=== PATIENT | female | born 1965 | race Caucasian/White ===

== ENCOUNTER → 2016-11-29 | Outpatient (CLI) | payer MEDICARE ==
[2016-11-29 10:56] LABS: ABSOLUTE EOSINOPHILS # (AUTO) 0.1 10^3/uL (0.0-0.6); ABSOLUTE MONOCYTES (AUTO) 0.5 10^3/uL (0.1-1.4); ABSOLUTE NEUT (AUTO) 5.2 10^3/uL (1.7-8.2); BASOPHILS % (AUTO) 0.4 % (0-2); EOSINOPHILS % (AUTO) 1.1 % (0-6); LYMPHOCYTES % (AUTO) 34.2 % (13-45); MEAN CORPUSCULAR HEMOGLOBIN 30.3 pg (27.0-33.4); MEAN CORPUSCULAR HGB CONC 34.8 g/dL (32.0-36.0); MEAN CORPUSCULAR VOLUME 87 fl (80-97); RED BLOOD COUNT 5.28 10^6/uL (3.72-5.28); RED CELL DISTRIBUTION WIDTH 14.1 % (11.5-14.0); SEGMENTED NEUTROPHILS % (AUTO) 58.3 % (42-78); WHITE BLOOD COUNT 8.8 10^3/uL (4.0-10.5)
[2016-11-29 10:57] LABS: ABSOLUTE EOSINOPHILS # (AUTO) 0.1 10^3/uL (0.0-0.6); ABSOLUTE MONOCYTES (AUTO) 0.5 10^3/uL (0.1-1.4); ABSOLUTE NEUT (AUTO) 5.2 10^3/uL (1.7-8.2); BASOPHILS % (AUTO) 0.4 % (0-2); EOSINOPHILS % (AUTO) 1.1 % (0-6); LYMPHOCYTES % (AUTO) 34.2 % (13-45); MEAN CORPUSCULAR HEMOGLOBIN 30.3 pg (27.0-33.4); MEAN CORPUSCULAR HGB CONC 34.8 g/dL (32.0-36.0); MEAN CORPUSCULAR VOLUME 87 fl (80-97); RED BLOOD COUNT 5.28 10^6/uL (3.72-5.28); RED CELL DISTRIBUTION WIDTH 14.1 % (11.5-14.0); SEGMENTED NEUTROPHILS % (AUTO) 58.3 % (42-78); WHITE BLOOD COUNT 8.8 10^3/uL (4.0-10.5)
[2016-11-29 11:23] LABS: ALANINE AMINOTRANSFERASE 40 U/L (9-52); ALBUMIN 4.4 g/dL (3.5-5.0); ALKALINE PHOSPHATASE 84 U/L (38-126); ANION GAP 11 (5-19); ASPARTATE AMINO TRANSFERASE 23 U/L (14-36); BILIRUBIN,TOTAL 0.6 mg/dL (0.2-1.3); BLOOD UREA NITROGEN 15 mg/dL (7-20); CALCIUM 10.1 mg/dL (8.4-10.2); CARBON DIOXIDE 25 mmol/L (22-30); CHLORIDE 103 mmol/L (98-107); CHOLESTEROL 245.45 mg/dL (0-200); CREATININE RESULT 0.92 mg/dL (0.52-1.25); Direct HDL 35 mg/dL (>40); GLUCOSE 95 mg/dL (75-110); POTASSIUM 4.6 mmol/L (3.6-5.0); SODIUM 139.1 mmol/L (137-145); TOTAL PROTEIN 7.7 g/dL (6.3-8.2); TRIGLYCERIDES 425 mg/dL (<150)
[2016-11-29 11:38] LABS: DIRECT LDL 134 mg/dL (<100)
[2016-11-29 11:49] LABS: ALBUMIN 4.4 g/dL (3.5-5.0); ANION GAP 11 (5-19); ASPARTATE AMINO TRANSFERASE 23 U/L (14-36); BLOOD UREA NITROGEN 15 mg/dL (7-20); CALCIUM 10.1 mg/dL (8.4-10.2); CARBON DIOXIDE 25 mmol/L (22-30); CHLORIDE 103 mmol/L (98-107); CREATININE RESULT 0.92 mg/dL (0.52-1.25); GLUCOSE 95 mg/dL (75-110); POTASSIUM 4.6 mmol/L (3.6-5.0); SODIUM 139.1 mmol/L (137-145)
[2016-11-29 11:50] LABS: ALANINE AMINOTRANSFERASE 40 U/L (9-52); ALKALINE PHOSPHATASE 84 U/L (38-126); BILIRUBIN,TOTAL 0.6 mg/dL (0.2-1.3); CHOLESTEROL 245.45 mg/dL (0-200); DIRECT LDL 134 mg/dL (<100); Direct HDL 35 mg/dL (>40); TOTAL PROTEIN 7.7 g/dL (6.3-8.2); TRIGLYCERIDES 425 mg/dL (<150)
== END ==
LOC: OD 10:10
DX: R73.9 Hyperglycemia, unspecified (principal); I10 Essential (primary) hypertension; Z79.899 Other long term (current) drug therapy; K21.0 Gastro-esophageal reflux disease with esophagitis; Z92.29 Personal history of other drug therapy; F32.9 Major depressive disorder, single episode, unspecified; F40.01 Agoraphobia with panic disorder; F41.1 Generalized anxiety disorder
CPT/HCPCS: 36415; 80053; 80061; 83036; 84443; 85025

== ENCOUNTER → 2019-11-18 | Outpatient (CLI) | payer MEDICARE ==
[2019-11-18 12:26] LABS: HEMATOCRIT 40.8 % (36.0-47.0); HEMOGLOBIN 13.6 g/dL (12.0-15.5); MEAN CORPUSCULAR HEMOGLOBIN 27.4 pg (27.0-33.4); MEAN CORPUSCULAR HGB CONC 33.3 g/dL (32.0-36.0); MEAN CORPUSCULAR VOLUME 82 fl (80-97); PLATELET COUNT 440 10^3/uL (150-450); RED BLOOD COUNT 4.96 10^6/uL (3.72-5.28); RED CELL DISTRIBUTION WIDTH 15.9 % (11.5-14.0); WHITE BLOOD COUNT 14.3 10^3/uL (4.0-10.5)
[2019-11-18 12:46] LABS: ALBUMIN 3.7 g/dL (3.5-5.0); ALKALINE PHOSPHATASE 95 U/L (38-126); ANION GAP 15 (5-19); ASPARTATE AMINO TRANSFERASE 19 U/L (14-36); BILIRUBIN,DIRECT 0.4 mg/dL (0.0-0.4); BILIRUBIN,TOTAL 0.5 mg/dL (0.2-1.3); BLOOD UREA NITROGEN 8 mg/dL (7-20); CALCIUM 9.6 mg/dL (8.4-10.2); CARBON DIOXIDE 22 mmol/L (22-30); CHLORIDE 104 mmol/L (98-107); CHOLESTEROL 197.91 mg/dL (0-200); GLUCOSE 118 mg/dL (75-110); TOTAL PROTEIN 7.1 g/dL (6.3-8.2); TRIGLYCERIDES 102 mg/dL (<150)
[2019-11-18 12:57] LABS: DIRECT LDL 150 mg/dL (<100)
[2019-11-19 08:37] LABS: HEPATITIS C VIRUS AB <0.1 s/co ratio (0.0-0.9)
== END ==
LOC: OD 11:05
PROVIDERS: ATTEND Nurse Practitioner
DX: Z79.899 Other long term (current) drug therapy (principal)
CPT/HCPCS: 36415; 80053; 80061; 82306; 82607; 83036; 84443; 86803; 86804

== ENCOUNTER 2019-11-20 17:04 | Inpatient (IN) | payer MEDICARE ==
--- NOTE | 2019-11-20 17:18 | ER Document Report ---
ED Medical Screen (RME) - General Chief Complaint: Numbness of Arm Stated Complaint: RIGHT ARM NUMBNESS/NAUSEA Time Seen by Provider: 11/20/19 17:11 Primary Care Provider: OLIVIA MATA NP [Primary Care Provider] - Follow up as needed TRAVEL OUTSIDE OF THE [place] IN LAST 30 DAYS: No - HPI Notes: 11/20/19 17:15 Patient is a 54-year-old female with history of hypertension who presents complaining of inability to lift up her right arm, intermittent nausea, blurry vision, left-sided headache, feeling off balance for the past 2 days. There is no precipitating event or injury. Patient states that she did have some numbness in that right arm, but that has improved. She is able to eat and drink, but does have decreased p.o. intake. She is not on any blood thinning medications. No history of CVA. I have treated and performed a rapid initial assessment of this patient. A comprehensive ED assessment and evaluation of the patient, analysis of test results and completion of medical decision making process will be conducted by additional ED providers. PHYSICAL EXAMINATION: GENERAL: Well-appearing, well-nourished and in no acute distress. A&Ox4. Answers questions appropriately. Neuro: Sensation is intact distally. She has minimal strength in the right arm, intranet developer strength is 3+ out of 5 compared to the left. NIH roughly a 3 for the RUE deficit(s). Face is symmetric. Doctor's Discharge - Discharge Referrals: OLIVIA MATA NP [Primary Care Provider] - Follow up as needed
[2019-11-20] MEDS ORDERED: ONDANSETRON 4 MG TAB.RAPDIS PO ONE (17:19)
[2019-11-20] MEDS ORDERED: ACETAMINOPHEN 325 MG TABLET PO ONE (17:19)
--- NOTE | 2019-11-20 18:15 | RADIOLOGY REPORT (SQ) ---
EXAM DESCRIPTION: CT HEAD WITHOUT COMPLETED DATE/TIME: 11/20/2019 6:02 pm REASON FOR STUDY: right arm weakness, possible stroke x2 days COMPARISON: 11/03/2013 TECHNIQUE: Axial images acquired through the brain without intravenous contrast. Images reviewed wi th bone, brain and subdural windows. Additional sagittal and coronal reconstructions were generated. Images stored on PACS. All CT scanners at this facility use dose modulation, iterative reconstruction, and/or weight based d osing when appropriate to reduce radiation dose to as low as reasonably achievable (ALARA). [facility]: Dose Right [facility]: CareDose [facility]: Dose Right [facility]: Teradose 4D [facility]: Smart iContact RADIATION DOSE: CT Rad equipment meets quality standard of care and radiation dose reduction techniq ues were employed. CTDIvol: 53.2 mGy. DLP: 937 mGy-cm. mGy. LIMITATIONS: None. FINDINGS: VENTRICLES: Normal size and contour. CEREBRUM: There is an area of loss of hays/ white differentiation in the posterior frontal lobe. The re is no hemorrhage. There is no midline shift or mass effect. Normal hays/white matter differentiat ion. No areas of low density in the white matter. CEREBELLUM: No masses. No hemorrhage. No alteration of density. No evidence for acute infarction. EXTRAAXIAL SPACES: No fluid collections. No masses. ORBITS AND GLOBE: No intra- or extraconal masses. Normal contour of globe without masses. CALVARIUM: No fracture. PARANASAL SINUSES: No fluid or mucosal thickening. SOFT TISSUES: No mass or hematoma. OTHER: No other significant finding. IMPRESSION: Likely acute left posterior frontal infarction. EVIDENCE OF ACUTE STROKE: YES. LEFT TRE. COMMENT: Pertinent findings on the imaging study reported as a CRITICAL RESULT to RENNY HAMEED PA-C at18:08 on 11/20/2019. Category of Critical Result: Left frontal infarction. Quality ID # [id number]: Final reports with documentation of one or more dose reduction techniques (e.g., Au tomated exposure control, adjustment of the mA and/or kV according to patient size, use of iterative reconstruction technique) TECHNICAL DOCUMENTATION: JOB ID: [id number] 2010 [employer]- All Rights Reserved Reading location - IP/workstation name: [email or web address]
[2019-11-20 18:32] LABS: APPEARANCE,URINE SLIGHTLY-CLOUDY; BILIRUBIN,URINE NEGATIVE (NEGATIVE); CALCIUM OXALATE CRYSTALS,URINE RARE /HPF; COLOR,URINE AMBER; GLUCOSE, URINE NEGATIVE (NEGATIVE); KETONES,URINE NEGATIVE (NEGATIVE); PROTEIN,URINE 30 mg/dL (NEGATIVE); URINE SPECIFIC GRAVITY 1.024; UROBILINOGEN,URINE NEGATIVE mg/dL (<2.0)
[2019-11-20 18:39] LABS: ABSOLUTE BASOPHILS # (AUTO) 0.1 10^3/uL (0.0-0.2); ABSOLUTE EOSINOPHILS # (AUTO) 0.1 10^3/uL (0.0-0.6); ABSOLUTE LYMPHOCYTES (AUTO) 2.7 10^3/uL (0.5-4.7); ABSOLUTE MONOCYTES (AUTO) 1.1 10^3/uL (0.1-1.4); ABSOLUTE NEUT (AUTO) 8.3 10^3/uL (1.7-8.2); BASOPHILS % (AUTO) 0.5 % (0-2); EOSINOPHILS % (AUTO) 0.6 % (0-6); HEMATOCRIT 38.7 % (36.0-47.0); HEMOGLOBIN 13.3 g/dL (12.0-15.5); LYMPHOCYTES % (AUTO) 22.4 % (13-45); MEAN CORPUSCULAR HEMOGLOBIN 28.1 pg (27.0-33.4); MEAN CORPUSCULAR HGB CONC 34.4 g/dL (32.0-36.0); MEAN CORPUSCULAR VOLUME 82 fl (80-97); MONOCYTES % (AUTO) 8.6 % (3-13); PLATELET COUNT 427 10^3/uL (150-450); RED BLOOD COUNT 4.75 10^6/uL (3.72-5.28); RED CELL DISTRIBUTION WIDTH 15.9 % (11.5-14.0); SEGMENTED NEUTROPHILS % (AUTO) 67.9 % (42-78); TOTAL CELLS COUNTED % (AUTO) 100 %; WHITE BLOOD COUNT 12.3 10^3/uL (4.0-10.5)
--- NOTE | 2019-11-20 18:40 | EKG REPORT ---
SEVERITY:- BORDERLINE ECG - SINUS RHYTHM BORDERLINE T ABNORMALITIES, ANT-LAT LEADS VPCs : Confirmed by: Aroldo Burkett 20-Nov-2019 18:39:28
[2019-11-20 18:49] LABS: INTERNATIONAL RATION (INR) 0.99; PARTIAL THROMBOPLASTIN TIME 29.2 SEC (23.5-35.8); PROTHROMBIN TIME 13.1 SEC (11.4-15.4)
--- NOTE | 2019-11-20 18:49 | ER Document Report ---
ED Neuro Symptoms/Deficit - General Chief Complaint: S/S of Possible Stroke Stated Complaint: RIGHT ARM NUMBNESS/NAUSEA Time Seen by Provider: 11/20/19 17:11 Mode of Arrival: Ambulatory Information source: Patient Notes: 54-year-old woman presents to the emergency department with a history of awoke on Saturday morning with numbness and weakness in the right arm. Stated that she fell on Saturday onto the right side injuring her right shoulder she went to the urgent care x-ray was performed and revealed no fracture according to the patient. She continues to have numbness and weakness in the right upper extremity, she denies new weakness in the right arm. She also noted an episode of numbness in the left facial area. Speech is been normal she has a history of blurred vision in the left eye. She denies any other new neurologic findings. TRAVEL OUTSIDE OF THE [place] IN LAST 30 DAYS: No - Related Data Allergies/Adverse Reactions: ibuprofen Allergy (Verified 11/20/19 19:27) Penicillins Allergy (Verified 11/20/19 19:27) Home Medications: Lyrica. Vicodin. Propranolol. Cymbalta Past Medical History - General Information source: Patient - Social History Smoking Status: Current Every Day Smoker Chew tobacco use (# tins/day): No Frequency of alcohol use: None Drug Abuse: None Family History: Reviewed & Not Pertinent Patient has suicidal ideation: No Patient has homicidal ideation: No Review of Systems - Review of Systems Notes: Constitutional: Negative for fever. HENT: Negative for sore throat. Eyes: Negative for visual changes. Cardiovascular: Negative for chest pain. Respiratory: Negative for shortness of breath. Gastrointestinal: Negative for abdominal pain, vomiting or diarrhea. Genitourinary: Negative for dysuria. Musculoskeletal: Negative for back pain. Skin: Negative for rash. Neurological: + Numbness and tingling upper extremity, right lower extremity 10 point ROS negative except as marked above and in HPI. Physical Exam - Vital signs Vitals: Pulse Ox 96 11/20/19 17:05 - Notes Notes: PHYSICAL EXAMINATION: Physical Exam: General: Well-appearing, well-nourished; attentive, alert and interactive with good eye contact; acting appropriately for age HEAD: Normocephalic; atraumatic; No swelling EYES: PERRL; Conjunctivae clear, no drainage; EOMI ENT: External ears without lesions; External auditory canal is patent; TMs without erythema, landmarks clear and well visualized; no rhinorrhea; Pharynx without erythema or lesions, no tonsillar hypertrophy, airway patent, mucous membranes pink and moist NECK: Supple, no cervical lymphadenopathy, no masses CARD: Regular rate and rhythm; no murmurs, no rubs, no gallops, capillary refill < 2 seconds, symmetric pulses RESP: Respiratory rate and effort are normal. There is normal chest excursion. No respiratory distress, no retractions, no stridor, no nasal flaring, no accessory muscle use. The lungs are clear to auscultation bilaterally, no wheezing, no rales, no rhonchi. ABD/GI: Normal bowel sounds; non-distended; soft, non-tender, no rebound, no g uarding, no palpable organomegaly EXT: Decreased range of motion at the right shoulder secondary to pain. She has good private secretary in the right hand and good flexion in the right elbow. All the other joints move well. SKIN: Intact, no lesion NEURO: + Numbness of the right upper extremity, no facial asymmetry; Moves all extremities equally; Motor and sensory function intact, speech is normal, normal facial symmetry. Cerebellar testing unable to perform [id number] right upper extremity due to shoulder pain. [id number] normal left upper extremity [id number] normal. PSYCH: Normal mood, normal affect. Course - Re-evaluation Re-evalutation: 11/20/19 20:42 54-year-old woman who presents with neurologic symptoms which began 2 days ago. Apparently she awoke on Saturday morning with numbness and tingling along with weakness in her right upper extremity. She also notes some numbness and tingling in the right lower extremity with weakness. She sustained a fall at home injuring her right shoulder. My exam tonight reveals good private secretary and flexion in the right upper extremity with normal strength and function in the lower extremities. Her INH score is 1-2 based on the loss of sensory function. Cerebellar testing appears normal. Vision intact with no speech involvement. She has good recall and orientation. The patient is not a candidate for TPA based on symptoms greater than 48 hours. She is being admitted to the hospital for further evaluation for stroke risks and treatment. - Vital Signs Vital signs: Temp Pulse Resp BP Pulse Ox 98.0 F 74 18 111/39 L 100 11/21/19 08:29 11/21/19 08:29 11/21/19 08:29 11/21/19 08:29 11/21/19 08:29 Patient with right-sided numbness and tingling in her right arm and right lower extremity. History of a fall with a secondary associated left shoulder pain. CT of the brain reveals a likely acute posterior frontal infarct. Spoke with the hospitalist, , he will admit the patient to the hospital for further evaluation and treatment. - Laboratory Result Diagrams: 11/21/19 04:59 11/21/19 04:59 Laboratory results interpreted by me: 11/20/19 11/20/19 11/20/19 18:00 18:30 18:30 WBC 12.3 H RDW 15.9 H Absolute Neuts (auto) 8.3 H Calcium 10.3 H ALT 37 H Urine Protein 30 H Urine Blood SMALL H 11/20/19 20:36 I have reviewed laboratory data and used this information for the treatment decisions regarding the patient. - EKG Interpretation by Me EKG shows normal: Sinus rhythm - Borderline T wave abnormalities otherwise normal EKG rate of 82. Discharge - Discharge Clinical Impression: CVA (cerebral vascular accident) Qualifiers: CVA mechanism: unspecified Qualified Code(s): I63.9 - Cerebral infarction, unspecified Contusion of right shoulder Qualifiers: Encounter type: initial encounter Qualified Code(s): S40.011A - Contusion of right shoulder, initial encounter Hypertension Qualifiers: Hypertension type: essential hypertension Qualified Code(s): I10 - Essential (primary) hypertension Condition: Stable Disposition: ADMITTED INPATIENT Admitting Provider: Loretta (Hospitalist) Unit Admitted: [facility]
[2019-11-20] MEDS ORDERED: ASPIRIN 325 MG TABLET PO ONE (18:51)
[2019-11-20] MEDS ORDERED: HYDROCODONE/ACETAMINOPHEN 5-325 MG TABLET PO ONE (18:53)
[2019-11-20 18:55] LABS: ALBUMIN 3.9 g/dL (3.5-5.0); ALKALINE PHOSPHATASE 99 U/L (38-126); ANION GAP 11 (5-19); ASPARTATE AMINO TRANSFERASE 28 U/L (14-36); BILIRUBIN,DIRECT 0.4 mg/dL (0.0-0.4); BILIRUBIN,TOTAL 0.5 mg/dL (0.2-1.3); BLOOD UREA NITROGEN 15 mg/dL (7-20); CALCIUM 10.3 mg/dL (8.4-10.2); CARBON DIOXIDE 27 mmol/L (22-30); CHLORIDE 100 mmol/L (98-107); GLUCOSE 110 mg/dL (75-110); POTASSIUM 4.1 mmol/L (3.6-5.0); TOTAL PROTEIN 7.7 g/dL (6.3-8.2)
[2019-11-20] MEDS ORDERED: LABETALOL HCL INJ 20 MG/4 ML DISP.SYRIN IV PRN (20:14)
[2019-11-20] MEDS ORDERED: DOCUSATE SODIUM 100 MG CAPSULE PO PRN (20:14)
[2019-11-20] MEDS ORDERED: TEMAZEPAM 15 MG CAPSULE PO PRN (20:14)
[2019-11-20] MEDS ORDERED: MAGNESIUM HYDROXIDE SUSP 30 ML UDCUP PO PRN (20:14)
--- NOTE | 2019-11-20 20:16 | RADIOLOGY REPORT (SQ) ---
EXAM DESCRIPTION: XR HUMERUS x-ray two views COMPLETED DATE/TME: 11/20/2019 18:40 CLINICAL HISTORY: 54 years, Female, fall COMPARISON: None. FINDINGS: No fracture or dislocation. Soft tissues are unremarkable. IMPRESSION: No acute abnormality.
[2019-11-20] MEDS ORDERED: PROMETHAZINE HCL INJ 25 MG/1 ML VIAL IV PRN (20:19)
[2019-11-20] MEDS ORDERED: LEVALBUTEROL HCL NEB 0.63 MG/3 ML AMPUL NEB PRN (20:19)
[2019-11-20] MEDS ORDERED: MAG HYDROX/AL HYDROX/SIMETH SUSP 30 ML UDCUP PO PRN (20:19)
[2019-11-20] MEDS ORDERED: GUAIFENESIN SYRP 200 MG/10 ML UDC PO PRN (20:19)
[2019-11-20] MEDS ORDERED: MORPHINE SULFATE 10 MG/ML INJ IV PRN ×3 (20:19)
[2019-11-20] MEDS ORDERED: RINGERS SOLUTION,LACTATED 1,000 ML IV PRN (20:22)
[2019-11-20] MEDS: HEPARIN SOD (PORCINE) 5,000 UNIT/ML 1 ML VIAL SUBCUT SCH (21:15)
[2019-11-20] MEDS: FAMOTIDINE 20 MG TABLET PO SCH (21:15)
[2019-11-20] MEDS: CLOPIDOGREL BISULFATE 75 MG TABLET PO SCH (21:15)
[2019-11-21] MEDS: ACETAMINOPHEN 325 MG TABLET PO PRN ×4 (01:05→16:45)
--- NOTE | 2019-11-21 03:16 | PDOC H&P ---
History of Present Illness Admission Date/PCP: 11/20/2019 19:04 OLIVIA MATA NP Patient complains of: Right-sided numbness History of Present Illness: PAULA JOHNSON is a 54 year old female who presented to the emergency room with a 2-day history of numbness in her right arm. She admits waking on 11/18/2019 with numbness and weakness in her right (nondominant) upper extremity. Later that day she fell injuring her right shoulder and presented to urgent care where an x-ray was performed that revealed no evidence of fracture. The numbness in her right arm has been constant and moderately severe since she first noticed it on Saturday morning, the weakness in her right arm has been gradually improving. Her numbness has been accompanied by a constant dull left-sided headache and has been associated with an episode of transient left facial numbness, a "feeling of being off balance" as well as intermittent episodes of nausea. She denies other associated or accompanying signs and symptoms. She denies prior similar episodes. She has not identified any aggravating or ameliorating factors for her right arm numbness. In the emergency room she was found to have right upper extremity weakness and numbness on clinical evaluation and a CT scan that confirmed an acute left posterior frontal CVA. Patient was subsequently admitted to the stroke protocol on [facility] for further evaluation and treatment. Past Medical History Cardiac Medical History: Reports: Hypertension Denies: Atrial Fibrillation, Congestive Heart Failure, Coronary Artery Disease, DVT, Myocardial Infarction, Hyperlipidema, Pulmonary Embolism Pulmonary Medical History: Denies: Asthma, Chronic Obstructive Pulmonary Disease (COPD) EENT Medical History: Denies: Cataracts, Ears - Hearing aids Neurological Medical History: Denies: Hemorrhagic CVA, Ischemic CVA, Seizures Endocrine Medical History: Denies: Diabetes Mellitus Type 1, Diabetes Mellitus Type 2, Hyperthyroidism, Hypothyroidism Renal/ Medical History: Reports: Other - Vitamin D deficiency Denies: Chronic Kidney Disease, Nephrolithiasis Malignancy Medical History: Reports: None GI Medical History: Denies: Cirrhosis, Crohn's Disease, Gastroesophageal Reflux Disease, Hepatitis, Peptic Ulcer Disease, Ulcerative Colitis Musculoskeltal Medical History: Reports: Arthritis - Chronic degenerative spinal disc disease with chronic back pain Denies: Gout Skin Medical History: Denies: Eczema, Psoriasis Psychiatric Medical History: Reports: Tobacco Dependency Denies: Alcohol Dependency, Substance Abuse Traumatic Medical History: Reports: None Hematology: Denies: Anemia, Bleeding Tendencies Infectious Medical History: Reports: None Past Surgical History Past Surgical History: Reports: Orthopedic Surgery - Back surgery Social History Information Source: Patient Lives with: Spouse/Significant other Smoking Status: Current Every Day Smoker Electronic Cigarette use?: Yes Frequency of Alcohol Use: None Hx Recreational Drug Use: No Drugs: None Hx Prescription Drug Abuse: No - Advance Directive Resuscitation Status: Full Code Surrogate healthcare decision maker:: Ajith Johnson Family History Family History: CVA, Hypertension. denies: CAD, DM, Malignancy Parental Family History Reviewed: Yes Children Family History Reviewed: No Sibling(s) Family History Reviewed.: Yes Medication/Allergy Home Medications: Albuterol Sulfate [Ventolin Hfa 8 gm Mdi] 2 puff IH Q6HP PRN 11/20/19 Duloxetine HCl [Cymbalta 30 mg Capsule.dr] 30 mg PO DAILY 11/20/19 Hydrocodone/Acetaminophen [[place] 10-325 mg Tablet] 1 tab PO Q4HP PRN MDD 2-3 DAILY 11/20/19 Lansoprazole 30 mg PO DAILY 11/20/19 Pregabalin [Lyrica 50 Mg Capsule] 50 mg PO TID 11/20/19 Propranolol HCl [Inderal 40 Mg Tablet] 40 mg PO BID 11/20/19 Allergies/Adverse Reactions: ibuprofen Allergy (Verified 11/20/19 19:27) Penicillins Allergy (Verified 11/20/19 19:27) Review of Systems Constitutional: PRESENT: as per HPI, headache(s). ABSENT: chills, fever(s) Eyes: PRESENT: visual disturbances - Chronic blurry vision. ABSENT: other - Eye pain Ears: ABSENT: hearing changes, other - Ear pain Nose, Mouth, and Throat: PRESENT: as per HPI, headache(s). ABSENT: mouth pain, sore throat Cardiovascular: ABSENT: chest pain, palpitations Respiratory: ABSENT: cough, dyspnea Gastrointestinal: PRESENT: as per HPI, nausea. ABSENT: abdominal pain, constipation, diarrhea, vomiting Genitourinary: ABSENT: dysuria, hematuria Musculoskeletal: PRESENT: as per HPI. ABSENT: back pain, joint swelling Integumentary: ABSENT: pruritus, rash Neurological: PRESENT: as per HPI, focal weakness, lack of coordination, numb ness. ABSENT: abnormal speech, confusion, convulsions, memory loss, syncope Psychiatric: ABSENT: anxiety, depression Endocrine: ABSENT: cold intolerance, heat intolerance, polydipsia, polyphagia, polyuria Hematologic/Lymphatic: ABSENT: easy bleeding, easy bruising Allergic/Immunologic: ABSENT: seasonal rhinorrhea Physical Exam Vital Signs: Temp Pulse Resp BP Pulse Ox 86 28 H 106/45 L 95 11/20/19 18:00 11/20/19 19:14 11/20/19 19:14 11/20/19 19:14 Intake & Output 11/18/19 11/19/19 11/20/19 23:59 23:59 23:59 Weight 73 kg General appearance: PRESENT: no acute distress, cooperative Head exam: PRESENT: atraumatic, normocephalic Eye exam: PRESENT: conjunctiva pink. ABSENT: conjunctival injection, scleral icterus Ear exam: PRESENT: normal external ear exam. ABSENT: bleeding, drainage Mouth exam: PRESENT: dry mucosa, neck supple Neck exam: ABSENT: thyromegaly, tracheal deviation Respiratory exam: PRESENT: clear to auscultation josé luis, symmetrical, unlabored Cardiovascular exam: PRESENT: RRR. ABSENT: clicks, gallop, rubs Pulses: PRESENT: normal radial pulses, normal dorsalis pedis pul Vascular exam: PRESENT: normal capillary refill. ABSENT: pallor GI/Abdominal exam: PRESENT: normal bowel sounds, soft. ABSENT: tenderness Rectal exam: PRESENT: deferred Extremities exam: ABSENT: joint swelling, pedal edema Musculoskeletal exam: ABSENT: deformity, dislocation Neurological exam: PRESENT: alert, oriented to person, oriented to place, oriented to time, oriented to situation, CN II-XII grossly intact, motor sensory deficit - Right upper extremity weakness: Business Control Specialist strength 2/4 compared to 4/4 on the left. Decreased sensation of the right upper extremity to tactile stimulation. Psychiatric exam: PRESENT: appropriate affect, normal mood Skin exam: PRESENT: dry, intact, warm. ABSENT: jaundice, rash, urticaria Results Laboratory Results: 11/20/19 18:30 11/20/19 18:30 11/20/19 11/20/19 11/20/19 18:00 18:30 18:30 WBC 12.3 H RBC 4.75 Hgb 13.3 Hct 38.7 MCV 82 MCH 28.1 MCHC 34.4 RDW 15.9 H Plt Count 427 Seg Neutrophils % 67.9 Sodium 138.1 Potassium 4.1 Chloride 100 Carbon Dioxide 27 Anion Gap 11 BUN 15 Creatinine 0.63 Est GFR ( Amer) > 60 Glucose 110 Calcium 10.3 H Total Bilirubin 0.5 AST 28 Alkaline Phosphatase 99 Total Protein 7.7 Albumin 3.9 Urine Color GIULIANA Urine Appearance SLIGHTLY-CLOUDY Urine pH 5.0 Ur Specific [place] 1.024 Urine Protein 30 H Urine Glucose (UA) NEGATIVE Urine Ketones NEGATIVE Urine Blood SMALL H Urine RBC (Auto) 7 Impressions: Head CT 11/20/19 17:18 IMPRESSION: Likely acute left posterior frontal infarction. EVIDENCE OF ACUTE STROKE: YES. LEFT TRE. Assessment and Plan - Diagnosis (1) Acute ischemic cerebrovascular accident (CVA) involving anterior cerebral artery territory Is this a current diagnosis for this admission?: Yes (2) Hypertension Qualifiers: Hypertension type: essential hypertension Qualified Code(s): I10 - Essential (primary) hypertension Is this a current diagnosis for this admission?: Yes (3) Vitamin D deficiency, unspecified Is this a current diagnosis for this admission?: Yes (4) Tobacco use disorder, continuous Is this a current diagnosis for this admission?: Yes - Plan Summary Summary: Patient is admitted to [facility] per the stroke protocol where she will receive routine supportive and symptomatic cares. An MRI of the brain will be obtained. A bilateral carotid Doppler study will be obtained. An echocardiogram will be obtained. Patient will be started on clopidogrel 75 mg p.o. daily. Routine la boratory evaluations will be obtained per the stroke protocol. Patient will be continued on her usual home medications as appropriate once her medication list has been verified and reconciled. She will use morphine sulfate 2 to 4 mg IV every 2 hours as needed for pain and Ativan 1 mg IV every 4 hours as needed for anxiety. Smoking cessation is advised and counseled briefly at the bedside. - Time Time Spent with patient: 25-34 minutes Smoking Cessation Education: 3 to 10 minutes Anticipated discharge: Home - Inpatient Certification Based on my medical assessment, after consideration of the patient's comorbidities, presenting symptoms, or acuity I expect that the services needed warrant INPATIENT care.: Yes I certify that my determination is in accordance with my understanding of Medicare's requirements for reasonable and necessary INPATIENT services [42 CFR 412.3e].: Yes Medical Necessity: Need Close Monitoring Due to Risk of Patient Decompensation, Need For Continuous Telemetry Monitoring, Need for Neurological Checks, Risk of Complication if Not Cared For in Hospital
[2019-11-21 05:20] LABS: HEMATOCRIT 34.9 % (36.0-47.0); MEAN CORPUSCULAR HEMOGLOBIN 27.7 pg (27.0-33.4); MEAN CORPUSCULAR HGB CONC 34.3 g/dL (32.0-36.0); MEAN CORPUSCULAR VOLUME 81 fl (80-97); PLATELET COUNT 339 10^3/uL (150-450); RED BLOOD COUNT 4.32 10^6/uL (3.72-5.28); RED CELL DISTRIBUTION WIDTH 16.1 % (11.5-14.0); WHITE BLOOD COUNT 9.8 10^3/uL (4.0-10.5)
[2019-11-21 05:41] LABS: CHOLESTEROL 155.32 mg/dL (0-200)
[2019-11-21 05:46] LABS: ANION GAP 9 (5-19); BLOOD UREA NITROGEN 12 mg/dL (7-20); CALCIUM 9.2 mg/dL (8.4-10.2); CARBON DIOXIDE 24 mmol/L (22-30); CHLORIDE 106 mmol/L (98-107); GLUCOSE 108 mg/dL (75-110); POTASSIUM 3.8 mmol/L (3.6-5.0)
[2019-11-21 05:48] LABS: TRIGLYCERIDES 150 mg/dL (<150)
[2019-11-21 05:52] LABS: DIRECT LDL 102 mg/dL (<100)
[2019-11-21] MEDS: HEPARIN SOD (PORCINE) 5,000 UNIT/ML 1 ML VIAL SUBCUT SCH ×3 (06:46→21:16)
[2019-11-21] MEDS: CHOLECALCIFEROL (D3) 1,000 UNIT (25 MCG) TABLET PO SCH (10:25)
[2019-11-21] MEDS: CLOPIDOGREL BISULFATE 75 MG TABLET PO SCH (10:25)
[2019-11-21] MEDS: FAMOTIDINE 20 MG TABLET PO SCH ×2 (10:25→21:16)
[2019-11-21] MEDS: NICOTINE 21 MG/24 HR PATCH.TD24 TD PRN (10:32)
--- NOTE | 2019-11-21 11:37 | PDOC PROGRESS REPORT ---
Subjective Progress Note for:: 11/21/19 Subjective:: The patient was very pleased to show me that she has regained a lot of function in her right arm. She was waving it around. She has not had her MRI yet nor her echocardiogram or carotid studies so I told her that she could not go home today but I would rather want to watch her for another day. Reason For Visit: ACUTE LEFT ANTERIOR CEREBRAL DISTRIBUTION Physical Exam Vital Signs: Temp Pulse Resp BP Pulse Ox 98.0 F 74 18 111/39 L 100 11/21/19 08:29 11/21/19 08:29 11/21/19 08:29 11/21/19 08:29 11/21/19 08:29 Intake & Output 11/20/19 11/21/19 11/22/19 06:59 06:59 06:59 Output Total 0 Balance 0 Weight 73.2 kg General appearance: PRESENT: no acute distress, cooperative, well-developed Head exam: PRESENT: atraumatic, normocephalic Ear exam: PRESENT: normal external ear exam. ABSENT: bleeding, drainage Neck exam: ABSENT: carotid bruit, JVD, lymphadenopathy Respiratory exam: PRESENT: clear to auscultation josé luis, symmetrical, unlabored. ABSENT: rales, rhonchi, tachypnea, wheezes Cardiovascular exam: PRESENT: RRR, +S1, +S2. ABSENT: diastolic murmur, systolic murmur GI/Abdominal exam: PRESENT: distended - Possibly slightly distended, normal bow el sounds, soft. ABSENT: guarding, tenderness Rectal exam: PRESENT: deferred Gentrourinary exam: ABSENT: indwelling catheter Extremities exam: ABSENT: joint swelling, pedal edema Musculoskeletal exam: PRESENT: normal inspection. ABSENT: deformity Neurological exam: PRESENT: alert, awake, oriented to person, oriented to place, oriented to time, oriented to situation, CN II-XII grossly intact, motor sensory deficit - Right upper extremity still with weakness and decreased protection specialist strength Psychiatric exam: PRESENT: appropriate affect. ABSENT: agitated, anxious Focused psych exam: ABSENT: delusional, restlessness Results Laboratory Results: 11/21/19 04:59 11/21/19 04:59 11/20/19 11/20/19 11/20/19 18:00 18:30 18:30 WBC 12.3 H RBC 4.75 Hgb 13.3 Hct 38.7 MCV 82 MCH 28.1 MCHC 34.4 RDW 15.9 H Plt Count 427 Seg Neutrophils % 67.9 Sodium 138.1 Potassium 4.1 Chloride 100 Carbon Dioxide 27 Anion Gap 11 BUN 15 Creatinine 0.63 Est GFR ( Amer) > 60 Glucose 110 Calcium 10.3 H Total Bilirubin 0.5 AST 28 Alkaline Phosphatase 99 Total Protein 7.7 Albumin 3.9 Triglycerides Cholesterol LDL Cholesterol Direct VLDL Cholesterol HDL Cholesterol Urine Color GIULIANA Urine Appearance SLIGHTLY-CLOUDY Urine pH 5.0 Ur Specific [place] 1.024 Urine Protein 30 H Urine Glucose (UA) NEGATIVE Urine Ketones NEGATIVE Urine Blood SMALL H Urine RBC (Auto) 7 11/21/19 11/21/19 11/21/19 04:59 04:59 04:59 WBC 9.8 RBC 4.32 Hgb 12.0 Hct 34.9 L MCV 81 MCH 27.7 MCHC 34.3 RDW 16.1 H Plt Count 339 Seg Neutrophils % Sodium 138.7 Potassium 3.8 Chloride 106 Carbon Dioxide 24 Anion Gap 9 BUN 12 Creatinine 0.62 Est GFR ( Amer) > 60 Glucose 108 Calcium 9.2 Total Bilirubin AST Alkaline Phosphatase Total Protein Albumin Triglycerides 150 Cholesterol 155.32 LDL Cholesterol Direct 102 H VLDL Cholesterol 30.0 HDL Cholesterol 36 L Urine Color Urine Appearance Urine pH Ur Specific [place] Urine Protein Urine Glucose (UA) Urine Ketones Urine Blood Urine RBC (Auto) Impressions: Head CT 11/20/19 17:18 IMPRESSION: Likely acute left posterior frontal infarction. EVIDENCE OF ACUTE STROKE: YES. LEFT TRE. Humerus X-Ray 11/20/19 18:40 IMPRESSION: No acute abnormality. Assessment and Plan - Diagnosis (1) Acute ischemic cerebrovascular accident (CVA) involving anterior cerebral artery territory Is this a current diagnosis for this admission?: Yes (2) Hypertension Qualifiers: Hypertension type: essential hypertension Qualified Code(s): I10 - Essential (primary) hypertension Is this a current diagnosis for this admission?: Yes (3) Hypercholesterolemia Is this a current diagnosis for this admission?: Yes (4) Vitamin D deficiency, unspecified Is this a current diagnosis for this admission?: Yes (5) Tobacco use disorder, continuous Is this a current diagnosis for this admission?: Yes (6) Leukocytosis Qualifiers: Leukocytosis type: unspecified Qualified Code(s): D72.829 - Elevated white blood cell count, unspecified Is this a current diagnosis for this admission?: Yes (7) Right hemiplegia Is this a current diagnosis for this admission?: Yes - Plan Summary Summary: Patient is admitted to [facility] per the stroke protocol where she will receive routine supportive and symptomatic cares. An MRI of the brain will be obtained. A bilateral carotid Doppler study will be obtained. An echocardiogram will be obtained. Patient will be started on clopidogrel 75 mg p.o. daily. Routine laboratory evaluations will be obtained per the stroke protocol. Patient will be continued on her usual home medications as appropriate once her medication list has been verified and reconciled. She will use morphine sulfate 2 to 4 mg IV every 2 hours as needed for pain and Ativan 1 mg IV every 4 hours as needed for anxiety. Smoking cessation is advised and counseled briefly at the bedside. 11/21/2019 The patient is extremely pleased that she has regained substantial function of her right arm. It is still weak. The CT scan showed stroke involving the left anterior cerebral artery distribution. This afternoon the radiologist called me and stated that it appeared that there was distribution of lesions in the posterior cerebral artery territory as well. This makes it very suspicious for thromboembolic stroke. The echocardiogram and carotid ultrasounds were ordered as routine and I change those to urgent. The tech will need to come in from home to perform the scans. I have put the patient on dual antiplatelet therapy. We will continue her subcutaneous heparin for DVT prophylaxis. The lipid panel that Dr. Burgos ordered shows increased total cholesterol and increased LDL. I have started atorvastatin daily. She does have a history of hypertension but her blood pressures are in the normal range at this time. Will monitor as we do not want her pressures to be too low or too high. She is also being monitored on telemetry. She still smokes cigarettes. I explained how this could be devastating. It puts her at risk for another stroke as well as coronary artery disease and peripheral vascular disease along with renovascular disease. She is wearing a patch at this time and I will continue to strongly encourage tobacco cessation. Physical therapy has been ordered. She still has some deficits in her right arm and she will benefit from occupational therapy as well. We will continue her vitamin D supplement for her deficiency. In addition, her white blood cell count was up yesterday. This was likely an acute reaction to the stroke. It is normal today. We will continue to monitor her laboratory studies. - Time Time Spent with patient: 25-34 minutes Smoking Cessation Education: 3 to 10 minutes Medications reviewed and adjusted accordingly: Yes Anticipated discharge: Home with Homehealth
--- NOTE | 2019-11-21 15:41 | RADIOLOGY REPORT (SQ) ---
EXAM DESCRIPTION: MRI HEAD WITHOUT COMPLETED DATE/TIME: 11/21/2019 1:29 pm REASON FOR STUDY: Right upper extremity numbness and weakness. Recent left TRE infarct. COMPARISON: CT head, 11/20/2019. CT head, 11/03/2019 TECHNIQUE: Multiplanar imaging includes non-contrasted T1, T2, FLAIR, and diffusion with ADC map seq uences. Images stored on PACS. LIMITATIONS: None. FINDINGS: ANATOMY: No anomalies. Normal vascular flow voids. Pituitary fossa normal. CSF SPACES: Normal in size and contour. No hemorrhage. CEREBRUM: Sulci and gyri normal in size and contour. There is diffuse hyperintense T2 signal in the left high parietal lobe paramedian region consistent with recent TRE infarct. This demonstrates suyapa esponding hyperintense T2 signal and diffusion restriction consistent with subacute infarct. No evid ence of hemorrhage, mass, or extraaxial fluid collection. POSTERIOR FOSSA: No signal alteration. No hemorrhage. No edema, masses or mass effect. Internal colt tory canals, cerebello-pontine angles, mastoids normal. DIFFUSION IMAGING: Restricted diffusion in the distribution of the left TRE left parietal lobe. No r estricted diffusion in the right cerebral hemisphere or cerebellum. ORBITS: No masses. Globes normal. PARANASAL SINUSES: No fluid levels. Mucosa normal. OTHER: No other significant finding. IMPRESSION: 1. Restricted diffusion and hyperintense T2 and T2 FLAIR signal in the left occipital lobe suggestive of a late acute to subacute left FOUNDRY FINISHER infarct. Given the distribution of TRE and FOUNDRY FINISHER infarcts, embol ic phenomena in is a consideration. Clinical correlation is recommended. 2. Late acute to subacute infarct in the left TRE distribution as described on recent CT. EVIDENCE OF ACUTE STROKE: Yes COMMENT: Findings discussed with Dr. Haley on 11/21/2019 at 1535 hours. TECHNICAL DOCUMENTATION: JOB ID: [id number] 2010 [employer]- All Rights Reserved Reading location - IP/workstation name: [email or web address]
[2019-11-21] MEDS: PREGABALIN 50 MG CAPSULE PO SCH (18:34)
--- NOTE | 2019-11-21 21:28 | XCELERA REPORT ---
[address] [address] Transthoracic Echocardiogram Report Name: PAULA JOHNSON Age: 54 yrs Gender: Female : 1965 Patient Status: Inpatient Patient Location: [address] [place], [place] [address] Study Date: 11/21/2019 07:52 PM Height: 65 in Weight: 161 lb BSA: 1.8 m2 Procedure: A two-dimensional transthoracic echocardiogram with color flow and Doppler was performed. The study was technically difficult with many images being suboptimal in quality. The study was technically limited with all images being suboptimal in quality. Reason For Study: Multifocal embolic stroke History: Multifocal embolic stroke. Ordering Physician: RON CAMP Performed By: Mona Vivas Interpretation Summary There is no obvious cardiac source of embolus noted on this transthoracic echocardiogram. Follow-up with a [facility] is suggested if cardiac source is still suspected. The left ventricle is normal in size. There is normal left ventricular wall thickness. LV EF is 70% Left ventricular systolic function is normal. Doppler measurements suggest impaired left ventricular relaxation, which is associated with grade I/IV or mild diastolic dysfunction The left ventricular wall motion is normal. No Thrombus.cannot comment on ASD,VSD,or PFO. The right ventricle is grossly normal size. The right atrium is normal. Right atrium not well visualized secondary to technical limitations The left atrial size is normal. There is no evidence of mitral valve prolapse. There is no vegetation seen on the mitral valve. There is no mitral valve stenosis. There is a trace amount of mitral regurgitation There is no aortic valve stenosis There is no LVOT obstruction. No aortic regurgitation is present. There is no tricuspid stenosis. There is a trace amount of tricuspid regurgitation Right ventricular systolic pressure is normal. RVSP is 14 to 19 mm of Hg , with RA mean of 0 to5. There is no pulmonic valvular stenosis. There is no pulmonic valvular regurgitation. The aortic root is not well visualized but is probably normal size. The inferior vena cava appeared small and collapsed with respiration (RAP 0-5 mmHg) There is no pericardial effusion. There is no obvious cardiac source of embolus noted on this transthoracic echocardiogram. Follow-up with a [facility] is suggested if cardiac source is still suspected MMode/2D Measurements & Calculations RVDd: 2.7 cm LVIDd: 4.9 cm FS: 39.9 % Ao root diam: 2.3 cm IVSd: 1.0 cm LVIDs: 2.9 cm EDV(Teich): 110.7 ml Ao root area: 4.0 cm2 LVPWd: 0.77 cm ESV(Teich): 32.8 ml LA dimension: 3.8 cm EF(Teich): 70.4 % Doppler Measurements & Calculations MV E max murali: MV P1/2t max murali: Ao V2 max: LV V1 max P.9 cm/sec 90.0 cm/sec 145.3 cm/sec 7.4 mmHg MV A max murali: MV P1/2t: 74.8 msec Ao max P.4 mmHgLV V1 max: 93.8 cm/sec MVA(P1/2t): 2.9 cm2 135.7 cm/sec MV E/A: 0.89 MV dec slope: 352.5 cm/sec2 MV dec time: 0.20 sec TV V2 max: PA V2 max: MV P1/2t-pr_phl: 184.6 cm/sec 99.7 cm/sec 74.8 msec TV max PG: PA max P.0 mmHg 13.6 mmHg Left Ventricle The left ventricle is normal in size. There is normal left ventricular wall thickness. LV EF is 70%. Left ventricular systolic function is normal. Doppler measurements suggest impaired left ventricular relaxation, which is associated with grade I/IV or mild diastolic dysfunction. The left ventricular wall motion is normal. No Thrombus.cannot comment on ASD,VSD,or PFO. Right Ventricle The right ventricle is grossly normal size. The right ventricle is not well visualized secondary to technical limitations. Atria The right atrium is normal. Right atrium not well visualized secondary to technical limitations. The left atrial size is normal. Mitral Valve There is no evidence of mitral valve prolapse. There is no vegetation seen on the mitral valve. There is no mitral valve stenosis. There is a trace amount of mitral regurgitation. Aortic Valve There is no aortic valve stenosis. There is no LVOT obstruction. No aortic regurgitation is present. Tricuspid Valve There is no tricuspid stenosis. There is a trace amount of tricuspid regurgitation. Right ventricular systolic pressure is normal. RVSP is 14 to 19 mm of Hg , with RA mean of 0 to5. Pulmonic Valve There is no pulmonic valvular stenosis. There is no pulmonic valvular regurgitation. Great Vessels The aortic root is not well visualized but is probably normal size. The inferior vena cava appeared small and collapsed with respiration (RAP 0-5 mmHg). Effusions There is no pericardial effusion. : RON CAMP Lakshmi
[2019-11-21] MEDS ORDERED: ATORVASTATIN CALCIUM 40 MG TABLET PO SCH (22:00)
--- NOTE | 2019-11-21 23:54 | RADIOLOGY REPORT (SQ) ---
EXAM DESCRIPTION: Bilateral carotid duplex exam CLINICAL HISTORY: 54 years Female; Multi-focal embolic stroke TECHNIQUE: Grayscale and Doppler (color and pulse) ultrasound of bilateral carotid arteries and the vertebral arteries was performed. Stenosis assessment based on Carotid Artery Stenosis: Zhu-Scale and Doppler US DiagnosisSociety of Radiologists in Ultrasound Consensus Conference; Radiology, Jul 2003, Vol. 229:340-346 COMPARISON: None. FINDINGS: All velocities in cm/sec. Right carotid: CCA PSV: 99.2 cm/s Proximal ICA velocities: 112 cm/s (Normal < 124/40) Proximal ICA EDV: 30.0 cm/s Mid ICA PSV: 85.9 cm/s Distal ICA PSV: 83.0 cm/s ICA/CCA PSV ratio: 0.9 (Normal < 2.0) ECA: 110.0 cm/s Right vertebral: Antegrade flow Comment: Moderate plaque is seen at the origin of the internal carotid artery. Visually does not result in significant narrowing. Color and spectral waveforms are within normal limits. Left carotid: CCA PSV: 74.2 cm/s ICA velocities: 675 cm/s(Normal < 124/40) Proximal ICA EDV: Not measured Mid ICA PSV: 194 cm/s, end-diastolic velocity: 92.3 cm/s Distal ICA PSV: 223 cm/s ICA/CCA PSV ratio: 8.0 (Normal < 2.0) ECA: 168 cm/s Left vertebral: Antegrade flow Comment: Large amount of plaque is seen in the proximal internal carotid artery. This results in greater than 70% but less than near occlusion narrowing. IMPRESSION: 1. Less than 50% stenosis of the right internal carotid artery. 2. Greater than 70% stenosis of the left internal carotid artery. Marked elevated velocities. Technologist notified Dr. Burgos of the preliminary findings 11/21/2019 at 2122 hours
[2019-11-22] MEDS: LORAZEPAM INJ 2 MG/1 ML VIAL IV PRN ×2 (02:22→13:02)
[2019-11-22] MEDS: HYDROCODONE/ACETAMINOPHEN 10-325 MG TABLET PO PRN ×2 (02:22→08:37)
[2019-11-22] MEDS: HEPARIN SOD (PORCINE) 5,000 UNIT/ML 1 ML VIAL SUBCUT SCH (05:06)
[2019-11-22 06:56] LABS: ANION GAP 8 (5-19); BLOOD UREA NITROGEN 8 mg/dL (7-20); CALCIUM 8.6 mg/dL (8.4-10.2); CARBON DIOXIDE 23 mmol/L (22-30); CHLORIDE 106 mmol/L (98-107); GLUCOSE 116 mg/dL (75-110); POTASSIUM 3.8 mmol/L (3.6-5.0)
[2019-11-22] MEDS ORDERED: ALBUTEROL SULFATE HFA (90 MCG/PUFF) 8 GM MDI IH PRN (09:49)
[2019-11-22] MEDS: CHOLECALCIFEROL (D3) 1,000 UNIT (25 MCG) TABLET PO SCH (09:49)
[2019-11-22] MEDS: CLOPIDOGREL BISULFATE 75 MG TABLET PO SCH (09:49)
[2019-11-22] MEDS: PREGABALIN 50 MG CAPSULE PO SCH (09:50)
[2019-11-22] MEDS: FAMOTIDINE 20 MG TABLET PO SCH (09:51)
[2019-11-22] MEDS: NICOTINE 21 MG/24 HR PATCH.TD24 TD PRN (09:55)
[2019-11-22] MEDS ORDERED: DULOXETINE HCL 30 MG CAPSULE.DR PO SCH (10:00)
[2019-11-22] MEDS ORDERED: ASPIRIN 81 MG TABLET, ENT COATED PO SCH (10:00)
--- NOTE | 2019-11-22 12:16 | PDOC PROGRESS REPORT ---
Subjective Progress Note for:: 11/22/19 Reason For Visit: ACUTE LEFT ANTERIOR CEREBRAL DISTRIBUTION Physical Exam Vital Signs: Temp Pulse Resp BP Pulse Ox 97.5 F 82 18 113/46 L 98 11/22/19 08:34 11/22/19 08:34 11/22/19 08:34 11/22/19 08:34 11/22/19 08:34 Intake & Output 11/21/19 11/22/19 11/23/19 06:59 06:59 06:59 Intake Total 1411 Output Total 0 Balance 0 1411 Weight 73.2 kg 75 kg Results Laboratory Results: 11/21/19 04:59 11/22/19 04:50 11/22/19 04:50 Sodium 137.3 Potassium 3.8 Chloride 106 Carbon Dioxide 23 Anion Gap 8 BUN 8 Creatinine 0.52 Est GFR ( Amer) > 60 Glucose 116 H Calcium 8.6 Magnesium 2.1 Impressions: Head CT 11/20/19 17:18 IMPRESSION: Likely acute left posterior frontal infarction. EVIDENCE OF ACUTE STROKE: YES. LEFT TRE. Humerus X-Ray 11/20/19 18:40 IMPRESSION: No acute abnormality. Head MRI 11/21/19 00:00 IMPRESSION: 1. Restricted diffusion and hyperintense T2 and T2 FLAIR signal in the left occipital lobe suggestive of a late acute to subacute left BALL POINT SPLITTER infarct. Given the distribution of TRE and BALL POINT SPLITTER infarcts, embolic phenomena in is a consideration. Clinical correlation is recommended. 2. Late acute to subacute infarct in the left TRE distribution as described on recent CT. EVIDENCE OF ACUTE STROKE: Yes Carotid Doppler Study 11/21/19 16:15 IMPRESSION: 1. Less than 50% stenosis of the right internal carotid artery. 2. Greater than 70% stenosis of the left internal carotid artery. Marked elevated velocities. Technologist notified Dr. Burgos of the preliminary findings 11/21/2019 at 2122 hours Assessment and Plan - Diagnosis (1) Acute ischemic cerebrovascular accident (CVA) involving anterior cerebral artery territory Is this a current diagnosis for this admission?: Yes (2) Hypertension Qualifiers: Hypertension type: essential hypertension Qualified Code(s): I10 - Essential (primary) hypertension Is this a current diagnosis for this admission?: Yes (3) Hypercholesterolemia Is this a current diagnosis for this admission?: Yes (4) Vitamin D deficiency, unspecified Is this a current diagnosis for this admission?: Yes (5) Tobacco use disorder, continuous Is this a current diagnosis for this admission?: Yes (6) Leukocytosis Qualifiers: Leukocytosis type: unspecified Qualified Code(s): D72.829 - Elevated white blood cell count, unspecified Is this a current diagnosis for this admission?: Yes (7) Right hemiplegia Is this a current diagnosis for this admission?: Yes - Plan Summary Summary: Patient is admitted to [facility] per the stroke protocol where she will receive routine supportive and symptomatic cares. An MRI of the brain will be obtained. A bilateral carotid Doppler study will be obtained. An echocardiogram will be obtained. Patient will be started on clopidogrel 75 mg p.o. daily. Routine laboratory evaluations will be obtained per the stroke protocol. Patient will be continued on her usual home medications as appropriate once her medication list has been verified and reconciled. She will use morphine sulfate 2 to 4 mg IV every 2 hours as needed for pain and Ativan 1 mg IV every 4 hours as needed for anxiety. Smoking cessation is advised and counseled briefly at the bedside. 11/21/2019 The patient is extremely pleased that she has regained substantial function of her right arm. It is still weak. The CT scan showed stroke involving the left anterior cerebral artery distribution. This afternoon the radiologist called me and stated that it appeared that there was distribution of lesions in the posterior cerebral artery territory as well. This makes it very suspicious for thromboembolic stroke. The echocardiogram and carotid ultrasounds were ordered as routine and I change those to urgent. The tech will need to come in from home to perform the scans. I have put the patient on dual antiplatelet therapy. We will continue her subcutaneous heparin for DVT prophylaxis. The lipid panel that Dr. Burgos ordered shows increased total cholesterol and increased LDL. I have started atorvastatin daily. She does have a history of hypertension but her blood pressures are in the norm al range at this time. Will monitor as we do not want her pressures to be too low or too high. She is also being monitored on telemetry. She still smokes cigarettes. I explained how this could be devastating. It puts her at risk for another stroke as well as coronary artery disease and peripheral vascular disease along with renovascular disease. She is wearing a patch at this time and I will continue to strongly encourage tobacco cessation. Physical therapy has been ordered. She still has some deficits in her right arm and she will benefit from occupational therapy as well. We will continue her vitamin D supplement for her deficiency. In addition, her white blood cell count was up yesterday. This was likely an acute reaction to the stroke. It is normal today. We will continue to monitor her laboratory studies.
--- NOTE | 2019-11-22 12:58 | PDOC DISCHARGE SUMMARY ---
Impression - Admit/DC Date/PCP Admission Date/Primary Care Provider: 11/20/19 20:56 OLIVIA MATA NP Discharge Date: 11/22/19 - Discharge Diagnosis (1) Acute ischemic cerebrovascular accident (CVA) involving anterior cerebral artery territory Is this a current diagnosis for this admission?: Yes (2) Hypertension Is this a current diagnosis for this admission?: Yes (3) Hypercholesterolemia Is this a current diagnosis for this admission?: Yes (4) Vitamin D deficiency, unspecified Is this a current diagnosis for this admission?: Yes (5) Tobacco use disorder, continuous Is this a current diagnosis for this admission?: Yes (6) Leukocytosis Is this a current diagnosis for this admission?: Yes (7) Right hemiplegia Is this a current diagnosis for this admission?: Yes (8) Carotid stenosis, left Is this a current diagnosis for this admission?: Yes - Assessment Summary: Patient is admitted to [facility] per the stroke protocol where she will receive routine supportive and symptomatic cares. An MRI of the brain will be obtained. A bilateral carotid Doppler study will be obtained. An echocardiogram will be obtained. Patient will be started on clopidogrel 75 mg p.o. daily. Routine laboratory evaluations will be obtained per the stroke protocol. Patient will be continued on her usual home medications as appropriate once her medication list has been verified and reconciled. She will use morphine sulfate 2 to 4 mg IV every 2 hours as needed for pain and Ativan 1 mg IV every 4 hours as needed for anxiety. Smoking cessation is advised and counseled briefly at the bedside. 11/21/2019 The patient is extremely pleased that she has regained substantial function of her right arm. It is still weak. The CT scan showed stroke involving the left anterior cerebral artery distribution. This afternoon the radiologist called me and stated that it appeared that there was distribution of lesions in the posterior cerebral artery territory as well. This makes it very suspicious for thromboembolic stroke. The echocardiogram and carotid ultrasounds were ordered as routine and I change those to urgent. The tech will need to come in from home to perform the scans. I have put the patient on dual antiplatelet therapy. We will continue her subcutaneous heparin for DVT prophylaxis. The lipid panel that Dr. Burgos ordered shows increased total cholesterol and increased LDL. I have started atorvastatin daily. She does have a history of hypertension but her blood pressures are in the normal range at this time. Will monitor as we do not want her pressures to be too low or too high. She is also being monitored on telemetry. She still smokes cigarettes. I explained how this could be devastating. It puts her at risk for another stroke as well as coronary artery disease and peripheral vascular disease along with renovascular disease. She is wearing a patch at this time and I will continue to strongly encourage tobacco cessation. Physical therapy has been ordered. She still has some deficits in her right arm and she will benefit from occupational therapy as well. We will continue her vitamin D supplement for her deficiency. In addition, her white blood cell count was up yesterday. This was likely an acute reaction to the stroke. It is normal today. We will continue to monitor her laboratory studies. 11/22/2019 The patient has regained approximately 50% of her strength on the right. Gross sensation seems to be intact. Her blood pressure has been stable. She is extremely anxious regarding the stroke and carotid stenosis. I spoke with Dr. Dill, vascular surgery at [facility], and he instructed me to continue the antiplatelet therapy with Plavix and aspirin. I am going to continue the high-dose atorvastatin therapy. She is extremely anxious regarding the new diagnosis and potential treatment plans. - Additional Information Resuscitation Status: Full Code Discharge Diet: Cardiac Discharge Activity: Balance Activity w/Rest Referrals: OLIVIA MATA NP [Primary Care Provider] - Follow up as needed Prescriptions: Atorvastatin Calcium [Lipitor 80 mg Tablet] 80 mg PO QHS #30 tablet Clopidogrel Bisulfate [Plavix 75 mg Tablet] 75 mg PO DAILY 30 Days #30 tablet Home Medications: Albuterol Sulfate [Ventolin Hfa 8 gm Mdi] 2 puff IH Q6HP PRN 11/20/19 Duloxetine HCl [Cymbalta 30 mg Capsule.dr] 30 mg PO DAILY 11/20/19 Hydrocodone/Acetaminophen [[place] 10-325 mg Tablet] 1 tab PO Q4HP PRN MDD 2-3 DAILY 11/20/19 Lansoprazole 30 mg PO DAILY 11/20/19 Pregabalin [Lyrica 50 mg Capsule] 50 mg PO TID 11/20/19 Albuterol Sulfate [Ventolin Hfa 8 gm Mdi] 2 puff IH Q6HP PRN inhaler 11/22/19 Aspirin [Ecotrin 81 mg EC Tablet] 162 mg PO DAILY tabec 11/22/19 Atorvastatin Calcium [Lipitor 80 mg Tablet] 80 mg PO QHS #30 tablet 11/22/19 Clopidogrel Bisulfate [Plavix 75 mg Tablet] 75 mg PO DAILY 30 Days #30 tablet 11/22/19 Nicotine [Nicoderm 21 mg/24 Hr Transderm Patch] 1 each TD DAILYP PRN patch.td24 11/22/19 History of Present Illiness History of Present Illness: PAULA JOHNSON is a 54 year old female who presented to the emergency room with a 2-day history of numbness in her right arm. She admits waking on 11/18/2019 with numbness and weakness in her right (nondominant) upper extremity. Later that day she fell injuring her right shoulder and presented to urgent care where an x-ray was performed that revealed no evidence of fracture. The numbness in her right arm has been constant and moderately severe since she first noticed it on Saturday morning, the weakness in her right arm has been gradually improving. Her numbness has been accompanied by a constant dull left-sided headache and has been associated with an episode of transient left facial numbness, a "feeling of being off balance" as well as intermittent episodes of nausea. She denies other associated or accompanying signs and symptoms. She denies prior similar episodes. She has not identified any aggravating or ameliorating factors for her right arm numbness. In the emergency room she was found to have right upper extremity weakness and numbness on clinical evaluation and a CT scan that confirmed an acute left posterior frontal CVA. Patient was subsequently admitted to the stroke protocol on [facility] for further evaluation and treatment. Hospital Course Hospital Course: The patient had benign hospital course. Her symptoms are improving but a high- grade left carotid artery stenosis was identified. I spoke to vascular surgery at [facility]. She will continue high-dose statin therapy, dual antiplatelet therapy and she will follow-up with the surgeon within the next week for p ossible procedure in 2 weeks. Physical Exam Vital Signs: Temp Pulse Resp BP Pulse Ox 97.5 F 82 18 113/46 L 98 11/22/19 08:34 11/22/19 08:34 11/22/19 08:34 11/22/19 08:34 11/22/19 08:34 Intake & Output 11/21/19 11/22/19 11/23/19 06:59 06:59 06:59 Intake Total 1411 Output Total 0 Balance 0 1411 Weight 73.2 kg 75 kg General appearance: PRESENT: cooperative, mild distress - Her distress is concerned over the new diagnosis and severity of the left carotid stenosis, well-developed Head exam: PRESENT: atraumatic, normocephalic Respiratory exam: PRESENT: clear to auscultation josé luis, symmetrical, unlabored. ABSENT: crackles, prolonged expiratory phas, rales, rhonchi, tachypnea, wheezes Cardiovascular exam: PRESENT: RRR, +S1, +S2 GI/Abdominal exam: PRESENT: normal bowel sounds, soft. ABSENT: distended, firm, guarding, tenderness Rectal exam: PRESENT: deferred Neurological exam: PRESENT: CN II-XII grossly intact, motor sensory deficit - The right arm is still weak. 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 The patient has very weak abduction. She can raise her arm over her head but it is extremely limited. She has no cognitive deficits and gross sensation appears to have returned to the arm. Psychiatric exam: PRESENT: depressed, flat affect. ABSENT: agitated, anxious Results Laboratory Results: WBC 9.8 10^3/uL (4.0-10.5) 11/21/19 04:59 RBC 4.32 10^6/uL (3.72-5.28) 11/21/19 04:59 Hgb 12.0 g/dL (12.0-15.5) 11/21/19 04:59 Hct 34.9 % (36.0-47.0) L 11/21/19 04:59 MCV 81 fl (80-97) 11/21/19 04:59 MCH 27.7 pg (27.0-33.4) 11/21/19 04:59 MCHC 34.3 g/dL (32.0-36.0) 11/21/19 04:59 RDW 16.1 % (11.5-14.0) H 11/21/19 04:59 Plt Count 339 10^3/uL (150-450) 11/21/19 04:59 Lymph % (Auto) 22.4 % (13-45) 11/20/19 18:30 [place] % (Auto) 8.6 % (3-13) 11/20/19 18:30 Eos % (Auto) 0.6 % (0-6) 11/20/19 18:30 Baso % (Auto) 0.5 % (0-2) 11/20/19 18:30 Absolute Neuts (auto) 8.3 10^3/uL (1.7-8.2) H 11/20/19 18:30 Absolute Lymphs (auto) 2.7 10^3/uL (0.5-4.7) 11/20/19 18:30 Absolute Monos (auto) 1.1 10^3/uL (0.1-1.4) 11/20/19 18:30 Absolute Eos (auto) 0.1 10^3/uL (0.0-0.6) 11/20/19 18:30 Absolute Basos (auto) 0.1 10^3/uL (0.0-0.2) 11/20/19 18:30 Seg Neutrophils % 67.9 % (42-78) 11/20/19 18:30 PT 13.1 SEC (11.4-15.4) 11/20/19 18:30 INR 0.99 11/20/19 18:30 APTT 29.2 SEC (23.5-35.8) 11/20/19 18:30 Sodium 137.3 mmol/L (137-145) 11/22/19 04:50 Potassium 3.8 mmol/L (3.6-5.0) 11/22/19 04:50 Chloride 106 mmol/L (98-107) 11/22/19 04:50 Carbon Dioxide 23 mmol/L (22-30) 11/22/19 04:50 Anion Gap 8 (5-19) 11/22/19 04:50 BUN 8 mg/dL (7-20) 11/22/19 04:50 Creatinine 0.52 mg/dL (0.52-1.25) 11/22/19 04:50 Est GFR ( Amer) > 60 (>60) 11/22/19 04:50 Est GFR (MDRD) Non-Af > 60 (>60) 11/22/19 04:50 Glucose 116 mg/dL (75-110) H 11/22/19 04:50 Calcium 8.6 mg/dL (8.4-10.2) 11/22/19 04:50 Magnesium 2.1 mg/dL (1.6-2.3) 11/22/19 04:50 Total Bilirubin 0.5 mg/dL (0.2-1.3) 11/20/19 18:30 Direct Bilirubin 0.4 mg/dL (0.0-0.4) 11/20/19 18:30 Neonat Total Bilirubin Not Reportable 11/20/19 18:30 Neonat Direct Bilirubin Not Reportable 11/20/19 18:30 Neonat Indirect Bili Not Reportable 11/20/19 18:30 AST 28 U/L (14-36) 11/20/19 18:30 ALT 37 U/L (<35) H 11/20/19 18:30 Alkaline Phosphatase 99 U/L (38-126) 11/20/19 18:30 Total Protein 7.7 g/dL (6.3-8.2) 11/20/19 18:30 Albumin 3.9 g/dL (3.5-5.0) 11/20/19 18:30 Triglycerides 150 mg/dL (<150) 11/21/19 04:59 Cholesterol 155.32 mg/dL (0-200) 11/21/19 04:59 LDL Cholesterol Direct 102 mg/dL (<100) H 11/21/19 04:59 VLDL Cholesterol 30.0 mg/dL (10-31) 11/21/19 04:59 HDL Cholesterol 36 mg/dL (>40) L 11/21/19 04:59 Vitamin D 25-Hydroxy < 12.8 ng/mL (14.7-68.3) L 11/22/19 04:50 Urine Color GIULIANA 11/20/19 18:00 Urine Appearance SLIGHTLY-CLOUDY 11/20/19 18:00 Urine pH 5.0 (5.0-9.0) 11/20/19 18:00 Ur Specific [place] 1.024 11/20/19 18:00 Urine Protein 30 mg/dL (NEGATIVE) H 11/20/19 18:00 Urine Glucose (UA) NEGATIVE mg/dL (NEGATIVE) 11/20/19 18:00 Urine Ketones NEGATIVE mg/dL (NEGATIVE) 11/20/19 18:00 Urine Blood SMALL (NEGATIVE) H 11/20/19 18:00 Urine Nitrite (Reflex) NEGATIVE (NEGATIVE) 11/20/19 18:00 Urine Bilirubin NEGATIVE (NEGATIVE) 11/20/19 18:00 Urine Urobilinogen NEGATIVE mg/dL (<2.0) 11/20/19 18:00 Leukocyte Esterase Rfl NEGATIVE (NEGATIVE) 11/20/19 18:00 Urine RBC (Auto) 7 /HPF 11/20/19 18:00 Urine Bacteria (Auto) TRACE /HPF 11/20/19 18:00 Urine WBC (Reflex) 3 /HPF 11/20/19 18:00 Squamous Epi Cells Auto 7 /HPF 11/20/19 18:00 Calcium Oxalate Cr Auto RARE /HPF 11/20/19 18:00 Urine Mucus (Auto) MANY /LPF 11/20/19 18:00 Urine Ascorbic Acid NEGATIVE (NEGATIVE) 11/20/19 18:00 Impressions: Head CT 11/20/19 17:18 IMPRESSION: Likely acute left posterior frontal infarction. EVIDENCE OF ACUTE STROKE: YES. LEFT TRE. Humerus X-Ray 11/20/19 18:40 IMPRESSION: No acute abnormality. Head MRI 11/21/19 00:00 IMPRESSION: 1. Restricted diffusion and hyperintense T2 and T2 FLAIR signal in the left occipital lobe suggestive of a late acute to subacute left BARMAID infarct. Given the distribution of TRE and BARMAID infarcts, embolic phenomena in is a consideration. Clinical correlation is recommended. 2. Late acute to subacute infarct in the left TRE distribution as described on recent CT. EVIDENCE OF ACUTE STROKE: Yes Carotid Doppler Study 11/21/19 16:15 IMPRESSION: 1. Less than 50% stenosis of the right internal carotid artery. 2. Greater than 70% stenosis of the left internal carotid artery. Marked elevated velocities. Technologist notified Dr. Burgos of the preliminary findings 11/21/2019 at 2122 hours Plan Health Concerns: High-grade left carotid stenosis. Already with embolic stroke in the anterior and posterior cerebral artery distributions in a smoker with a history of hypertension. Plan of Treatment: As discussed with vascular surgery the patient will discharge. I have arranged for home health with home occupational therapy. She will follow-up with Dr. Dill [facility] vascular surgery. Goals: Treatment of left carotid stenosis either by endarterectomy, atherectomy or stenting. The patient must stop smoking. She will continue high-dose statin therapy and antiplatelet therapy and she will need to follow a cardiac diet. Time Spent: Greater than 30 Minutes Stroke Is this a Stroke Patient?: Yes Stroke Pt being discharged on Anti-thrombolytic therapy?: Yes Stroke Pt being discharged on Anti-coagulation therapy?: No Reason(s) for not prescribing Anti-coagulation therapy:: Not indicated Stroke Pt being discharged on Statins?: Yes Acute Heart Failure - Is this a Heart Failure Patient?: No
[2019-11-22 13:45] VITALS: BP 119/71
== END 2019-11-22 14:03 | disposition home or self-care (01) | DRG 65 ==
LOC: ER 17:04 → EH 20:56 → 3W 23:11
PROVIDERS: ADMIT Emergency Medicine; ATTEND Emergency Medicine
DX: I63.522 Cerebral infarction due to unspecified occlusion or stenosis of left anterior cerebral artery (principal); G81.91 Hemiplegia, unspecified affecting right dominant side; I65.22 Occlusion and stenosis of left carotid artery; I10 Essential (primary) hypertension; E55.9 Vitamin D deficiency, unspecified; R20.0 Anesthesia of skin; I63.322 Cerebral infarction due to thrombosis of left anterior cerebral artery; M19.90 Unspecified osteoarthritis, unspecified site; F17.290 Nicotine dependence, other tobacco product, uncomplicated; E78.00 Pure hypercholesterolemia, unspecified; F17.210 Nicotine dependence, cigarettes, uncomplicated; D72.829 Elevated white blood cell count, unspecified; Z82.3 Family history of stroke; Z82.49 Family history of ischemic heart disease and other diseases of the circulatory system; Z79.51 Long term (current) use of inhaled steroids; Z88.6 Allergy status to analgesic agent; Z88.0 Allergy status to penicillin; Z91.81 History of falling; Z79.899 Other long term (current) drug therapy
CPT/HCPCS: 36415; 70450; 70551; 80048; 80053; 80061; 81001; 82306; 82607; 82652; 83036; 83735; 84443; 85025; 85027; 85610; 85730; 86803; 86804; 93005; 93010; 93306; 93880; 99285; J1644; J2060; J3490; J7120

== ENCOUNTER → 2019-12-23 | Outpatient (CLI) | payer MEDICARE ==
[2019-12-23 10:45] LABS: ALBUMIN 3.8 g/dL (3.5-5.0); ALKALINE PHOSPHATASE 95 U/L (38-126); ASPARTATE AMINO TRANSFERASE 17 U/L (14-36); BILIRUBIN,DIRECT 0.3 mg/dL (0.0-0.4); BILIRUBIN,TOTAL 0.5 mg/dL (0.2-1.3); CHOLESTEROL 113.96 mg/dL (0-200); TRIGLYCERIDES 117 mg/dL (<150)
[2019-12-23 10:56] LABS: DIRECT LDL 62 mg/dL (<100)
== END ==
LOC: OD 09:24
PROVIDERS: ATTEND Nurse Practitioner
DX: I63.429 Cerebral infarction due to embolism of unspecified anterior cerebral artery (principal)
CPT/HCPCS: 36415; 80061; 80076

== ENCOUNTER 2020-05-06 12:14 | Emergency (ER) | payer MEDICARE ==
[2020-05-06] MEDS ORDERED: HYDROCODONE/ACETAMINOPHEN 5-325 MG TABLET PO ONE (13:00)
[2020-05-06] MEDS ORDERED: NORMAL SALINE 1000 ML 1,000 ML IV ONE ×2 (13:02→20:43)
[2020-05-06] MEDS ORDERED: CLINDAMYCIN 300 MG/D5W RTU 300 MG/50 ML RTUPB IV ONE (13:02)
--- NOTE | 2020-05-06 13:04 | ER Document Report ---
ED Medical Screen (RME) - General Chief Complaint: Facial Swelling Stated Complaint: FACIAL PAIN,SWELLING/POST SURGICAL Time Seen by Provider: 05/06/20 12:57 Primary Care Provider: OLIVIA MATA NP [Primary Care Provider] - Follow up as needed Notes: Patient is a 54-year-old female who presents emergency department with a chief complaint of left lower jaw swelling. Patient states that over the past couple days, she is noticed that the swelling to the area has gotten worse. Patient has 1 tooth to the area that is infected. She has not been able to go to the dentist. States that she has some body aches. Denies any fever. Patient has history of a CVA and a left carotid endarterectomy. Patient also has left ear pain. Exam: Heart rate 119. Very tender left lower jaw. Possible abscess. Edema noted to left external auditory canal. I have greeted and performed a rapid initial assessment of this patient. A comprehensive ED assessment and evaluation of the patient, analysis of test results and completion of medical decision making process will be conducted by an additional ED providers. TRAVEL OUTSIDE OF THE [place] IN LAST 30 DAYS: No - Related Data Allergies/Adverse Reactions: ibuprofen Allergy (Verified 11/20/19 19:27) Penicillins Allergy (Verified 11/20/19 19:27) Past Medical History - Past Medical History Cardiac Medical History: Reports: Hx Hypertension Denies: Hx Atrial Fibrillation, Hx Congestive Heart Failure, Hx Coronary Artery Disease, Hx DVT, Hx Heart Attack, Hx Hypercholesterolemia, Hx Pulmonary Embolism Pulmonary Medical History: Denies: Hx Asthma, Hx COPD Neurological Medical History: Denies: Hx Seizures Endocrine Medical History: Denies: Hx Diabetes Mellitus Type 1, Hx Diabetes Mellitus Type 2, Hx Hyperthyroidism, Hx Hypothyroidism GI Medical History: Denies: Hx Cirrhosis, Hx Crohn's Disease, Hx Gastroesophageal Reflux Disease, Hx Hepatitis, Hx Ulcerative Colitis Musculoskeltal Medical History: Reports Hx Arthritis - Chronic degenerative spinal disc disease with chronic back pain, Denies Hx Gout Skin Medical History: Denies Hx Eczema, Denies Hx Psoriasis Psychiatric Medical History: Reports: Hx Depression Infectious Medical History: Denies: Hx Hepatitis Past Surgical History: Reports: Hx Orthopedic Surgery - Back surgery Physical Exam - Vital signs Vitals: Pulse Resp BP Pulse Ox 119 H 18 126/65 H 97 05/06/20 12:20 05/06/20 12:20 05/06/20 12:20 05/06/20 12:20 Course - Vital Signs Vital signs: Temp Pulse Resp BP Pulse Ox 119 H 18 126/65 H 97 05/06/20 12:20 05/06/20 12:20 05/06/20 12:20 05/06/20 12:20 Doctor's Discharge - Discharge Referrals: OLIVIA MATA INFORMATICIST [Primary Care Provider] - Follow up as needed
[2020-05-06 13:37] LABS: ABSOLUTE LYMPHOCYTES (AUTO) 1.9 10^3/uL (0.5-4.7); ABSOLUTE MONOCYTES (AUTO) 0.7 10^3/uL (0.1-1.4); ABSOLUTE NEUT (AUTO) 6.2 10^3/uL (1.7-8.2); BASOPHILS % (AUTO) 0.5 % (0-2); EOSINOPHILS % (AUTO) 0.5 % (0-6); HEMATOCRIT 32.8 % (36.0-47.0); HEMOGLOBIN 10.3 g/dL (12.0-15.5); LYMPHOCYTES % (AUTO) 21.8 % (13-45); MEAN CORPUSCULAR HEMOGLOBIN 22.9 pg (27.0-33.4); MEAN CORPUSCULAR HGB CONC 31.3 g/dL (32.0-36.0); MEAN CORPUSCULAR VOLUME 73 fl (80-97); MONOCYTES % (AUTO) 7.4 % (3-13); PLATELET COUNT 798 10^3/uL (150-450); RED BLOOD COUNT 4.48 10^6/uL (3.72-5.28); RED CELL DISTRIBUTION WIDTH 18.9 % (11.5-14.0); SEGMENTED NEUTROPHILS % (AUTO) 69.8 % (42-78); TOTAL CELLS COUNTED % (AUTO) 100 %; WHITE BLOOD COUNT 8.9 10^3/uL (4.0-10.5)
[2020-05-06 13:49] LABS: ALBUMIN 3.5 g/dL (3.5-5.0); ALKALINE PHOSPHATASE 250 U/L (38-126); ANION GAP 11 (5-19); ASPARTATE AMINO TRANSFERASE 34 U/L (14-36); BILIRUBIN,DIRECT 0.1 mg/dL (0.0-0.4); BILIRUBIN,TOTAL 0.5 mg/dL (0.2-1.3); BLOOD UREA NITROGEN 12 mg/dL (7-20); CALCIUM 10.6 mg/dL (8.4-10.2); CARBON DIOXIDE 27 mmol/L (22-30); CHLORIDE 99 mmol/L (98-107); GLUCOSE 104 mg/dL (75-110); POTASSIUM 4.7 mmol/L (3.6-5.0); TOTAL PROTEIN 7.8 g/dL (6.3-8.2)
--- NOTE | 2020-05-06 14:13 | ER Document Report ---
ED ENT - General Chief Complaint: Facial Swelling Stated Complaint: FACIAL PAIN,SWELLING/POST SURGICAL Time Seen by Provider: 05/06/20 12:57 Primary Care Provider: OLIVIA MATA NP [Primary Care Provider] - Follow up as needed Mode of Arrival: Ambulatory Information source: Patient Notes: 54-year-old female past medical history significant for arthritis, hyperlipi demia, hypertension, CVA in October of this year presents to the emergency room complaining of persistent left-sided jaw swelling that she states she has had since she had a carotid endarterectomy on the left side 3 months ago. States she has followed up with the surgeon and was told the swelling is normal. She states is gotten progressively worse over the past month and is now more painful. Has been taking Tylenol without relief. Denies any fevers. Denies any trauma or injury. States she does have a bad tooth on that side has not followed up with a dentist. Is able to eat and drink without difficulty. Denies any swallowing difficulties. Has not followed up with her primary care physician. TRAVEL OUTSIDE OF THE [place] IN LAST 30 DAYS: No - Related Data Allergies/Adverse Reactions: ibuprofen Allergy (Verified 11/20/19 19:27) Penicillins Allergy (Verified 11/20/19 19:27) Past Medical History - General Information source: Patient - Social History Smoking Status: Never Smoker Frequency of alcohol use: None Family History: Reviewed & Not Pertinent - Past Medical History Cardiac Medical History: Reports: Hx Hypertension Denies: Hx Atrial Fibrillation, Hx Congestive Heart Failure, Hx Coronary Artery Disease, Hx DVT, Hx Heart Attack, Hx Hypercholesterolemia, Hx Pulmonary Embolism Pulmonary Medical History: Denies: Hx Asthma, Hx COPD Neurological Medical History: Reports: Hx Cerebrovascular Accident. Denies: Hx Seizures Endocrine Medical History: Denies: Hx Diabetes Mellitus Type 1, Hx Diabetes Mellitus Type 2, Hx Hyperthyroidism, Hx Hypothyroidism GI Medical History: Denies: Hx Cirrhosis, Hx Crohn's Disease, Hx Gastroesophageal Reflux Disease, Hx Hepatitis, Hx Ulcerative Colitis Musculoskeletal Medical History: Reports Hx Arthritis - Chronic degenerative spinal disc disease with chronic back pain, Denies Hx Gout Skin Medical History: Denies Hx Eczema, Denies Hx Psoriasis Psychiatric Medical History: Reports: Hx Depression Infectious Medical History: Denies: Hx Hepatitis Past Surgical History: Reports: Hx Orthopedic Surgery - Back surgery - Immunizations Hx Pneumococcal Vaccination: 07/31/19 Review of Systems - Review of Systems Constitutional: No symptoms reported EENT: Other - Sided jaw swelling Cardiovascular: No symptoms reported Respiratory: No symptoms reported Musculoskeletal: No symptoms reported Skin: No symptoms reported Neurological/Psychological: No symptoms reported -: Yes All other systems reviewed and negative Physical Exam - Vital signs Vitals: Pulse Resp BP Pulse Ox 119 H 18 126/65 H 97 05/06/20 12:20 05/06/20 12:20 05/06/20 12:20 05/06/20 12:20 - General General appearance: Alert In distress: Moderate - HEENT Head: Normocephalic, Atraumatic Eyes: Normal Pupils: PERRL Ears: Normal External canal: Normal Tympanic membrane: Normal Teeth diagram: 1 - only tooth remaining with erythema and swelling around tooth and gum with nonfluctuant abscess that is palpated on the inner aspect of tooth #13 Pharynx: Normal Neck: Other - Well healed left carotid endarterectomy scar without erythema or swelling noted. Mild ecchymosis noted.. No: Lymphadenopathy, Meningismus Notes: Moderate swelling noted to the left lateral jaw it is tender to palpation. It is not warm to touch. - Respiratory Respiratory status: No respiratory distress Chest status: Nontender Breath sounds: Normal Chest palpation: Normal - Cardiovascular Rhythm: Tachycardia Heart sounds: Normal auscultation Murmur: No Friction rub: No Gallop: None auscultated - Neurological Neuro grossly intact: Yes Cognition: Normal Orientation: AAOx4 Esteban Coma Scale Eye Opening: Spontaneous Felt Coma Scale Verbal: Oriented Felt Coma Scale Motor: Obeys Commands Esteban Coma Scale Total: 15 Speech: Normal Motor strength normal: LUE, RUE, LLE, RLE Sensory: Normal - Skin Skin Temperature: Warm Skin Moisture: Dry Skin Color: Normal Course - Re-evaluation Re-evalutation: 05/06/20 14:57 With moderate left jaw swelling. Tender but not warm to touch. There is an obvious nonfluctuant dental abscess that is noted. There is no tenderness or swelling noted over the left carotid region. Well-healed surgical scar from the left carotid endarterectomy normal bruising noted. Will evaluate with labs and CT to rule out abscess. 05/06/20 14:58 05/06/20 15:28 Received call from radiology for the radiologist who notified me that there were abnormalities on her CT showing intracranial metastatic disease. Swelling to the left jaw most likely related to a dental abscess. Patient will need MRI brain with IV contrast. Discussed with patient about some abnormal findings on her CT scanning that she would need an MRI. Did not go into detail with findings until MRI is resulted. Requesting additional pain medication. Also states she is claustrophobic. Will premedicate prior to MRI. Medications ordered. 05/06/20 19:16 Reviewed MRI findings with the patient and family. Aware of need for transfer. Patient and family were counseled on risks and benefits of being transferred to another facility. Patient is agreeable to the transfer. IV Decadron ordered. Case was staffed by ED attending Dr. Grewal. All findings were discussed with Dr. Grewal at length. 05/06/20 20:49 And is aware that we are still attempting to arrange transfer. Patient currently resting comfortably. Vital signs remained stable. 05/06/20 20:50 05/06/20 20:58 Discussed case with neuro[facility] ED [facility] case was also discussed with the ED attending Dr. Mendiola who is also agreeable to accept patient on an ED to ED transfer. All calls were arranged through the transfer center for [facility] in [place]. Patient and family were updated on the status of transfer and are continuing to agree to transfer. 05/06/20 21:49 Patient is currently resting. Continues to have intermittent nausea which has been medicated with anti-medics. Aware that transportation should be here in approximately 30 minutes to transfer [facility]. All questions were answered. Stable to be discharged. 05/06/20 22:40 Notified by nursing staff that patient is complaining of generalized itching. Patient she states is a chronic condition. States she normally takes Benadryl. Patient is requesting Benadryl at this time. Medications were ordered. Vital signs remained stable. Aware awaiting EMS transport. 05/07/20 00:18 Patient is resting comfortably states the Benadryl has alleviated her itching. EMS here [facility]. Stable to be transferred. - Vital Signs Vital signs: Temp Pulse Resp BP Pulse Ox 97.9 F 119 H 27 H 106/54 L 94 05/06/20 19:41 05/06/20 12:20 05/06/20 22:01 05/06/20 22:01 05/06/20 22:02 - Laboratory Result Diagrams: 05/06/20 13:10 05/06/20 13:10 Laboratory results interpreted by me: 05/06/20 05/06/20 13:10 13:10 Hgb 10.3 L Hct 32.8 L MCV 73 L MCH 22.9 L MCHC 31.3 L RDW 18.9 H Plt Count 798 H Sodium 136.6 L Calcium 10.6 H Alkaline Phosphatase 250 H - Diagnostic Test Radiology reviewed: Reports reviewed - Consults [facility] Time consulted: 19:16 - Do not have neurosurgery available. Reason for consultation: 05/06/20 20:45 Attempts to transfer but facility does not have neurosurgery. [facility] transfer [facility] Time consulted: 19:18 - No beds available. Reason for consultation: 05/06/20 20:46 Spoke with transfer center and attempt to transfer patient for neurosurgery services. Was told by transfer center that they do not have any beds available. [facility] Time consulted: 19:27 Reason for consultation: 05/06/20 20:47 Call transfer center to in attempt to transfer patient for neurosurgery services. Was told no beds available. Was able to speak with Faith Ewing nurse practitioner for neuro surgery services who did make recommendations that if patient should start to seize load up with Keppra. Can do 4 mg of IV Decadron every 6 hours. Continue to attempt other facilities for transfers. [facility] transfer center Time consulted: 20:02 - Working on transfer. Reason for consultation: 05/06/20 20:48 Call transfer center for an attempt to transfer patient for neurosurgery serv ices which we do not have available. Request face sheet and all allergy studies to be sent to them, will call back if able to accept transfer. 05/06/20 20:58 Patient was accepted in transfer by on-call neurosurgeon Lashell Lipscomb as well as ED physician Dr. Mendiola. [facility] will arrange transfer transportation 05/06/20 21:24 Critical Care Note - Critical Care Note Total time excluding time spent on procedures (mins): 60 Comments: Critical care time spent obtaining history from patient or surrogate, di scussions with consultants, development of treatment plan with patient or surrogate, evaluation of patient's response to treatment, examination of patient, ordering and performing treatments and interventions, ordering and review of laboratory studies, re-evaluation of patient's condition, ordering and review of radiographic studies and review of old charts Discharge - Discharge Clinical Impression: Dental abscess, Brain metastases, Brain herniation Condition: Fair Disposition: [place] Referrals: OLIVIA MATA NP [Primary Care Provider] - Follow up as needed
[2020-05-06] MEDS ORDERED: MORPHINE SULFATE 10 MG/ML INJ IV ONE ×2 (15:21→19:31)
--- NOTE | 2020-05-06 15:21 | RADIOLOGY REPORT (SQ) ---
EXAM DESCRIPTION: CT FACIAL AREA WITH IMAGES COMPLETED DATE/TIME: 05/06/2020 3:01 pm REASON FOR STUDY: eval abcess COMPARISON: None. TECHNIQUE: Post contrast images through the facial bones and orbits windowed for bone and soft tissu e. Additional coronal and sagittal reconstructed images reviewed. All images stored on PACS. All CT scanners at this facility use dose modulation, iterative reconstruction, and/or weight based d osing when appropriate to reduce radiation dose to as low as reasonably achievable (ALARA). [facility]: Dose Right [facility]: CareDose [facility]: Dose Right [facility]: Teradose 4D [facility]: Yasound CONTRAST TYPE AND DOSE: contrast/concentration: Isovue 350.00 mmol/ml; Total Contrast Delivered: 50. 0 ml; Total Saline Delivered: 50.0 ml RENAL FUNCTION: BUN 12, creatinine 0.66 RADIATION DOSE: CT Rad equipment meets quality standard of care and radiation dose reduction techniq ues were employed. CTDIvol: 30.4 mGy. DLP: 589 mGy-cm. . LIMITATIONS: None. FINDINGS: FACIAL BONES: No fracture or bone lesion. ORBITS: Intact. No fracture. Symmetric intact globes and retroorbital soft tissues. PARANASAL SINUSES: Clear. No significant mucosal thickening, mass or fluid. No nasal polyps. Maxilla ry sinus outlets are patent. SOFT TISSUES: No mass or edema. No abnormal enhancement. INFERIOR BRAIN: Enhancing nodule in the left frontal lobe with surrounding vasogenic edema. This adri sures 1.5 cm in greatest diameter. There is a 9.4 mm lesion probably in the high right temporal lobe with surrounding vasogenic edema. Metastatic disease is suspected. Possible intraventricular enhan cing lesion as well demonstrated on series 3, image 69. Correlation with MRI brain is recommended fo r further assessment. OTHER: No other significant finding. IMPRESSION: Enhancing intracranial lesions with diffuse surrounding edema. Findings are suspicious for metastatic disease. Recommend MRI with contrast for further assessment on non emergent basis. No evidence of abscess formation or cellulitis. TECHNICAL DOCUMENTATION: JOB ID: [id number] Quality ID # [id number]: Final reports with documentation of one or more dose reduction techniques (e.g., Au tomated exposure control, adjustment of the mA and/or kV according to patient size, use of iterative reconstruction technique) 2010 [employer]- All Rights Reserved Reading location - IP/workstation name: [email or web address]
[2020-05-06] MEDS ORDERED: LORAZEPAM INJ 2 MG/1 ML VIAL IV ONE (16:01)
--- NOTE | 2020-05-06 18:27 | RADIOLOGY REPORT (SQ) ---
EXAM DESCRIPTION: MRI HEAD COMBO IMAGES COMPLETED DATE/TIME: 05/06/2020 4:31 pm REASON FOR STUDY: brain metastases. Jaw swelling. CVA in October 2019. History of mass. Hyperte nsion. Weakness. COMPARISON: MRI brain, 11/21/2019. Maxillofacial CT, with contrast, same date. TECHNIQUE: Multiplanar imaging includes noncontrasted T1, T2, FLAIR, diffusion with ADC map and post gadolinium contrast T1 sequences. Images stored on PACS. CONTRAST TYPE AND DOSE: 10 mL ProHance RENAL FUNCTION: Not indicated. ACR Type II contrast agent associated with few, if any, unconfounded cases of NSF LIMITATIONS: None. FINDINGS: ANATOMY: No anomalies. Normal vascular flow voids. Pituitary fossa normal. CSF SPACES: Normal in size and contour. No hemorrhage. CEREBRUM: Interval development of a hemorrhagic mass in the posterior left occipital lobe measuring 3 .5 x 2.3 cm with surrounding vasogenic edema. This demonstrates no significant enhancement on postco ntrast images and may represent hemorrhage within an area of encephalomalacia/gliosis from prior infa rct. Since the previous examination, there has been development of multiple enhancing masses scatter ed throughout the parenchyma and hays-white matter junction, with surrounding vasogenic edema with th e larger lesions. The largest lesion is seen in the left frontal lobe measuring 1.9 x 1.6 cm with si gnificant mass effect and right to left midline shift approximately 9 mm. There is mild effacement o f the left frontal lobe. Similar enhancing lesion in the deep white matter of the right posterior pa rietal lobe measures 9 mm also with surrounding edema. Mild mass effect with no significant midline shift. No transtentorial herniation. Additional enhancing lesions are as follows: In the left high parietal lobe at the hays-white junction measuring 5 mm (image 174 of 216, in the left parietal whit e matter with surrounding edema measures 6 mm (image 140). Left lateral ventricle intraventricular m ass measures 0.8 cm (image 131), in the right frontal lobe at the hays-white junction a 4 mm lesion, and in the right posterior occipital lobe medially days 6 mm lesion and a 5 mm lesion (image 119), ad ditional right occipital lobe lesions measuring 7 mm and 5 mm (image 91). POSTERIOR FOSSA: No signal alteration. No hemorrhage. No edema, masses, or mass effect. Internal colt tory canals, cerebellopontine angles, mastoids normal. Enhancing lesion in the right cerebral hemisp here measures 4 mm (image 27) . No leptomeningeal enhancement. DIFFUSION IMAGING: Negative for acute or subacute infarction. ORBITS: No masses. Globes normal. PARANASAL SINUSES: No fluid levels. Mucosa normal. OTHER: No other significant finding. IMPRESSION: 1. Interval development of numerous intracranial enhancing lesions, highly suggestive of multiple met astases. 2. Interval development of hyperintense T1 intensity with associated blooming artifact in the left oc cipital lobe, probably representing hemorrhagic conversion of the previous infarct. Hemorrhage withi n an underlying mass is also a consideration. 3. Subfalcine herniation secondary to vasogenic edema and mass effect from a left frontal lobe lesion . No evidence of transtentorial herniation or hydrocephalus. EVIDENCE OF ACUTE STROKE: NO. COMMENT: Findings were discussed with Cody Parekh on 05/06/2020 at 1815 hours. TECHNICAL DOCUMENTATION: JOB ID: [id number] 2010 [employer]- All Rights Reserved Reading location - IP/workstation name: [email or web address]
[2020-05-06] MEDS ORDERED: DEXAMETHASONE SOD PHOS INJ 10 MG/1 ML VIAL IV ONE (18:48)
[2020-05-06] MEDS ORDERED: METOCLOPRAMIDE HCL INJ/PF 10 MG/2 ML SDV IV ONE (19:56)
[2020-05-06] MEDS ORDERED: ONDANSETRON HCL INJ/PF 4 MG/2 ML SDV IV ONE (21:25)
[2020-05-06 22:15] VITALS: BP 106/54
[2020-05-06] MEDS ORDERED: DIPHENHYDRAMINE HCL 50 MG/ML VIAL IV ONE (22:40)
== END 2020-05-07 00:25 | disposition short-term general hospital (02) ==
LOC: ER 12:14
DX: K04.7 Periapical abscess without sinus (principal); C79.31 Secondary malignant neoplasm of brain; G93.5 Compression of brain; R11.0 Nausea; L29.9 Pruritus, unspecified; F40.240 Claustrophobia; I10 Essential (primary) hypertension; Z98.890 Other specified postprocedural states; Z88.8 Allergy status to other drugs, medicaments and biological substances; Z88.0 Allergy status to penicillin
CPT/HCPCS: 96376; 99291; 96361; 96375; 96365; 36415; 87040; 85025; 80053; 70553; 70487; A9576; J3490; J1200; J2765; J2270; J2060; J2405; J7030; J1100; A9270

== ENCOUNTER 2020-05-27 15:12 | Emergency (ER) | payer MEDICARE ==
--- NOTE | 2020-05-27 15:30 | ER Document Report ---
ED Medical Screen (RME) - General Chief Complaint: Breathing Difficulty Stated Complaint: DIFFICULTY BREATHING Time Seen by Provider: 05/27/20 15:15 Primary Care Provider: OLIVIA MATA NP [Primary Care Provider] - Follow up as needed Mode of Arrival: Wheelchair Information source: Patient, Relative Notes: 54-year-old female presented to ED for complaint of shortness of breath and cough. She states she was diagnosed with lung cancer 2 weeks ago. She is having radiation treatments her last one was 20 minutes before coming to the emergency room. She states she goes to Dr. Delvalle and oncology. She states she came in here about 2 weeks ago because she was sick and was told she had lung cancer breast cancer and brain cancer. She states they have not determined yet was the primary. She has had a stroke in the past. She is alert oriented respirations regular at this time. She is not coughing at this time. She is with her . I have requested that charge nurse put her back promptly as she is on radiation treatment. I have greeted and performed a rapid initial assessment of this patient. A comprehensive ED assessment and evaluation of the patient, analysis of test results and completion of medical decision making process will be conducted by an additional ED providers. TRAVEL OUTSIDE OF THE [place] IN LAST 30 DAYS: No - Related Data Allergies/Adverse Reactions: ibuprofen Allergy (Verified 11/20/19 19:27) Penicillins Allergy (Verified 11/20/19 19:27) Past Medical History - Past Medical History Cardiac Medical History: Reports: Hx Hypertension Denies: Hx Atrial Fibrillation, Hx Congestive Heart Failure, Hx Coronary Artery Disease, Hx DVT, Hx Heart Attack, Hx Hypercholesterolemia, Hx Pulmonary Embolism Pulmonary Medical History: Denies: Hx Asthma, Hx COPD Neurological Medical History: Reports: Hx Cerebrovascular Accident. Denies: Hx Seizures Endocrine Medical History: Denies: Hx Diabetes Mellitus Type 1, Hx Diabetes Mellitus Type 2, Hx Hyperthyroidism, Hx Hypothyroidism GI Medical History: Denies: Hx Cirrhosis, Hx Crohn's Disease, Hx Gastroesophageal Reflux Disease, Hx Hepatitis, Hx Ulcerative Colitis Musculoskeltal Medical History: Reports Hx Arthritis - Chronic degenerative spinal disc disease with chronic back pain, Denies Hx Gout Skin Medical History: Denies Hx Eczema, Denies Hx Psoriasis Psychiatric Medical History: Reports: Hx Depression Infectious Medical History: Denies: Hx Hepatitis Past Surgical History: Reports: Hx Orthopedic Surgery - Back surgery Doctor's Discharge - Discharge Referrals: OLIVIA MATA INTERNAL INVESTIGATOR [Primary Care Provider] - Follow up as needed
[2020-05-27 16:42] LABS: ABSOLUTE MONOCYTES (AUTO) 0.5 10^3/uL (0.1-1.4); ABSOLUTE NEUT (AUTO) 12.3 10^3/uL (1.7-8.2); BASOPHILS % (AUTO) 0.3 % (0-2); HEMATOCRIT 35.5 % (36.0-47.0); HEMOGLOBIN 11.7 g/dL (12.0-15.5); MEAN CORPUSCULAR VOLUME 73 fl (80-97); MONOCYTES % (AUTO) 3.4 % (3-13); PLATELET COUNT 429 10^3/uL (150-450); RED BLOOD COUNT 4.88 10^6/uL (3.72-5.28); RED CELL DISTRIBUTION WIDTH 21.3 % (11.5-14.0); SEGMENTED NEUTROPHILS % (AUTO) 89.3 % (42-78); TOTAL CELLS COUNTED % (AUTO) 100 %; WHITE BLOOD COUNT 13.8 10^3/uL (4.0-10.5)
--- NOTE | 2020-05-27 16:44 | RADIOLOGY REPORT (SQ) ---
EXAM DESCRIPTION: CHEST 2 VIEWS IMAGES COMPLETED DATE/TIME: 05/27/2020 4:16 pm REASON FOR STUDY: short of breath xrt for lung ca COMPARISON: PA and lateral views of the chest from 11/19/2019. EXAM PARAMETERS: NUMBER OF VIEWS: Two views. TECHNIQUE: PA and lateral views of the chest were obtained. RADIATION DOSE: NA LIMITATIONS: None. FINDINGS: LUNGS AND PLEURA: Masslike opacity that extends from the left hilum into the left lower lo be. There is no sizable pleural effusion or pneumothorax. MEDIASTINUM AND HILAR STRUCTURES: No mediastinal or hilar contour abnormality. HEART AND VASCULAR STRUCTURES: The cardiac silhouette and pulmonary vasculature are within normal yoo its. BONES: No acute findings. HARDWARE: None in the chest. OTHER: No other finding. IMPRESSION: Masslike opacity that extends from the left hilum into the left lower lobe. Consider co rrelation with a contrast-enhanced CT. TECHNICAL DOCUMENTATION: JOB ID: [id number] 2010 [employer]- All Rights Reserved Reading location - IP/workstation name: [email or web address]
[2020-05-27 17:02] LABS: ALKALINE PHOSPHATASE 186 U/L (38-126); ANION GAP 11 (5-19); ASPARTATE AMINO TRANSFERASE 57 U/L (14-36); BILIRUBIN,DIRECT 0.4 mg/dL (0.0-0.4); BILIRUBIN,TOTAL 0.9 mg/dL (0.2-1.3); BLOOD UREA NITROGEN 24 mg/dL (7-20); CALCIUM 9.4 mg/dL (8.4-10.2); CARBON DIOXIDE 27 mmol/L (22-30); CHLORIDE 95 mmol/L (98-107); GLUCOSE 253 mg/dL (75-110); POTASSIUM 4.5 mmol/L (3.6-5.0); TOTAL PROTEIN 6.3 g/dL (6.3-8.2)
[2020-05-27] MEDS ORDERED: METHYLPREDNISOLONE INJ 125 MG/2 ML SDV IV ONE (17:27)
[2020-05-27] MEDS ORDERED: IPRATROPIUM/ALBUTEROL 0.5-2.5 MG/3 ML AMPUL NEB ONE (17:27)
[2020-05-27] MEDS ORDERED: OXYCODONE-ACETAMINOPHEN 5-325 MG TABLET PO ONE (17:35)
--- NOTE | 2020-05-27 17:37 | ER Document Report ---
ED General - General Chief Complaint: Shortness Of Breath Stated Complaint: DIFFICULTY BREATHING Time Seen by Provider: 05/27/20 15:15 Primary Care Provider: OLIVIA MATA NP [Primary Care Provider] - Follow up as needed Mode of Arrival: Wheelchair TRAVEL OUTSIDE OF THE [place].S. IN LAST 30 DAYS: No - HPI Notes: Chief complaint: Shortness of breath and wheezing HPI: 54-year-old female recently diagnosed with lung CA currently receiving XRT was sent here by her radiation oncologist because of increasing shortness of breath and intermittent wheezing. She denies fever, sputum production or hemoptysis. She has pleuritic pain in her back which she says is been present now for several weeks. She is taking Percocet for this. She quit smoking less than 1 year ago. She has had intermittent episodes of wheezing in the past and presumably has COPD. She has a metered-dose inhaler that she uses occasionally at home. She is allergic to ibuprofen and penicillin. She denies any known history of DVT or PE. She says she has had a "clot" in her left carotid artery and was previously treated with some type of an anticoagulant although she is no longer on the medication. She has had a past ischemic stroke. - Related Data Allergies/Adverse Reactions: ibuprofen Allergy (Verified 11/20/19 19:27) Penicillins Allergy (Verified 11/20/19 19:27) Past Medical History - General Information source: Patient, Relative, [facility] Records - Social History Smoking Status: Never Smoker Frequency of alcohol use: None Drug Abuse: None Family History: Reviewed & Not Pertinent - Past Medical History Cardiac Medical History: Reports: Hx Hypertension Denies: Hx Atrial Fibrillation, Hx Congestive Heart Failure, Hx Coronary Artery Disease, Hx DVT, Hx Heart Attack, Hx Hypercholesterolemia, Hx Pulmonary Embolism Pulmonary Medical History: Reports: Hx COPD Denies: Hx Asthma Neurological Medical History: Reports: Hx Cerebrovascular Accident. Denies: Hx Seizures Endocrine Medical History: Denies: Hx Diabetes Mellitus Type 1, Hx Diabetes Mellitus Type 2, Hx Hyperthyroidism, Hx Hypothyroidism GI Medical History: Denies: Hx Cirrhosis, Hx Crohn's Disease, Hx Gastroesophageal Reflux Disease, Hx Hepatitis, Hx Ulcerative Colitis Musculoskeletal Medical History: Denies Hx Arthritis - Chronic degenerative spinal disc disease with chronic back pain, Denies Hx Gout Skin Medical History: Denies Hx Eczema, Denies Hx Psoriasis Psychiatric Medical History: Reports: Hx Depression Infectious Medical History: Denies: Hx Hepatitis Past Surgical History: Reports: Hx Orthopedic Surgery - Back surgery - Immunizations Hx Pneumococcal Vaccination: 07/31/19 Review of Systems - Review of Systems Notes: Constitutional: Negative for fever. HENT: Negative for sore throat. Eyes: Negative for visual changes. Cardiovascular: Negative for chest pain. Respiratory: As per HPI. Gastrointestinal: Negative for abdominal pain, vomiting or diarrhea. Genitourinary: Negative for dysuria. Musculoskeletal: As per HPI. Skin: Negative for rash. Neurological: Negative for headaches, weakness or numbness. 10 point ROS negative except as marked above and in HPI. Physical Exam - Vital signs Vitals: Temp Pulse Resp BP Pulse Ox 98.1 F 113 H 20 100/68 95 05/27/20 15:16 05/27/20 15:16 05/27/20 15:16 05/27/20 15:16 05/27/20 15:16 - Notes Notes: GENERAL: Relatively frail female approximately stated age appearing in no acute distress. SKIN: Good turgor no rashes. HEAD: Normocephalic atraumatic. EYES: PERRLA. EOMI. Conjunctivae and sclerae clear. EARS: CANALS AND TMS CLEAR. NOSE: CLEAR. MOUTH: Moist mucosa. Good dentition. No stridor or edema. No drooling. NECK: Healed left side carotid endarterectomy scar present. Supple. No masses or thyromegaly. No adenopathy. Carotids 2+ without bruits. No JVD. BACK: Symmetrical without tenderness. CHEST: Respirations unlabored. Breath sounds are symmetrical with scattered faint wheezes. HEART: Tachycardic. Regular rhythm. No murmur gallop or rub. ABDOMEN: Soft nontender without masses, organomegaly or rebound. Bowel sounds normally active. No bruits. GENITALIA: Deferred. EXTREMITIES: No edema. No calf tenderness. Cap refill less than 1.5 seconds. Dorsalis pedis and posterior tibial pulses 3+ and symmetrical. NEUROLOGICAL: GCS 15. Alert and oriented x3. Normal gait. Fluent speech. Cranial nerves II through XII intact. Sensorimotor and cerebellar normal. Normal tone. PSYCHIATRIC: Appropriate affect. Course - Re-evaluation Re-evalutation: 05/27/20 19:11 Patient is being treated currently for a left lung mass/lung cancer and came in the day with increasing shortness of breath. CT was obtained demonstrated the mass but there was no evidence of PE. Oxygenation is stable on room air. She has some wheezes when she came in and improved markedly after she got IV steroids and a DuoNeb treatment. I think she has acute exacerbation of COPD superimposed on her lung CA. She wants to go home and I think this is appropriate. I will place her on some doxycycline and ask her to use her metered-dose inhaler every 4 hours as needed. She can return here as needed for new or worsening symptoms otherwise follow-up with a primary care physician. Findings, clinical impression and plan of treatment have been discussed with patient/family. Understanding of current findings and recommendations has been acknowledged by them and there is agreement regarding disposition and follow-up. - Vital Signs Vital signs: Temp Pulse Resp BP Pulse Ox 98.0 F 100 30 H 115/61 95 05/27/20 15:45 05/27/20 15:45 05/27/20 15:45 05/27/20 15:45 05/27/20 15:45 - Laboratory Result Diagrams: 05/27/20 16:10 05/27/20 16:10 Laboratory results interpreted by me: 05/27/20 05/27/20 16:10 16:10 WBC 13.8 H Hgb 11.7 L Hct 35.5 L MCV 73 L MCH 24.0 L RDW 21.3 H Lymph % (Auto) 7.0 L Absolute Neuts (auto) 12.3 H Seg Neutrophils % 89.3 H Sodium 132.6 L Chloride 95 L BUN 24 H Creatinine 0.45 L Glucose 253 H AST 57 H ALT 137 H Alkaline Phosphatase 186 H Albumin 3.0 L Discharge - Discharge Clinical Impression: Acute exacerbation COPD, Lung CA Condition: Stable Disposition: HOME, SELF-CARE Additional Instructions: Use your metered-dose inhaler 2 puffs every 4 hours. Remain on your other regular medications. We are adding an antibiotic (doxycycline) for the next 10 days. Follow-up with your primary physician or oncologist within the next 3 days. Return here as needed for new or worsening symptoms: Worsening shortness of breath Pain that is worsening or unimproved Uncontrolled vomiting High fever or shaking chills Overall worsening Prescriptions: Doxycycline Monohydrate 100 mg PO BID #20 capsule Oxycodone HCl/Acetaminophen [Percocet 5-325 mg Tablet] 1 - 2 tab PO Q4H PRN 3 Days #12 tablet PRN Reason: Referrals: OLIVIA MATA, [employer] [Primary Care Provider] - Follow up as needed
[2020-05-27 17:43] LABS: INTERNATIONAL RATION (INR) 0.97; PROTHROMBIN TIME 13.1 SEC (11.4-15.4)
[2020-05-27] MEDS ORDERED: FAMOTIDINE INJ/PF 20 MG/2 ML SDV IV ONE (18:02)
--- NOTE | 2020-05-27 18:36 | RADIOLOGY REPORT (SQ) ---
EXAM DESCRIPTION: CTA CHEST IMAGES COMPLETED DATE/TIME: 05/27/2020 6:03 pm REASON FOR STUDY: CP, SOB, CA lung: r/o PE COMPARISON: Chest x-ray 05/27/2020 TECHNIQUE: CT scan of the chest performed using helical scanning technique with dynamic intravenous contrast injection. Images reviewed with lung, soft tissue and bone windows. Reconstructed coronal and sagittal MPR images reviewed. Additional 3 dimensional post-processing performed to develop Maximal Intensity Projection images (GA P). All images stored on PACS. All CT scanners at this facility use dose modulation, iterative reconstruction, and/or weight based d osing when appropriate to reduce radiation dose to as low as reasonably achievable (ALARA). [facility]: Dose Right [facility]: CareDose [facility]: Dose Right [facility]: Teradose 4D [facility]: QuickoLabs CONTRAST TYPE AND DOSE: contrast/concentration: Isovue 350.00 mmol/ml; Total Contrast Delivered: 51. 0 ml; Total Saline Delivered: 76.0 ml Contrast bolus adequate for pulmonary arteries and aorta. RENAL FUNCTION: BUN 24 creatinine 0.45 RADIATION DOSE: CT Rad equipment meets quality standard of care and radiation dose reduction techniq ues were employed. CTDIvol: 9.9 - 14.3 mGy. DLP: 500 mGy-cm. . LIMITATIONS: None. FINDINGS: LUNGS: There is a 10 mm nodule in the right apex. Slightly lower is a 9 mm nodule. Th ere is an 86 x 82 mm mass in the left lower lobe That is confluent with the left hilum. AORTA AND GREAT VESSELS: No aneurysm. No dissection. HEART: No pericardial effusion. No significant coronary artery calcifications. PULMONARY ARTERIES: No emboli in the main pulmonary arteries or the segmental branches. The left pul monary artery is almost completely occluded by a left hilar/ parenchymal mass. HILAR AND MEDIASTINAL STRUCTURES: There is a left hilar mass that is confluent with the larger parenc hymal mass. Matted subcarinal adenopathy is present. HARDWARE: None in the chest. UPPER ABDOMEN: Large right adrenal mass that is heterogeneous. Measures 43 mm in largest diameter. THYROID AND OTHER SOFT TISSUES: 3 cm right breast mass. 15 mm left breast mass. Normal thyroid. BONES: No acute or significant finding. 3D MIPS: Confirm above findings. OTHER: No other significant finding. IMPRESSION: No pulmonary embolus. No aortic aneurysm. There is a large left lower lobe mass that i s confluent with the left hilum. There is subcarinal adenopathy. Rounded masses are seen in each br east. Large heterogeneous right adrenal mass. COMMENT: Quality ID # [id number]: Final reports with documentation of one or more dose reduction techniques (e.g., Automated exposure control, adjustment of the mA and/or kV according to patient size, use of iterative reconstruction technique) TECHNICAL DOCUMENTATION: JOB ID: [id number] 2010 [employer]- All Rights Reserved Reading location - IP/workstation name: [email or web address]
[2020-05-27 19:40] VITALS: BP 120/74
--- NOTE | 2020-05-27 23:34 | EKG REPORT ---
SEVERITY:- ABNORMAL ECG - SINUS TACHYCARDIA VENTRICULAR TRIGEMINY BIATRIAL ABNORMALITIES PROBABLE LEFT VENTRICULAR HYPERTROPHY BORDERLINE T ABNORMALITIES, INFERIOR LEADS : Confirmed by: Jacqui Yepez MD 27-May-2020 23:33:34
== END 2020-05-27 19:41 | disposition home or self-care (01) ==
LOC: ER 15:12
DX: C34.92 Malignant neoplasm of unspecified part of left bronchus or lung (principal); J44.1 Chronic obstructive pulmonary disease with (acute) exacerbation; R06.02 Shortness of breath; R06.2 Wheezing; Z88.0 Allergy status to penicillin; Z88.8 Allergy status to other drugs, medicaments and biological substances; I10 Essential (primary) hypertension
CPT/HCPCS: 93005; 94640; 99285; 96374; 96375; 36415; 85025; 85610; 85730; 80053; 71046; 71275; 93010; J2930; A9270; S0028

== ENCOUNTER 2020-06-02 05:48 | Emergency (ER) | payer MEDICARE ==
[2020-06-02] MEDS ORDERED: LORAZEPAM INJ 2 MG/1 ML VIAL IV ONE (06:17)
--- NOTE | 2020-06-02 06:26 | ER Document Report ---
ED General - General Chief Complaint: Tremor Stated Complaint: LOW SUGAR/TREMOR Time Seen by Provider: 06/02/20 05:51 Primary Care Provider: OLIVIA MATA NP [Primary Care Provider] - Follow up as needed Notes: 54-year-old female presents with shaking. She woke up this morning, after going to bed last night feeling fine, with twitching and shaking of her whole body right greater than left. She is able to control the left leg but not the right side. She says that she is had a history of stroke causing right-sided weakness but her weakness is worse today. Blood sugar was reading high. No urinary changes, no head impact, and takes all the requisite medicines for stroke other than a blood thinner. Brought in by EMS. TRAVEL OUTSIDE OF THE [place] IN LAST 30 DAYS: No - Related Data Allergies/Adverse Reactions: ibuprofen Allergy (Verified 11/20/19 19:27) Penicillins Allergy (Verified 11/20/19 19:27) Past Medical History - General Information source: Patient - Social History Smoking Status: Former Smoker Family History: Reviewed & Not Pertinent - Past Medical History Cardiac Medical History: Reports: Hx Hypertension Denies: Hx Atrial Fibrillation, Hx Congestive Heart Failure, Hx Coronary Artery Disease, Hx DVT, Hx Heart Attack, Hx Hypercholesterolemia, Hx Pulmonary Embolism Pulmonary Medical History: Reports: Hx COPD Denies: Hx Asthma Neurological Medical History: Reports: Hx Cerebrovascular Accident. Denies: Hx Seizures Endocrine Medical History: Denies: Hx Diabetes Mellitus Type 1, Hx Diabetes Mellitus Type 2, Hx Hyperthyroidism, Hx Hypothyroidism GI Medical History: Denies: Hx Cirrhosis, Hx Crohn's Disease, Hx Gastroesophageal Reflux Disease, Hx Hepatitis, Hx Ulcerative Colitis Musculoskeletal Medical History: Denies Hx Arthritis - Chronic degenerative spinal disc disease with chronic back pain, Denies Hx Gout Skin Medical History: Denies Hx Eczema, Denies Hx Psoriasis Psychiatric Medical History: Reports: Hx Depression Infectious Medical History: Denies: Hx Hepatitis Past Surgical History: Reports: Hx Orthopedic Surgery - Back surgery - Immunizations Hx Pneumococcal Vaccination: 07/31/19 Review of Systems - Review of Systems Notes: REVIEW OF SYSTEMS GEN: Denies fever, chills, weight loss ENT: Denies sore throat, nasal discharge, ear pain EYES: Denies blurry vision, eye pain, discharge CV: Denies chest pain, palpitations, edema RESP: Denies cough, shortness of breath, wheezing GI: Denies abdominal pain, nausea, vomiting, diarrhea MSK: Denies joint pain/swelling, edema, SKIN: Denies rash, skin lesions LYMPH: Denies swollen glands/lymph nodes NEURO: D shaking and right-sided weakness Ess PSYCH: Denies depression, suicidal or homicidal ideation PHYSICAL EXAMINATION General: No acute distress, well-nourished Head: Atraumatic, normocephalic ENT: Mouth normal, oropharynx moist, no exudates or tonsillar enlargement Eyes: Conjunctiva normal, pupils equal, lids normal Neck: No JVD, supple, no guarding CVS: Normal rate, regular rhythm, no murmurs Resp: No resp distress, equal and normal breath sounds bilaterally GI: Nondistended, soft, no tenderness to palpation, no rebound or guarding Ext: No deformities, no edema, normal range of motion in upper and lower ext Back: No CVA or midline TTP Skin: No rash, warm Lymphatic: No lymphadeopathy noted Neuro: With focus, but not on the right. Other than the twitching the right side is completely weak and unable to move against gravity. No facial asymmetry speech fluent memory intact.. Physical Exam - Vital signs Vitals: Resp 34 H 06/02/20 06:03 Course - Re-evaluation Re-evalutation: 06/02/20 06:25 Acute shaking right greater than left which could reflect partial status epilepticus, versus sequela of stroke versus new/worse stroke although this is difficult to ascertain and she is out of the window for TPA And then to give Ativan and assuming she has partial status epilepticus, check basic labs for DKA hyperglycemia and re-CT her head. 06/02/20 07:01 The patient did not tell me this but on her CT she has multiple mets and edema in her brain. Documentation in [place] system is sparse but it seems like she has probably metastatic disease and from her what her 's time it may be from breast. I actually discussed her with Dr. Herb hollins who states that she was supposed to come to his office but has not been seen there but has been cared for at [facility]. We discussed her disposition and he agrees that she should likely go somewhere with specialist care despite the fact that she is unlikely to get neurosurgical intervention. I have contacted [facility] and [facility]. 06/02/20 07:14 Patient has received Decadron and Keppra. She is become a little bit hypoxic secondary to advanced will place her on nasal cannula but the rest of her vitals are stable and I think this is worth the risk given that she is a has ongoing status epilepticus. I have discussed her case with Dr. Daniels hospitalist at [facility] who is accepted the patient as of 7:11 AM but I am also calling [facility] because that is where she is been before, and [facility] has an extended wait. 06/02/20 14:46 Lung shows likely malignancy as a source of the mets. No further seizure activity. Scheduled Keppra scheduled Decadron ordered diet and give Percocet for mild pain. Awaiting bed at [facility]. I did re-conference with Dr. murphy. She was downgraded from stepdown to the floor. - Vital Signs Vital signs: Temp Pulse Resp BP Pulse Ox 98.7 F 24 H 127/75 H 96 06/02/20 07:30 06/02/20 13:30 06/02/20 13:30 06/02/20 13:30 - Laboratory Result Diagrams: 06/02/20 06:15 06/02/20 06:15 Laboratory results interpreted by me: 06/02/20 06/02/20 06/02/20 06:15 06:15 09:29 WBC 22.2 H MCV 75 L MCH 23.7 L MCHC 31.6 L RDW 21.6 H Seg Neuts % (Manual) 89 H Band Neutrophils % 1 L Lymphocytes % (Manual) 7 L Abs Neuts (Manual) 20.0 H Sodium 130.5 L Potassium 5.6 H Chloride 92 L BUN 33 H Glucose 399 H POC Glucose 276 H - Diagnostic Test Radiology reviewed: Image reviewed, Reports reviewed Critical Care Note - Critical Care Note Total time excluding time spent on procedures (mins): 72 Comments: The above patient is critically ill. Not including procedures, but including direct re-evaluations, speaking with patient and/or consultants, interpreting results, and documenting, I spent the total amount of minute listed listed above on critical care time Discharge - Discharge Clinical Impression: Brain metastases, Mass of left lung, Hyponatremia, Partial symptomatic epilepsy with complex partial seizures, intractable, with status epilepticus Condition: Critical Disposition: [facility] Referrals: OLIVIA MATA NP [Primary Care Provider] - Follow up as needed
[2020-06-02 06:40] LABS: HEMATOCRIT 38.4 % (36.0-47.0); HEMOGLOBIN 12.1 g/dL (12.0-15.5); MEAN CORPUSCULAR HEMOGLOBIN 23.7 pg (27.0-33.4); MEAN CORPUSCULAR HGB CONC 31.6 g/dL (32.0-36.0); MEAN CORPUSCULAR VOLUME 75 fl (80-97); PLATELET COUNT 268 10^3/uL (150-450); RED BLOOD COUNT 5.13 10^6/uL (3.72-5.28); RED CELL DISTRIBUTION WIDTH 21.6 % (11.5-14.0); WHITE BLOOD COUNT 22.2 10^3/uL (4.0-10.5)
[2020-06-02] MEDS ORDERED: LEVETIRACETAM 1000 MG/NACL-ISO 1,000 MG/100 ML RTUPB IV ONE ×2 (06:45→06:47)
[2020-06-02] MEDS ORDERED: DEXAMETHASONE SOD PHOS INJ 10 MG/1 ML VIAL IV ONE (06:45)
[2020-06-02 06:50] LABS: ANION GAP 15 (5-19); BLOOD UREA NITROGEN 33 mg/dL (7-20); CALCIUM 9.7 mg/dL (8.4-10.2); CARBON DIOXIDE 24 mmol/L (22-30); CHLORIDE 92 mmol/L (98-107); GLUCOSE 399 mg/dL (75-110); POTASSIUM 5.6 mmol/L (3.6-5.0)
[2020-06-02] MEDS ORDERED: NORMAL SALINE 1000 ML 1,000 ML IV ONE (06:57)
--- NOTE | 2020-06-02 07:05 | RADIOLOGY REPORT (SQ) ---
CT of the head: 06/02/2020 6:00 AM CDT HISTORY: 54-year-old patient with concern for right-sided stroke. COMPARISON: CT of the head from 11/20/2019 and MRI of the brain from 11/21/2019 TECHNIQUE: Multiple axial contiguous images were obtained through the head without intravenous contrast administered. This exam was performed according to our departmental dose-optimization program, which includes automated exposure control, adjustment of the mA and/or KV according to the patient's size and/or use of iterative reconstruction technique. FINDINGS: There is a hypodensity again seen at the left frontal lobe at the area of the patient's known malignancy. There are nodule seen along the left lateral ventricle which are hyperdense. There are hyper dense area seen at the posterior bilateral parietal lobes associated with adjacent edema. These are consistent with the patient's known malignancy. Many of the masses appear hyperdense which could be due to some trace hemorrhage. There is an evolving hypodensity at the right posterior parietal lobe. New since prior imaging and may represent malignancy with adjacent edema. An infarct is not excluded. There is some mass effect on the lateral ventricles. There is a minimal midline shift to the right by 2 to 3 mm. The visualized calvarium is intact. The visualized paranasal sinuses appear clear. The globes appear unremarkable. The mastoid air cells appear clear. IMPRESSION: There are multiple masses present with adjacent edema. There is increased hypodensity at the posterior right parietal lobe which could represent edema from masses. An infarct is not fully excluded. Many of the masses appear hyperdense, which could be associated with some hemorrhage. If there is persistent clinical concern for a neurologic deficit, consider MRI brain with diffusion-weighted sequences for further evaluation.
[2020-06-02 07:16] LABS: ABSOLUTE LYMPHOCYTES# (MANUAL) 1.6 10^3/uL (0.5-4.7); ABSOLUTE MONOCYTES # (MANUAL) 0.7 10^3/uL (0.1-1.4); BAND NEUTROPHILS % (MANUAL) 1 % (3-5); BASOPHILS % (MANUAL) 0 % (0-2); EOSINOPHILS % (MANUAL) 0 % (0-6); LYMPHOCYTES % (MANUAL) 7 % (13-45); MONOCYTES % (MANUAL) 3 % (3-13); SEGMENTED NEUTROPHILS % (MAN) 89 % (42-78); TOTAL CELLS COUNTED 100
[2020-06-02 07:18] LABS: ANISOCYTOSIS 3+; HYPOCHROMASIA 2+; PLATELET COMMENT ADEQUATE
[2020-06-02] MEDS ORDERED: INSULIN REG, HUMAN 100 UNIT/ML 3 ML VIAL (PYX) IV ONE (07:25)
[2020-06-02] MEDS ORDERED: FENTANYL CITRATE INJ/PF 100 MCG/2 ML AMPUL IV ONE (07:27)
--- NOTE | 2020-06-02 07:47 | EKG REPORT ---
SEVERITY:- DEFECTIVE ECG - SINUS TACHYCARDIA BIATRIAL ABNORMALITIES LEFT VENTRICULAR HYPERTROPHY ABNORMAL T, CONSIDER ISCHEMIA, INFERIOR LEADS BORDERLINE PROLONGED QT INTERVAL : Confirmed by: Jonas Saeed MD 02-Jun-2020 07:46:40
[2020-06-02] MEDS ORDERED: IPRATROPIUM/ALBUTEROL 0.5-2.5 MG/3 ML AMPUL NEB ONE (10:13)
--- NOTE | 2020-06-02 11:12 | RADIOLOGY REPORT (SQ) ---
EXAM DESCRIPTION: CHEST SINGLE VIEW IMAGES COMPLETED DATE/TIME: 06/02/2020 9:38 am REASON FOR STUDY: SOB hypoxic COMPARISON: 05/27/2020. CT chest, 05/27/2020. EXAM PARAMETERS: NUMBER OF VIEWS: One view. TECHNIQUE: Single frontal radiographic view of the chest acquired. RADIATION DOSE: NA LIMITATIONS: None. FINDINGS: LUNGS AND PLEURA: Masslike consolidation in the left mid to lower lung is stable. Right l eladia remains clear. No pneumothorax. MEDIASTINUM AND HILAR STRUCTURES: No masses. Contour normal. HEART AND VASCULAR STRUCTURES: Heart normal in size. Normal vasculature. BONES: No acute findings. HARDWARE: None in the chest. OTHER: No other significant finding. IMPRESSION: No significant interval change in masslike consolidation in the left lung. Given findin gs on CT, this is highly suggestive of pulmonary neoplasm. This would be amenable to percutaneous sa mpling as clinically indicated. TECHNICAL DOCUMENTATION: JOB ID: [id number] 2010 [employer]- All Rights Reserved Reading location - IP/workstation name: [email or web address]
[2020-06-02] MEDS ORDERED: DEXAMETHASONE SOD PHOSPHATE INJ 4 MG/1 ML VIAL IV ONE (14:26)
[2020-06-02] MEDS ORDERED: OXYCODONE-ACETAMINOPHEN 5-325 MG TABLET PO ONE ×2 (14:53→18:22)
[2020-06-02 15:13] LABS: APPEARANCE,URINE SLIGHTLY-CLOUDY; BILIRUBIN,URINE NEGATIVE (NEGATIVE); COLOR,URINE YELLOW; GLUCOSE, URINE >=500 mg/dL (NEGATIVE); KETONES,URINE NEGATIVE (NEGATIVE); PROTEIN,URINE 30 mg/dL (NEGATIVE); URINE SPECIFIC GRAVITY 1.025; UROBILINOGEN,URINE NEGATIVE mg/dL (<2.0)
[2020-06-02 15:25] LABS: ANION GAP 7 (5-19); BLOOD UREA NITROGEN 24 mg/dL (7-20); CALCIUM 9.1 mg/dL (8.4-10.2); CARBON DIOXIDE 28 mmol/L (22-30); CHLORIDE 95 mmol/L (98-107); GLUCOSE 320 mg/dL (75-110)
[2020-06-02 15:41] LABS: POTASSIUM 4.5 mmol/L (3.6-5.0)
[2020-06-02] MEDS: LEVETIRACETAM 500 MG/NACL-ISO 500 MG/100 ML RTUPB IV SCH (18:20)
[2020-06-03] MEDS ORDERED: IPRATROPIUM/ALBUTEROL 0.5-2.5 MG/3 ML AMPUL NEB ONE ×2 (05:10→13:08)
[2020-06-03] MEDS ORDERED: ONDANSETRON 4 MG TAB.RAPDIS PO PRN (09:51)
[2020-06-03] MEDS ORDERED: (PENDING PHARMACY ID) (Clonazepam [Klonopin] 0.5 MG) PO PRN (09:51)
[2020-06-03] MEDS: LEVETIRACETAM 500 MG/NACL-ISO 500 MG/100 ML RTUPB IV SCH ×2 (10:25→17:51)
[2020-06-03] MEDS: ASPIRIN 81 MG TABLET, ENT COATED PO SCH (10:38)
[2020-06-03] MEDS: DEXAMETHASONE 4 MG TABLET PO SCH ×2 (10:41→21:38)
[2020-06-03] MEDS: PREGABALIN 50 MG CAPSULE PO SCH ×3 (10:41→17:51)
[2020-06-03] MEDS: DOXYCYCLINE HYCLATE 100 MG TABLET PO SCH ×2 (11:35→21:38)
[2020-06-03] MEDS ORDERED: DEXTROSE 40% GEL 15 GM TUBE PO PRN (16:30)
[2020-06-03] MEDS ORDERED: GLUCAGON,HUMAN RECOMB 1 MG INJ IM PRN (16:30)
[2020-06-03] MEDS ORDERED: DEXTROSE 40% GEL 15 GM TUBE X 2 PO PRN (16:30)
[2020-06-03] MEDS ORDERED: DEXTROSE 50%-WATER SYRINGE 25 GM/50 ML DOSE IV PRN (16:30)
[2020-06-03] MEDS ORDERED: DEXTROSE 50%-WATER SYRINGE 12.5 GM/25 ML DOSE IV PRN (16:30)
[2020-06-03] MEDS: NORMAL SALINE 1000 ML 1,000 ML IV PRN (16:38)
[2020-06-03] MEDS: INSULIN LISPRO 100 UNIT/ML 3 ML VIAL SUBCUT SCH ×2 (16:38→21:38)
--- NOTE | 2020-06-03 17:20 | ER Document Report ---
Doctor's Note Notes: 06/03/20 17:15 ED providers note patient's vital signs 102/62 order respiratory rate of 28 saturation pulse oximetry 93 heart rate 82 patient resting comfortably not showing signs of distress at this time. Patient has not had any seizure activity in the past 24 hours. Patient labs does show some hyponatremia and some glucose metabolism elevations of her serum glucose. Case was discussed at length today with Dr. Herb hollins who is engineering test specialist who patient was to have a meeting clinic visit today. Inasmuch as she was in the hospital and pending a transfer to [facility] based on her acceptance there over the past 2 days we entertain the idea that whether or not patient could be admitted to the hospital here in [place] inasmuch as her engineering test specialist Dr. Herb hollins, and her radiation on oncology schedule is at our hospital that it would be convenient for patient to not be transferred. However due to this new onset seizure activity which is undoubtedly most likely related to her metastatic cancer. Patient has lung cancer and apparent metastatic disease to her brain with some swelling with multiple masses, patient does not need to be admitted to the hospital inasmuch as we do not have neurology coverage. With that said had further discussion with the hospitalist who I have consulted on patient and has written orders to manage patients with her hyponatremia and her elevated glucose. Patient has received her medications today including a new orders for insulin sliding scale by the hospitalist. Patient also has received as needed as needed nebulizer treatment for her shortness of breath and wheezing. Plan is to continue to manage patient in the emergency department as we wait for her her bed opening at [facility]. Also apparently the hospitalist staff will consult on a daily basis to determine progress of patient as we await her transfer.
[2020-06-03] MEDS ORDERED: ALBUTEROL SULFATE 0.083% NEB 2.5 MG/3 ML AMPUL NEB PRN (17:41)
[2020-06-03 18:01] LABS: ABSOLUTE BASOPHILS # (AUTO) 0.1 10^3/uL (0.0-0.2); ABSOLUTE LYMPHOCYTES (AUTO) 0.8 10^3/uL (0.5-4.7); ABSOLUTE MONOCYTES (AUTO) 0.7 10^3/uL (0.1-1.4); ABSOLUTE NEUT (AUTO) 13.8 10^3/uL (1.7-8.2); BASOPHILS % (AUTO) 0.4 % (0-2); HEMATOCRIT 34.6 % (36.0-47.0); HEMOGLOBIN 11.2 g/dL (12.0-15.5); LYMPHOCYTES % (AUTO) 5.3 % (13-45); MEAN CORPUSCULAR HGB CONC 32.3 g/dL (32.0-36.0); MEAN CORPUSCULAR VOLUME 74 fl (80-97); MONOCYTES % (AUTO) 4.7 % (3-13); PLATELET COUNT 230 10^3/uL (150-450); RED BLOOD COUNT 4.66 10^6/uL (3.72-5.28); RED CELL DISTRIBUTION WIDTH 21.6 % (11.5-14.0); SEGMENTED NEUTROPHILS % (AUTO) 89.6 % (42-78); TOTAL CELLS COUNTED % (AUTO) 100 %; WHITE BLOOD COUNT 15.4 10^3/uL (4.0-10.5)
[2020-06-03 18:11] LABS: ALBUMIN 2.2 g/dL (3.5-5.0); ALKALINE PHOSPHATASE 153 U/L (38-126); ANION GAP 7 (5-19); ASPARTATE AMINO TRANSFERASE 26 U/L (14-36); BILIRUBIN,DIRECT 0.4 mg/dL (0.0-0.4); BILIRUBIN,TOTAL 0.5 mg/dL (0.2-1.3); BLOOD UREA NITROGEN 21 mg/dL (7-20); CALCIUM 8.1 mg/dL (8.4-10.2); CARBON DIOXIDE 25 mmol/L (22-30); CHLORIDE 98 mmol/L (98-107); GLUCOSE 315 mg/dL (75-110); POTASSIUM 4.2 mmol/L (3.6-5.0); TOTAL PROTEIN 4.9 g/dL (6.3-8.2)
[2020-06-03] MEDS ORDERED: IPRATROPIUM/ALBUTEROL 0.5-2.5 MG/3 ML AMPUL NEB PRN (19:16)
[2020-06-03] MEDS ORDERED: LORAZEPAM INJ 2 MG/1 ML VIAL IV PRN (19:16)
[2020-06-03] MEDS ORDERED: ACETAMINOPHEN 325 MG TABLET PO PRN (19:17)
--- NOTE | 2020-06-03 19:26 | PDOC CONSULTATION ---
Consultation Consult Date: 06/03/20 Attending physician:: SANJANA SALGADO Provider Consulted: ENZO FRIEDMAN History of Present Illness Admission Date/PCP: OLIVIA MATA NP History of Present Illness: PAULA JOHNSON is a 54 year old female past medical history significant for left CVA due to carotid stenosis status post CEA, COPD, widely metastatic newly diagnosed cancer of unknown source who presented with a 1 day history prolonged seizure activity lasting approximately 15 minutes at a time per who witnessed that. Patient was able to talk during this but was confused with suggest she was not having a generalized seizure but rather focal seizures. Patient was brought to ED and neurology and hospitalist service at [facility] were contacted by ED personnel, patient was accepted for transfer there and she is currently awaiting a bed. She has not had any seizure activity since yesterday. General medicine was consulted to manage her elevated blood sugars and electrolytes among other medical problems while she awaits her transfer to [facility]. Her blood sugars have been running in the 300s since she was started on steroids for vasogenic edema around her brain masses. She was started on Keppra by [facility] neurology advisor consultant. Patient was supposed to have follow-up with Dr. Chucky hollins and have biopsy of breast mass but she began having seizures. Past Medical History Cardiac Medical History: Reports: Hypertension Denies: Atrial Fibrillation, Congestive Heart Failure, Coronary Artery Disease, DVT, Myocardial Infarction, Hyperlipidema, Pulmonary Embolism Pulmonary Medical History: Reports: Chronic Obstructive Pulmonary Disease (COPD) Denies: Asthma Neurological Medical History: Reports: Ischemic CVA Denies: Seizures Endocrine Medical History: Denies: Diabetes Mellitus Type 1, Diabetes Mellitus Type 2, Hyperthyroidism, Hypothyroidism Malignancy Medical History: Reports: Brain Cancer GI Medical History: Denies: Cirrhosis, Crohn's Disease, Gastroesophageal Reflux Disease, Hepatitis, Ulcerative Colitis Musculoskeltal Medical History: Denies: Arthritis - Chronic degenerative spinal disc disease with chronic back pain, Gout Skin Medical History: Denies: Eczema, Psoriasis Psychiatric Medical History: Reports: Depression Hematology: Denies: Anemia, Bleeding Tendencies Past Surgical History Past Surgical History: Reports: Carotid Endarterectomy, Orthopedic Surgery - Back surgery Social History Information Source: Patient, Relative, Emergency Med Personnel Smoking Status: Former Smoker Electronic Cigarette use?: No Frequency of Alcohol Use: None Hx Recreational Drug Use: No Drugs: None Hx Prescription Drug Abuse: No - Advance Directive Resuscitation Status: Full Code Surrogate healthcare decision maker:: Ajith Family History Family History: Reviewed & Not Pertinent, CAD, CVA Parental Family History Reviewed: Yes Children Family History Reviewed: Yes Sibling(s) Family History Reviewed.: Yes Medication/Allergy Home Medications: Lansoprazole 30 mg PO Q6AM 11/20/19 Pregabalin [Lyrica 50 mg Capsule] 50 mg PO TID 11/20/19 Doxycycline Monohydrate 100 mg PO BID #20 capsule 05/27/20 Aspirin [Ecotrin 81 mg EC Tablet] 81 mg PO DAILY 06/03/20 Clonazepam [Klonopin] 0.5 mg PO BIDP PRN 06/03/20 Dexamethasone [Decadron 4 mg Tablet] 4 mg PO BID 06/03/20 Mirtazapine [Remeron 15 mg Tablet] 15 mg PO QHS 06/03/20 Ondansetron [Zofran Odt 4 mg Tablet] 4 mg PO Q8HP PRN 06/03/20 Oxycodone HCl/Acetaminophen [Percocet 5-325 mg Tablet] 1 tab PO Q6HP PRN MDD 3 06/03/20 Allergies/Adverse Reactions: ibuprofen Allergy (Verified 06/03/20 07:22) Penicillins Allergy (Verified 06/03/20 07:22) Review of Systems All systems: reviewed and no additional remarkable complaints except as stated - Review of systems per HPI, otherwise negative Physical Exam Vital Signs: Temp Pulse Resp BP Pulse Ox 97.7 F 76 25 H 102/62 94 06/03/20 10:00 06/02/20 20:48 06/03/20 17:01 06/03/20 17:00 06/03/20 17:01 Intake & Output 06/02/20 06/03/20 06/04/20 06:59 06:59 06:59 Intake Total 1200 200 Balance 1200 200 Weight 59 kg General appearance: PRESENT: no acute distress, well-developed, well-nourished Head exam: PRESENT: atraumatic, normocephalic Eye exam: PRESENT: conjunctiva pink. ABSENT: scleral icterus Mouth exam: PRESENT: moist Respiratory exam: PRESENT: clear to auscultation josé luis. ABSENT: rales, rhonchi, wheezes Cardiovascular exam: PRESENT: RRR. ABSENT: diastolic murmur, rubs, systolic murmur GI/Abdominal exam: PRESENT: normal bowel sounds, soft. ABSENT: distended, guarding, mass, organolmegaly, rebound, tenderness Rectal exam: PRESENT: deferred Neurological exam: PRESENT: alert, awake, oriented to person, oriented to place, oriented to time, oriented to situation, CN II-XII grossly intact. ABSENT: motor sensory deficit Psychiatric exam: PRESENT: appropriate affect, normal mood Skin exam: PRESENT: dry, intact, warm Results Laboratory Results: 06/03/20 17:30 06/03/20 17:30 06/03/20 06/03/20 17:30 17:30 WBC 15.4 H RBC 4.66 Hgb 11.2 L Hct 34.6 L MCV 74 L MCH 24.0 L MCHC 32.3 RDW 21.6 H Plt Count 230 Seg Neutrophils % 89.6 H Sodium 129.6 L Potassium 4.2 Chloride 98 Carbon Dioxide 25 Anion Gap 7 BUN 21 H Creatinine 0.44 L Est GFR ( Amer) > 60 Glucose 315 H Calcium 8.1 L Total Bilirubin 0.5 AST 26 Alkaline Phosphatase 153 H Total Protein 4.9 L Albumin 2.2 L Impressions: Head CT 06/02/20 06:17 IMPRESSION: There are multiple masses present with adjacent edema. There is increased hypodensity at the posterior right parietal lobe which could represent edema from masses. An infarct is not fully excluded. Many of the masses appear hyperdense, which could be associated with some hemorrhage. If there is persistent clinical concern for a neurologic deficit, consider MRI brain with diffusion-weighted sequences for further evaluation. Chest X-Ray 06/02/20 10:13 IMPRESSION: No significant interval change in masslike consolidation in the left lung. Given findings on CT, this is highly suggestive of pulmonary neoplasm. This would be amenable to percutaneous sampling as clinically indicated. Assessment and Plan - Diagnosis (1) Partial symptomatic epilepsy with complex partial seizures, intractable, with status epilepticus Is this a current diagnosis for this admission?: Yes Plan: New onset seizures on 06/02 and lasting approximately 15 minutes witnessed by , patient conscious during episodes but with uncontrollable shaking and jerking motions of her limbs mostly legs Plan to transfer to [facility] for neurology and neurosurgery evaluation Continue Keppra as recommended by neurology at [facility] As needed Ativan for seizure activity Continue dexamethasone for brain mass edema (2) Brain metastases Is this a current diagnosis for this admission?: Yes Plan: As above (3) Hyponatremia Is this a current diagnosis for this admission?: Yes Plan: Gentle normal saline, from an edema standpoint would be beneficial to have seru m sodium a bit higher rather than a lower value which he currently has been Trend BMP (4) Mass of left lung Is this a current diagnosis for this admission?: Yes (5) CVA (cerebral vascular accident) Qualifiers: CVA mechanism: unspecified Qualified Code(s): I63.9 - Cerebral infarction, unspecified Is this a current diagnosis for this admission?: Yes Plan: Mild right hemiplegia from stroke in the past, nearly at baseline currently Continue on aspirin (6) Carotid stenosis, left Is this a current diagnosis for this admission?: Yes Plan: Status post carotid endarterectomy on the left (7) Hypertension Qualifiers: Hypertension type: essential hypertension Qualified Code(s): I10 - Ess ential (primary) hypertension Is this a current diagnosis for this admission?: Yes Plan: Controlled without medications - Time Time Spent with patient: 35 or more minutes Medications reviewed and adjusted accordingly: Yes Anticipated Discharge Disposition: Tertiary Anticipated Discharge Timeframe: within 24 hours
[2020-06-03] MEDS ORDERED: MORPHINE SULFATE 10 MG/ML INJ IV PRN (19:27)
--- NOTE | 2020-06-03 19:27 | ADVANCED CARE ---
- Diagnosis (1) Partial symptomatic epilepsy with complex partial seizures, intractable, with status epilepticus Diagnosis Current: Yes (2) Brain metastases Diagnosis Current: Yes (3) Hyponatremia Diagnosis Current: Yes (4) Mass of left lung Diagnosis Current: Yes (5) CVA (cerebral vascular accident) Diagnosis Current: Yes (6) Carotid stenosis, left Diagnosis Current: Yes (7) Hypertension Diagnosis Current: Yes Attendance: Patient and Resuscitation Status: Full Code Discussion: All aspects of code status discussed with patient/POA including cardioversion, chest compressions, and intubation and the patient/POA indicated they wish to be full code MPOA is designated as: Ajith Time Spent: Greater than 16 minutes
[2020-06-03] MEDS: INSULIN GLARGINE,HUM.REC.ANLOG 1,000 UNIT/10 ML VIAL SUBCUT SCH (19:50)
[2020-06-03] MEDS ORDERED: DOCUSATE SODIUM 100 MG CAPSULE PO SCH (20:00)
[2020-06-03] MEDS ORDERED: MIRTAZAPINE 15 MG TABLET PO SCH (22:00)
[2020-06-04] MEDS ORDERED: PANTOPRAZOLE SODIUM 20 MG TABLET.DR PO SCH (06:00)
[2020-06-04] MEDS ORDERED: (PENDING PHARMACY ID) (Lansoprazole [Lansoprazole] 30 MG) PO SCH (06:00)
[2020-06-04] MEDS: NORMAL SALINE 1000 ML 1,000 ML IV PRN (06:10)
[2020-06-04] MEDS: INSULIN LISPRO 100 UNIT/ML 3 ML VIAL SUBCUT SCH ×2 (09:01→12:31)
[2020-06-04] MEDS: INSULIN GLARGINE,HUM.REC.ANLOG 1,000 UNIT/10 ML VIAL SUBCUT SCH (09:02)
[2020-06-04] MEDS: ASPIRIN 81 MG TABLET, ENT COATED PO SCH (09:03)
[2020-06-04] MEDS: OXYCODONE-ACETAMINOPHEN 5-325 MG TABLET PO PRN ×2 (09:03→15:11)
[2020-06-04] MEDS: DEXAMETHASONE 4 MG TABLET PO SCH (09:03)
[2020-06-04] MEDS: DOXYCYCLINE HYCLATE 100 MG TABLET PO SCH (09:04)
[2020-06-04] MEDS: LEVETIRACETAM 500 MG/NACL-ISO 500 MG/100 ML RTUPB IV SCH (09:04)
[2020-06-04] MEDS: PREGABALIN 50 MG CAPSULE PO SCH ×2 (09:04→15:09)
--- NOTE | 2020-06-04 11:53 | PDOC CONSULTATION ---
Consultation Consult Date: 06/04/20 Attending physician:: ENZO FRIEDMAN Provider Consulted: MAURICE GREGG Consult reason:: Patient with newly diagnosed brain metastasis, breast masses, chest wall lesions, lung lesions History of Present Illness Admission Date/PCP: OLIVIA MATA NP Patient complains of: Confusion, weakness History of Present Illness: PAULA JOHNSON is a 54 year old female who seems to have been diagnosed recently with stage IV breast cancer. She presented initially about a month ago with facial swelling and weakness and ultimately on brain imaging had multiple brain metastasis which was confirmed on MRI. There was some concern of bleed as well. At that time she was transferred to [facility] and further imaging indicated bilateral breast masses, lung masses along with the brain metastasis. In the left chest wall there was a lesion on the skin that was biopsied and that was carcinoma consistent with breast primary HER-2 positive. We received notes this week and we were going to see the patient on Saturday and establish care here locally. Patient did see Dr. Herron of radiation oncology here at [place], and received 5 of 10 radiation treatments thus far. She was doing okay getting through the treatments but about 12 hours prior to admission she had loss of right-sided strength, and seizure activity, her brought her into the ER and she had further seizure here. She was loaded with Keppra and I recommended initiation of dexamethasone 10 mg IV. They were taking dexamethasone orally at home. She was continued on dexamethasone 4 mg every 6 hours and continued on Keppra thousand milligram twice daily. Because of the lack of neurosurgical and neurology support, the decision was made to transfer her, and now she has been accepted to go back to [facility]. Past Medical History Cardiac Medical History: Reports: Hypertension Denies: Atrial Fibrillation, Congestive Heart Failure, Coronary Artery Disease, DVT, Myocardial Infarction, Hyperlipidema, Pulmonary Embolism Pulmonary Medical History: Reports: Chronic Obstructive Pulmonary Disease (COPD) Denies: Asthma Neurological Medical History: Reports: Ischemic CVA Denies: Seizures Endocrine Medical History: Denies: Diabetes Mellitus Type 1, Diabetes Mellitus Type 2, Hyperthyroidism, Hypothyroidism Malignancy Medical History: Reports: Brain Cancer GI Medical History: Denies: Cirrhosis, Crohn's Disease, Gastroesophageal Reflux Disease, Hepatitis, Ulcerative Colitis Musculoskeltal Medical History: Denies: Arthritis - Chronic degenerative spinal disc disease with chronic back pain, Gout Skin Medical History: Denies: Eczema, Psoriasis Psychiatric Medical History: Reports: Depression Hematology: Denies: Anemia, Bleeding Tendencies Past Surgical History Past Surgical History: Reports: Carotid Endarterectomy, Orthopedic Surgery - Back surgery Social History Information Source: Patient Smoking Status: Former Smoker Electronic Cigarette use?: No Frequency of Alcohol Use: None Hx Recreational Drug Use: No Drugs: None Hx Prescription Drug Abuse: No - Advance Directive Resuscitation Status: Full Code Family History Family History: Reviewed & Not Pertinent, CAD, CVA Parental Family History Reviewed: Yes Children Family History Reviewed: Yes Sibling(s) Family History Reviewed.: Yes Medication/Allergy Home Medications: Lansoprazole 30 mg PO Q6AM 11/20/19 Pregabalin [Lyrica 50 mg Capsule] 50 mg PO TID 11/20/19 Doxycycline Monohydrate 100 mg PO BID #20 capsule 05/27/20 Aspirin [Ecotrin 81 mg EC Tablet] 81 mg PO DAILY 06/03/20 Clonazepam [Klonopin] 0.5 mg PO BIDP PRN 06/03/20 Dexamethasone [Decadron 4 mg Tablet] 4 mg PO BID 06/03/20 Mirtazapine [Remeron 15 mg Tablet] 15 mg PO QHS 06/03/20 Ondansetron [Zofran Odt 4 mg Tablet] 4 mg PO Q8HP PRN 06/03/20 Oxycodone HCl/Acetaminophen [Percocet 5-325 mg Tablet] 1 tab PO Q6HP PRN MDD 3 06/03/20 Atorvastatin Calcium [Lipitor 80 mg Tablet] 80 mg PO QHS 06/04/20 Clopidogrel Bisulfate [Plavix 75 mg Tablet] 75 mg PO DAILY 06/04/20 Allergies/Adverse Reactions: ibuprofen Allergy (Verified 06/03/20 07:22) Penicillins Allergy (Verified 06/03/20 07:22) Review of Systems Constitutional: ABSENT: chills, fever(s), headache(s), weight gain, weight loss Eyes: ABSENT: visual disturbances Ears: ABSENT: hearing changes Cardiovascular: ABSENT: chest pain, dyspnea on exertion, edema, orthropnea, palpitations Respiratory: ABSENT: cough, hemoptysis Gastrointestinal: ABSENT: abdominal pain, constipation, diarrhea, hematemesis, hematochezia, nausea, vomiting Genitourinary: ABSENT: dysuria, hematuria Musculoskeletal: ABSENT: joint swelling Integumentary: ABSENT: rash, wounds Neurological: ABSENT: abnormal gait, abnormal speech, confusion, dizziness, focal weakness, syncope Psychiatric: ABSENT: anxiety, depression, homidical ideation, suicidal ideation Endocrine: ABSENT: cold intolerance, heat intolerance, polydipsia, polyuria Hematologic/Lymphatic: ABSENT: easy bleeding, easy bruising Physical Exam Vital Signs: Temp Pulse Resp BP Pulse Ox 97.9 F 76 19 112/75 90 L 06/04/20 10:06 06/02/20 20:48 06/04/20 10:01 06/04/20 10:00 06/04/20 10:01 Intake & Output 06/03/20 06/04/20 06/05/20 06:59 06:59 06:59 Intake Total 1200 1200 100 Balance 1200 1200 100 General appearance: PRESENT: no acute distress, well-developed, well-nourished Head exam: PRESENT: atraumatic, normocephalic Eye exam: PRESENT: conjunctiva pink, EOMI, PERRLA. ABSENT: scleral icterus Ear exam: PRESENT: normal external ear exam Mouth exam: PRESENT: moist, tongue midline Neck exam: ABSENT: carotid bruit, JVD, lymphadenopathy, thyromegaly Respiratory exam: PRESENT: clear to auscultation josé luis. ABSENT: rales, rhonchi, wheezes Cardiovascular exam: PRESENT: RRR. ABSENT: diastolic murmur, rubs, systolic murmur Pulses: PRESENT: normal dorsalis pedis pul Vascular exam: PRESENT: normal capillary refill GI/Abdominal exam: PRESENT: normal bowel sounds, soft. ABSENT: distended, guarding, mass, organolmegaly, rebound, tenderness Rectal exam: PRESENT: deferred Extremities exam: PRESENT: full ROM. ABSENT: calf tenderness, clubbing, pedal edema Neurological exam: PRESENT: alert, awake, oriented to person, oriented to place, oriented to time, oriented to situation, CN II-XII grossly intact. ABSENT: motor sensory deficit Psychiatric exam: PRESENT: appropriate affect, normal mood. ABSENT: homicidal ideation, suicidal ideation Skin exam: PRESENT: dry, intact, warm. ABSENT: cyanosis, rash Results Laboratory Results: 06/03/20 17:30 06/03/20 17:30 06/03/20 06/03/20 17:30 17:30 WBC 15.4 H RBC 4.66 Hgb 11.2 L Hct 34.6 L MCV 74 L MCH 24.0 L MCHC 32.3 RDW 21.6 H Plt Count 230 Seg Neutrophils % 89.6 H Sodium 129.6 L Potassium 4.2 Chloride 98 Carbon Dioxide 25 Anion Gap 7 BUN 21 H Creatinine 0.44 L Est GFR ( Amer) > 60 Glucose 315 H Calcium 8.1 L Total Bilirubin 0.5 AST 26 Alkaline Phosphatase 153 H Total Protein 4.9 L Albumin 2.2 L Impressions: Head CT 06/02/20 06:17 IMPRESSION: There are multiple masses present with adjacent edema. There is increased hypodensity at the posterior right parietal lobe which could represent edema from masses. An infarct is not fully excluded. Many of the masses appear hyperdense, which could be associated with some hemorrhage. If there is persistent clinical concern for a neurologic deficit, consider MRI brain with diffusion-weighted sequences for further evaluation. Chest X-Ray 06/02/20 10:13 IMPRESSION: No significant interval change in masslike consolidation in the left lung. Given findings on CT, this is highly suggestive of pulmonary neoplasm. This would be amenable to percutaneous sampling as clinically indicat ed. Assessment & Plan - Diagnosis (1) Brain metastases Is this a current diagnosis for this admission?: Yes Plan: She will need to ultimately complete whole brain radiation. But await further recommendations from [facility] on this. Continue with dexamethasone. (2) Partial symptomatic epilepsy with complex partial seizures, intractable, with status epilepticus Is this a current diagnosis for this admission?: Yes Plan: Continued on Keppra. Appreciate further neurology support at [facility]. (3) Mass of left lung Is this a current diagnosis for this admission?: Yes Plan: Hospitalist was discussing with oncology at [facility] who was reviewing records and noted that the lung lesions are concerning for possibly a second primary as opposed to metastasis from a primary breast cancer. Await [facility] recommendations on that. (4) Breast cancer Qualifiers: Breast location: overlapping sites of breast Estrogen receptor status: unspecified Patient sex: female Laterality: bilateral Qualified Code(s): C50.811 - Malignant neoplasm of overlapping sites of right female breast; C50.812 - Malignant neoplasm of overlapping sites of left female breast Is this a current diagnosis for this admission?: Yes Plan: HER-2 positive stage IV breast cancer is what it appears to be. In this case, agree with the recommendations of completing brain radiation then considering HER-2 based chemotherapy such as Taxotere/carboplatin/Herceptin plus minus Perjeta or substituting carboplatin for Cytoxan as well. But await further [facility] recommendations on this. - Time Time Spent: Greater than 70 Minutes - Inpatient Certification Based on my medical assessment, after consideration of the patient's comorbidities, presenting symptoms, or acuity I expect that the services needed warrant INPATIENT care.: Yes I certify that my determination is in accordance with my understanding of Medicare's requirements for reasonable and necessary INPATIENT services [42 CFR 412.3e].: Yes Medical Necessity: Risk of Complication if Not Cared For in Hospital
[2020-06-04] MEDS ORDERED: FLUTICASONE/VILANTEROL 100-25 MCG/DOSE IH ONE (13:00)
[2020-06-04 13:08] LABS: ANION GAP 6 (5-19); BLOOD UREA NITROGEN 16 mg/dL (7-20); CALCIUM 8.5 mg/dL (8.4-10.2); CARBON DIOXIDE 25 mmol/L (22-30); CHLORIDE 98 mmol/L (98-107); GLUCOSE 355 mg/dL (75-110)
[2020-06-04] MEDS ORDERED: INSULIN GLARGINE,HUM.REC.ANLOG 1,000 UNIT/10 ML VIAL SUBCUT SCH (14:00)
--- NOTE | 2020-06-04 14:45 | PDOC TRANSFER SUMMARY ---
General Admission Date/PCP: OLIVIA MATA NP Resuscitation Status: Full Code - Transfer Diagnosis (1) Partial symptomatic epilepsy with complex partial seizures, intractable, with status epilepticus Is this a current diagnosis for this admission?: Yes (2) Brain metastases Is this a current diagnosis for this admission?: Yes (3) Hyponatremia Is this a current diagnosis for this admission?: Yes (4) Mass of left lung Is this a current diagnosis for this admission?: Yes (5) CVA (cerebral vascular accident) Is this a current diagnosis for this admission?: Yes (6) Carotid stenosis, left Is this a current diagnosis for this admission?: Yes (7) Hypertension Is this a current diagnosis for this admission?: Yes - Transfer Medications Home Medications: Lansoprazole 30 mg PO Q6AM 11/20/19 Pregabalin [Lyrica 50 mg Capsule] 50 mg PO TID 11/20/19 Aspirin [Ecotrin 81 mg EC Tablet] 81 mg PO DAILY 06/03/20 Clonazepam [Klonopin] 0.5 mg PO BIDP PRN 06/03/20 Dexamethasone [Decadron 4 mg Tablet] 4 mg PO BID 06/03/20 Mirtazapine [Remeron 15 mg Tablet] 15 mg PO QHS 06/03/20 Ondansetron [Zofran Odt 4 mg Tablet] 4 mg PO Q8HP PRN 06/03/20 Oxycodone HCl/Acetaminophen [Percocet 5-325 mg Tablet] 1 tab PO Q6HP PRN MDD 3 06/03/20 Atorvastatin Calcium [Lipitor 80 mg Tablet] 80 mg PO QHS 06/04/20 Clopidogrel Bisulfate [Plavix 75 mg Tablet] 75 mg PO DAILY 06/04/20 Transfer Medications: Current Medications Acetaminophen (Tylenol 325 Mg Tablet) 650 mg PO Q4HP PRN PRN Reason: pain or fever Stop: 07/03/20 19:16 Albuterol (Ventolin 0.083% Neb 2.5 Mg/3 Ml Ampul) 2.5 mg NEB Q6H PRN PRN Reason: FOR WHEEZING Stop: 07/03/20 17:40 Last Admin: 06/03/20 19:24 Dose: 2.5 mg Documented by: Albuterol/Ipratropium (Duoneb 3 Ml Ampul) 3 ml NEB RTQ2HP PRN PRN Reason: SHORTNESS OF BREATH Stop: 07/03/20 19:15 Last Admin: 06/04/20 02:33 Dose: 3 ml Documented by: Aspirin (Ecotrin 81 Mg Ec Tablet) 81 mg PO DAILY NICK Stop: 07/03/20 09:59 Last Admin: 06/04/20 09:03 Dose: 81 mg Documented by: Dexamethasone (Decadron 4 Mg Tablet) 4 mg PO Q12 NICK Stop: 07/03/20 09:59 Last Admin: 06/04/20 09:03 Dose: 4 mg Documented by: Dextrose (Dextrose Inj 50% Syringe (25 Gm/50 Ml)) 12.5 gm IV PRN PRN; Protocol PRN Reason: FOR BG 50-69 IN ALERT PATIENT Stop: 07/03/20 16:29 Dextrose (Dextrose Inj 50% Syringe (25 Gm/50 Ml)) 25 gm IV PRN PRN; Protocol Stop: 07/03/20 16:29 Docusate Sodium (Colace 100 Mg Capsule) 100 mg PO Q2D NICK Stop: 07/03/20 19:59 Last Admin: 06/03/20 19:49 Dose: 100 mg Documented by: Doxycycline Hyclate (Vibramycin 100 Mg Tablet) 100 mg PO Q12 NICK Stop: 06/10/20 10:59 Last Admin: 06/04/20 09:04 Dose: 100 mg Documented by: Glucagon (Glucagen Inj 1 Mg Vial) 1 mg IM PRN PRN; Protocol PRN Reason: EVALUATE FOR BG < 70 Stop: 07/03/20 16:29 Glucose (Glutose 40% Gel 15 Gm Tube) 15 gm PO PRN PRN; Protocol PRN Reason: FOR BG 50-69 IN ALERT PATIENT Stop: 07/03/20 16:29 Glucose (Glutose 40% Gel 15 Gm Tube) 30 gm PO PRN PRN; Protocol PRN Reason: FOR BG < 50 IN ALERT PATIENT Stop: 07/03/20 16:29 Levetiracetam (Keppra Rtu 500 Mg/Nacl-Iso 100 Ml Premix) 500 mg in 100 mls @ 400 mls/hr IV BID NICK Stop: 07/03/20 17:59 Last Infusion: 06/04/20 09:18 Dose: Infused Documented by: Sodium Chloride (Nacl 0.9% 1000 Ml Iv Soln) 1,000 mls @ 75 mls/hr IV CONTINUOUS PRN PRN Reason: THIS MED IS NOT "PRN" Stop: 07/03/20 15:39 Last Admin: 06/04/20 06:10 Dose: 75 mls/hr Documented by: Insulin Glargine (Lantus Insulin 100 Unit/1 Ml 10 Ml) 12 unit SUBCUT DAILY [facility] Stop: 07/04/20 13:59 Insulin Human Lispro (Humalog Insulin 100 Unit/1 Ml 3 Ml Vial) 0 - 12 unit BRICE BCUT ACHS [facility]; Protocol Stop: 07/03/20 15:59 Last Admin: 06/04/20 12:31 Dose: 8 unit Documented by: Lorazepam (Ativan Inj 2 Mg/1 Ml Vial) 1 mg IV Q1MP PRN PRN Reason: seizure activity Stop: 06/10/20 19:15 Mirtazapine (Remeron 15 Mg Tablet) 15 mg PO QHS [facility] Stop: 07/03/20 21:59 Last Admin: 06/03/20 21:38 Dose: 15 mg Documented by: Morphine Sulfate (Morphine 10 Mg/Ml Inj) 1 mg IV Q4HP PRN PRN Reason: moderate to severe pain Stop: 06/10/20 19:26 Last Admin: 06/04/20 12:30 Dose: 1 mg Documented by: Ondansetron HCl (Zofran Odt 4 Mg Tablet) 4 mg PO Q8HP PRN PRN Reason: NAUSEA Stop: 07/03/20 09:50 Oxycodone/Acetaminophen (Percocet 5-325 Mg Tablet) 1 tab PO Q6HP PRN PRN Reason: FOR PAIN Stop: 06/10/20 09:50 Last Admin: 06/04/20 09:03 Dose: 1 tab Documented by: Pantoprazole Sodium (Protonix [address] Tablet) 20 mg PO Q6AM [facility] Stop: 07/04/20 05:59 Last Admin: 06/04/20 06:09 Dose: 20 mg Documented by: Patient Own Medication (Clonazepam [Klonopin]) 0.5 mg PO Q12HP PRN PRN Reason: ANXIETY Stop: 07/03/20 09:50 Pregabalin (Lyrica 50 Mg Capsule) 50 mg PO TID [facility] Stop: 07/03/20 09:59 Last Admin: 06/04/20 09:04 Dose: 50 mg Documented by: - Allergies Allergies/Adverse Reactions: ibuprofen Allergy (Verified 06/03/20 07:22) Penicillins Allergy (Verified 06/03/20 07:22) Hospital Course Hospital Course: PAULA JOHNSON is a 54 year old female past medical history significant for left CVA due to carotid stenosis status post CEA, COPD, widely metastatic newly diagnosed cancer of unknown source who presented with a 1 day history prolonged seizure activity lasting approximately 15 minutes at a time per who witnessed that. Patient was able to talk during this but was confused with suggest she was not having a generalized seizure but rather focal seizures. Patient was brought to ED and neurology and hospitalist service at [facility] were contacted by ED personnel, patient was accepted for transfer there and she is currently awaiting a bed. She has not had any seizure activity since yesterday. General medicine was consulted to manage her elevated blood sugars and electrolytes among other medical problems while she awaits her transfer to [facility]. Her blood sugars have been running in the 300s since she was started on steroids for vasogenic edema around her brain masses. She was started on Keppra by [facility] neurology career development consultant. Patient was supposed to have follow-up with Dr. Connors and have biopsy of breast mass but she began having seizures. Patient was kept in ED for an additional 24 hours awaiting transfer to outside hospital. I personally called [facility] where patient has been admitted for cancer treatment in the past and I discussed the case with the oncology team there who accepted the patient to their service. Patient will be under the care of Dr. Neri is the attending physician at [facility]. Please notify them when the patient arrives. (1) Partial symptomatic epilepsy with complex partial seizures, intractable, with status epilepticus Is this a current diagnosis for this admission?: Yes Plan: New onset seizures on 06/02 and lasting approximately 15 minutes witnessed by , patient conscious during episodes but with uncontrollable shaking and jerking motions of her limbs mostly legs Plan to transfer to [facility] for neurology and neurosurgery evaluation Continue Keppra as recommended by neurology at [facility] As needed Ativan for seizure activity Continue dexamethasone for brain mass edema -trying to raise sodium to at least normal levels with IV NS (2) Brain metastases Is this a current diagnosis for this admission?: Yes Plan: As above (3) Hyponatremia Is this a current diagnosis for this admission?: Yes Plan: Gentle normal saline; from an edema standpoint would be beneficial to have serum sodium a bit higher rather than a lower value Trend BMP (4) Mass of left lung Is this a current diagnosis for this admission?: Yes (5) CVA (cerebral vascular accident) Qualifiers: CVA mechanism: unspecified Qualified Code(s): I63.9 - Cerebral infarction, unspecified Is this a current diagnosis for this admission?: Yes Plan: Mild right hemiplegia from stroke in the past, nearly at baseline currently Continue on aspirin (6) Carotid stenosis, left Is this a current diagnosis for this admission?: Yes Plan: Status post carotid endarterectomy on the left (7) Hypertension Qualifiers: Hypertension type: essential hypertension Qualified Code(s): I10 - Essential (primary) hypertension Is this a current diagnosis for this admission?: Yes Plan: Controlled without medications (8) Steroid Induced Hyperglycemia -possible underlying T2DM -added lantus and SSI, accucheks Physical Exam Vital Signs: Temp Pulse Resp BP Pulse Ox 97.6 F 76 19 118/70 98 06/04/20 13:01 06/02/20 20:48 06/04/20 13:01 06/04/20 13:00 06/04/20 13:01 Intake & Output 06/03/20 06/04/20 06/05/20 06:59 06:59 06:59 Intake Total 1200 1200 100 Balance 1200 1200 100 Exam: General appearance: PRESENT: no acute distress, well-developed, well-nourished, states she very much wants her cancer treated Head exam: PRESENT: atraumatic, normocephalic Eye exam: PRESENT: conjunctiva pink. ABSENT: scleral icterus Mouth exam: PRESENT: moist Respiratory exam: PRESENT: clear to auscultation josé luis. ABSENT: rales, rhonchi, wheezes Cardiovascular exam: PRESENT: RRR. ABSENT: diastolic murmur, rubs, systolic murmur GI/Abdominal exam: PRESENT: normal bowel sounds, soft. ABSENT: distended, gu arding, mass, organolmegaly, rebound, tenderness Rectal exam: PRESENT: deferred Neurological exam: PRESENT: alert, awake, oriented to person, oriented to place, oriented to time, oriented to situation, CN II-XII grossly intact. ABSENT: motor sensory deficit Psychiatric exam: PRESENT: appropriate affect, normal mood Skin exam: PRESENT: dry, intact, warm Results Laboratory Results: 06/03/20 17:30 06/04/20 12:37 06/03/20 06/03/20 06/04/20 17:30 17:30 12:37 WBC 15.4 H RBC 4.66 Hgb 11.2 L Hct 34.6 L MCV 74 L MCH 24.0 L MCHC 32.3 RDW 21.6 H Plt Count 230 Seg Neutrophils % 89.6 H Sodium 129.6 L 129.2 L Potassium 4.2 4.0 Chloride 98 98 Carbon Dioxide 25 25 Anion Gap 7 6 BUN 21 H 16 Creatinine 0.44 L 0.46 L Est GFR ( Amer) > 60 > 60 Glucose 315 H 355 H Calcium 8.1 L 8.5 Total Bilirubin 0.5 AST 26 Alkaline Phosphatase 153 H Total Protein 4.9 L Albumin 2.2 L Impressions: Head CT 06/02/20 06:17 IMPRESSION: There are multiple masses present with adjacent edema. There is increased hypodensity at the posterior right parietal lobe which could represent edema from masses. An infarct is not fully excluded. Many of the masses appear hyperdense, which could be associated with some hemorrhage. If there is persistent clinical concern for a neurologic deficit, consider MRI brain with diffusion-weighted sequences for further evaluation. Chest X-Ray 06/02/20 10:13 IMPRESSION: No significant interval change in masslike consolidation in the left lung. Given findings on CT, this is highly suggestive of pulmonary neoplasm. This would be amenable to percutaneous sampling as clinically indicated. Plan Time Spent: Greater than 30 Minutes
--- NOTE | 2020-06-04 15:00 | ER Document Report ---
Doctor's Note Notes: 06/04/20 14:58 I was asked to reevaluate this lady for transport stability. This is a 54-year-old female with breast CA metastatic to brain who recently came to the ER after development of new seizure activity. Presence of brain metastases established by CT. Patient has been on Keppra and steroids and has had consultation with oncology here. She was also seen by inpatient hospitalist team and they were reluctant to admit her here because of no availability of inpatient neurology services. She has subsequently been accepted by the medical oncology service at [facility] and we are preparing for transport at this time. Patient is alert, awake and hemodynamically stable and has no specific complaints this time. EMTALA form completed.
[2020-06-04 15:30] VITALS: BP 112/59
== END 2020-06-04 15:45 | disposition short-term general hospital (02) ==
LOC: ER 05:48
DX: C50.919 Malignant neoplasm of unspecified site of unspecified female breast (principal); C78.02 Secondary malignant neoplasm of left lung; C79.31 Secondary malignant neoplasm of brain; G40.211 Localization-related (focal) (partial) symptomatic epilepsy and epileptic syndromes with complex partial seizures, intractable, with status epilepticus; E87.1 Hypo-osmolality and hyponatremia; R25.1 Tremor, unspecified; R53.1 Weakness; Z88.0 Allergy status to penicillin; Z88.8 Allergy status to other drugs, medicaments and biological substances; Z87.891 Personal history of nicotine dependence
CPT/HCPCS: 93005; 96376; 94640 ×2; 99291; 96372; 96361; 96375; 96365; 96368; 36415; 82962; 85025; 80048; 80053; 81001; 71045; 70450; 93010; A9270 ×10; J1100 ×2; J3010; J2270; J2060; J7030 ×2; J1953 ×3; J3490; J1815; J7613; J8540

== ENCOUNTER 2020-07-11 10:35 | Inpatient (IN) | payer MEDICARE ==
[2020-07-11 11:24] LABS: ABSOLUTE BASOPHILS # (AUTO) 0.1 10^3/uL (0.0-0.2); ABSOLUTE MONOCYTES (AUTO) 1.2 10^3/uL (0.1-1.4); ABSOLUTE NEUT (AUTO) 16.1 10^3/uL (1.7-8.2); BASOPHILS % (AUTO) 0.4 % (0-2); HEMATOCRIT 34.4 % (36.0-47.0); HEMOGLOBIN 10.7 g/dL (12.0-15.5); LYMPHOCYTES % (AUTO) 10.2 % (13-45); MEAN CORPUSCULAR HEMOGLOBIN 23.5 pg (27.0-33.4); MEAN CORPUSCULAR VOLUME 76 fl (80-97); MONOCYTES % (AUTO) 6.4 % (3-13); PLATELET COUNT 627 10^3/uL (150-450); RED BLOOD COUNT 4.53 10^6/uL (3.72-5.28); RED CELL DISTRIBUTION WIDTH 19.4 % (11.5-14.0); TOTAL CELLS COUNTED % (AUTO) 100 %; WHITE BLOOD COUNT 19.4 10^3/uL (4.0-10.5)
[2020-07-11 11:25] LABS: VENOUS BLOOD BASE EXCESS 11.2 mmol/L; VENOUS BLOOD HCO3 36.9 mmol/L (20-32); VENOUS BLOOD PCO2 54.1 mmHg (35-63); VENOUS BLOOD PH 7.45 (7.30-7.42)
[2020-07-11 11:31] LABS: INTERNATIONAL RATION (INR) 1.04; PROTHROMBIN TIME 13.8 SEC (11.4-15.4)
[2020-07-11 11:44] LABS: ALBUMIN 2.9 g/dL (3.5-5.0); ALKALINE PHOSPHATASE 292 U/L (38-126); ANION GAP 9 (5-19); ASPARTATE AMINO TRANSFERASE 24 U/L (14-36); BILIRUBIN,DIRECT 0.5 mg/dL (0.0-0.4); BILIRUBIN,TOTAL 0.8 mg/dL (0.2-1.3); BLOOD UREA NITROGEN 27 mg/dL (7-20); CARBON DIOXIDE 34 mmol/L (22-30); CHLORIDE 92 mmol/L (98-107); GLUCOSE 97 mg/dL (75-110); POTASSIUM 3.7 mmol/L (3.6-5.0); TOTAL PROTEIN 6.8 g/dL (6.3-8.2)
[2020-07-11 11:59] LABS: APPEARANCE,URINE CLEAR; BILIRUBIN,URINE NEGATIVE (NEGATIVE); COLOR,URINE YELLOW; GLUCOSE, URINE NEGATIVE (NEGATIVE); KETONES,URINE NEGATIVE (NEGATIVE); PROTEIN,URINE NEGATIVE (NEGATIVE); URINE SPECIFIC GRAVITY 1.018
[2020-07-11] MEDS ORDERED: NORMAL SALINE 1000 ML 1,000 ML IV ONE ×2 (12:02→13:03)
--- NOTE | 2020-07-11 12:13 | RADIOLOGY REPORT (SQ) ---
EXAM DESCRIPTION: CHEST SINGLE VIEW IMAGES COMPLETED DATE/TIME: 07/11/2020 11:24 am REASON FOR STUDY: bed 1 sepsis protocol COMPARISON: 06/02/2020, CT chest dated 05/27/2020 EXAM PARAMETERS: NUMBER OF VIEWS: One view. TECHNIQUE: Single frontal radiographic view of the chest acquired. RADIATION DOSE: NA LIMITATIONS: None. FINDINGS: LUNGS AND PLEURA: Near complete opacification of left hemithorax. The patient has a known left lower lobe mass. Probable surrounding atelectasis and effusion. There is a right upper lobe n odule consistent with metastatic disease. MEDIASTINUM AND HILAR STRUCTURES: No masses. Contour normal. HEART AND VASCULAR STRUCTURES: Heart normal in size. Normal vasculature. BONES: No acute findings. HARDWARE: None in the chest. OTHER: No other significant finding. IMPRESSION: Increasing left-sided opacification consistent with known mass along with effusion and a telectasis. Right upper lobe pulmonary nodule consistent with metastatic disease. TECHNICAL DOCUMENTATION: JOB ID: [id number] 2010 [employer]- All Rights Reserved Reading location - IP/workstation name: [email or web address]
[2020-07-11 12:21] LABS: CALCIUM 14.7 mg/dL (8.4-10.2)
[2020-07-11] MEDS ORDERED: MORPHINE SULFATE 10 MG/ML INJ IV ONE (12:47)
[2020-07-11] MEDS ORDERED: ZOLEDRONIC ACID 4 MG/100 ML RTU IV ONE ×2 (13:01→14:00)
--- NOTE | 2020-07-11 13:07 | ER Document Report ---
ED General - General Chief Complaint: Altered Mental Status Stated Complaint: ALTERED MENTAL STATUS Time Seen by Provider: 07/11/20 12:02 Primary Care Provider: OLIVIA MATA NP [Primary Care Provider] - Follow up as needed Notes: HPI: 54-year-old female with what appears to be metastatic breast cancer to the brain who was seen here on June 02 with seizures with metastatic lesions to the brain and transferred to [facility]. She presents here with some "increased pain" all over according to the patient and the patient's son. Patient's last radiation therapy treatment here was 2 weeks ago. She is not on current chemotherapy. Patient has had no fevers, vomiting, or diarrhea. She is supposed to see Dr. Hernandez with oncology here. She has missed the last appointment her next appointment is July. ROS: See HPI All other review of systems reviewed and otherwise negative Reviewed vital signs and nursing note as charted by RN. PHYSICAL EXAM: CONSTITUTIONAL: Very thin frail female cachectic in appearance HEAD: Normocephalic; atraumatic EYES: PERRL; Conjunctivae clear, sclerae non-icteric ENT: Normal nose; no rhinorrhea; moist mucous membranes; pharynx without lesions noted NECK: Supple without meningismus; non-tender; no cervical lymphadenopathy, no masses CARD: Regular rate and rhythm; no murmurs; symmetric distal pulses RESP: Normal chest excursion without splinting or tachypnea; right nodular breast mass to the right lateral quadrant of the breast; breath sounds bilatera lly with some rhonchi scattered ABD/GI: Normal bowel sounds; non-distended; soft, non-tender; no palpable organomegaly or masses BACK: The back appears normal and is non-tender to palpation EXT: Normal ROM in all joints; non-tender to palpation; no edema SKIN: No acute lesions noted NEURO: CN 2-12 intact; 5/5 bilateral upper and lower extremity strength with sensation intact to light touch TRAVEL OUTSIDE OF THE [place] IN LAST 30 DAYS: No - Related Data Allergies/Adverse Reactions: ibuprofen Allergy (Verified 07/11/20 10:41) Penicillins Allergy (Verified 07/11/20 10:41) Past Medical History - Social History Smoking Status: Unknown if Ever Smoked Family History: Reviewed & Not Pertinent, CAD, CVA - Past Medical History Cardiac Medical History: Reports: Hx Hypertension Denies: Hx Atrial Fibrillation, Hx Congestive Heart Failure, Hx Coronary Artery Disease, Hx DVT, Hx Heart Attack, Hx Hypercholesterolemia, Hx Pulmonary Embolism Pulmonary Medical History: Reports: Hx COPD Denies: Hx Asthma Neurological Medical History: Reports: Hx Cerebrovascular Accident. Denies: Hx Seizures Endocrine Medical History: Denies: Hx Diabetes Mellitus Type 1, Hx Diabetes Mellitus Type 2, Hx Hyperthyroidism, Hx Hypothyroidism Malignancy Medical History: Reports: Hx Brain Cancer GI Medical History: Denies: Hx Cirrhosis, Hx Crohn's Disease, Hx Gastroesophageal Reflux Disease, Hx Hepatitis, Hx Ulcerative Colitis Musculoskeletal Medical History: Denies Hx Arthritis - Chronic degenerative spinal disc disease with chronic back pain, Denies Hx Gout Skin Medical History: Denies Hx Eczema, Denies Hx Psoriasis Psychiatric Medical History: Reports: Hx Depression Infectious Medical History: Denies: Hx Hepatitis Past Surgical History: Reports: Hx Carotid Endarterectomy, Hx Orthopedic Surgery - Back surgery - Immunizations Hx Pneumococcal Vaccination: 07/31/19 Physical Exam - Vital signs Vitals: Pulse Ox 93 07/11/20 10:43 Course - Re-evaluation Re-evalutation: Given the above history and physical we will obtain basic labs, creatinine, x- ray of the chest, CT scan of the head, and reassess. Patient has no focal logical deficits. Concerned about extensive mets and/or high calcium Labs as recorded. Elevated white count. No obvious source. Patient is afebrile. Calcium is 14.7. It was 8.3 on last visit. I have discussed and consulted with oncology. He believes we can keep the patient here at this facility. I have already started fluids on a fluid drip. He would like me to go directly to a bisphosphonate and skip the calcitonin at this time. This has been ordered. 07/11/20 13:07 Imaging as recorded. Patient will be admitted to the hospitalist service with oncology consultation. 07/11/20 13:20 I did have a talk with the patient and family regarding a living will. They state that they believe they need to have one placed. I started the resuscitation/DO NOT RESUSCITATE conversation. - Vital Signs Vital signs: Temp Pulse Resp BP Pulse Ox 98.4 F 110 H 23 H 131/80 H 94 07/11/20 11:08 07/11/20 11:08 07/11/20 12:44 07/11/20 12:44 07/11/20 12:44 - Laboratory Result Diagrams: 07/11/20 11:09 07/11/20 11:09 Laboratory results interpreted by me: 07/11/20 07/11/20 07/11/20 11:09 11:09 11:09 WBC 19.4 H Hgb 10.7 L Hct 34.4 L MCV 76 L MCH 23.5 L MCHC 31.0 L RDW 19.4 H Plt Count 627 H Lymph % (Auto) 10.2 L Absolute Neuts (auto) 16.1 H Seg Neutrophils % 83.0 H VBG pH 7.45 H VBG HCO3 36.9 H Sodium 135.4 L Chloride 92 L Carbon Dioxide 34 H BUN 27 H Calcium 14.7 H* Direct Bilirubin 0.5 H Alkaline Phosphatase 292 H Albumin 2.9 L Urine Urobilinogen 07/11/20 11:09 WBC Hgb Hct MCV MCH MCHC RDW Plt Count Lymph % (Auto) Absolute Neuts (auto) Seg Neutrophils % VBG pH VBG HCO3 Sodium Chloride Carbon Dioxide BUN Calcium Direct Bilirubin Alkaline Phosphatase Albumin Urine Urobilinogen 2.0 H Critical Care Note - Critical Care Note Total time excluding time spent on procedures (mins): 35 Discharge - Discharge Clinical Impression: Hypercalcemia, Metastatic breast cancer, Bone pain Condition: Serious Disposition: ADMITTED INPATIENT Admitting Provider: Susanne (Hospitalist) Unit Admitted: IMCU Referrals: OLIVIA MATA NP [Primary Care Provider] - Follow up as needed
--- NOTE | 2020-07-11 13:12 | RADIOLOGY REPORT (SQ) ---
EXAM DESCRIPTION: CT HEAD WITHOUT IMAGES COMPLETED DATE/TIME: 07/11/2020 1:01 pm REASON FOR STUDY: 1; AMS with brain mets COMPARISON: 06/02/2020 TECHNIQUE: Axial images acquired through the brain without intravenous contrast. Images reviewed wi th bone, brain and subdural windows. Additional sagittal and coronal reconstructions were generated. Images stored on PACS. All CT scanners at this facility use dose modulation, iterative reconstruction, and/or weight based d osing when appropriate to reduce radiation dose to as low as reasonably achievable (ALARA). [facility]: Dose Right [facility]: CareDose [facility]: Dose Right [facility]: Teradose 4D [facility]: MyAppConverter RADIATION DOSE: CT Rad equipment meets quality standard of care and radiation dose reduction techniq ues were employed. CTDIvol: 53.2 mGy. DLP: 991 mGy-cm. mGy. LIMITATIONS: None. FINDINGS: VENTRICLES: Normal size and contour. CEREBRUM: There multiple cerebral metastases. There are areas of vasogenic edema. There does not ap pear to be a significant interval change. There is no hemorrhage. There is no evidence of acute inf arction. CEREBELLUM: No masses. No hemorrhage. No alteration of density. No evidence for acute infarction. EXTRAAXIAL SPACES: No fluid collections. No masses. ORBITS AND GLOBE: No intra- or extraconal masses. Normal contour of globe without masses. CALVARIUM: No fracture. PARANASAL SINUSES: No fluid or mucosal thickening. SOFT TISSUES: No mass or hematoma. OTHER: No other significant finding. IMPRESSION: Stable cerebral metastases. No acute intracranial imaging finding. EVIDENCE OF ACUTE STROKE: NO. COMMENT: Quality ID # [id number]: Final reports with documentation of one or more dose reduction techniques (e.g., Automated exposure control, adjustment of the mA and/or kV according to patient size, use of iterative reconstruction technique) TECHNICAL DOCUMENTATION: JOB ID: [id number] 2010 [employer]- All Rights Reserved Reading location - IP/workstation name: [email or web address]
[2020-07-11] MEDS ORDERED: MAGNESIUM HYDROXIDE SUSP 30 ML UDCUP PO PRN (14:46)
[2020-07-11] MEDS ORDERED: ACETAMINOPHEN 325 MG TABLET PO PRN (14:46)
[2020-07-11] MEDS ORDERED: IPRATROPIUM/ALBUTEROL 0.5-2.5 MG/3 ML AMPUL NEB PRN (14:46)
[2020-07-11] MEDS ORDERED: ONDANSETRON HCL INJ/PF 4 MG/2 ML SDV IV PRN (14:46)
[2020-07-11] MEDS ORDERED: PROMETHAZINE HCL INJ 25 MG/1 ML VIAL IV PRN (14:46)
[2020-07-11] MEDS ORDERED: GLUCAGON,HUMAN RECOMB 1 MG INJ IM PRN (14:51)
[2020-07-11] MEDS ORDERED: DEXTROSE 50%-WATER 25 GM/50 ML DISP.SYRIN IV PRN ×2 (14:51)
[2020-07-11] MEDS ORDERED: DEXTROSE 40% GEL 15 GM TUBE PO PRN ×2 (14:51)
[2020-07-11] MEDS ORDERED: METOPROLOL TARTRATE PF/INJ 5 MG/5 ML SDV IV PRN (14:52)
[2020-07-11] MEDS ORDERED: HYDRALAZINE HCL INJ/PF 20 MG/1 ML SDV IV PRN (14:52)
[2020-07-11] MEDS ORDERED: MORPHINE SULFATE 10 MG/ML INJ IV PRN (15:11)
--- NOTE | 2020-07-11 15:11 | PDOC H&P ---
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, carotid stenosis status post carotid enterectomy who was recently admitted to [facility] for status epilepticus and subsequently transferred to [facility] where as per she stayed for 5 days and no intervention was done, patient was discharged home and was doing well, but about 2 weeks ago she received her radiation therapy she has been going down, who is present at the room is the source of history as patient is not providing any history due to severe generalized pain, as per patient having generalized pain, low appetite, low energy, dysphagia for solids, and weight loss. Patient has not had any fever, chills, nausea, vo miting, diarrhea, chest pain, shortness of breath or any seizure since being discharged from [facility]. In ED repeat head CT was unchanged from previous admission and on CMP calcium was noted to be above 15. Hospital was consulted for admission. Past Medical History Cardiac Medical History: Reports: Hypertension Denies: Atrial Fibrillation, Congestive Heart Failure, Coronary Artery Disease, DVT, Myocardial Infarction, Hyperlipidema, Pulmonary Embolism Pulmonary Medical History: Reports: Chronic Obstructive Pulmonary Disease (COPD) Denies: Asthma Neurological Medical History: Denies: Seizures Endocrine Medical History: Denies: Diabetes Mellitus Type 1, Diabetes Mellitus Type 2, Hyperthyroidism, Hypothyroidism Malignancy Medical History: Reports: Brain Cancer GI Medical History: Denies: Cirrhosis, Crohn's Disease, Gastroesophageal Reflux Disease, Hepatitis, Ulcerative Colitis Musculoskeltal Medical History: Denies: Arthritis - Chronic degenerative spinal disc disease with chronic back pain, Gout Skin Medical History: Denies: Eczema, Psoriasis Psychiatric Medical History: Reports: Depression Hematology: Denies: Anemia, Bleeding Tendencies Past Surgical History Past Surgical History: Reports: Carotid Endarterectomy, Orthopedic Surgery - Back surgery Social History Smoking Status: Unknown if Ever Smoked Frequency of Alcohol Use: None Hx Recreational Drug Use: No Drugs: None Hx Prescription Drug Abuse: No Family History Family History: Reviewed & Not Pertinent, CAD, CVA Parental Family History Reviewed: Yes Children Family History Reviewed: Yes Sibling(s) Family History Reviewed.: Yes Medication/Allergy Home Medications: Lansoprazole 30 mg PO Q6AM 11/20/19 Pregabalin [Lyrica 50 mg Capsule] 50 mg PO TID 11/20/19 Clonazepam [Klonopin] 0.5 mg PO BIDP PRN 06/03/20 Dexamethasone [Decadron 4 mg Tablet] 4 mg PO BID 06/03/20 Mirtazapine [Remeron 15 mg Tablet] 15 mg PO QHS 06/03/20 Albuterol Sulfate [Ventolin Hfa 8 gm Mdi] 1 puff IH QAM 07/11/20 Aspirin [Aspirin 81 mg Chewable Tablet] 81 mg PO DAILY 07/11/20 Cyclobenzaprine HCl 5 mg PO Q8HP PRN 07/11/20 Fluticasone/Vilanterol [Breo 100-25 Mcg Ellipta 14 Dose/Dpi] 1 puff IH DAILY 07/11/20 Levetiracetam [Keppra Xr] 750 mg PO Q12 07/11/20 Oxycodone HCl [Oxy-Ir 5 mg Tablet] 10 mg PO Q4HP PRN 07/11/20 Allergies/Adverse Reactions: ibuprofen Allergy (Verified 07/11/20 10:41) Penicillins Allergy (Verified 07/11/20 10:41) Review of Systems Review of Systems: as per hpi Physical Exam Vital Signs: Temp Pulse Resp BP Pulse Ox 98.4 F 110 H 12 100/65 95 07/11/20 11:08 07/11/20 11:08 07/11/20 13:44 07/11/20 13:29 07/11/20 13:44 Intake & Output 07/10/20 07/11/20 07/12/20 06:59 06:59 06:59 Intake Total 1000 Balance 1000 Weight 50.1 kg General appearance: PRESENT: mild distress, other - Patient is awake, alert however does not provide any history prefers her to provide history. Generalized tenderness to palpation all over the body. Head exam: PRESENT: atraumatic, normocephalic Respiratory exam: PRESENT: clear to auscultation josé luis. ABSENT: rales, rhonchi, wheezes Cardiovascular exam: PRESENT: RRR. ABSENT: diastolic murmur, rubs, systolic murmur Breast: PRESENT: Other - Right lateral breast mass. GI/Abdominal exam: PRESENT: normal bowel sounds, soft. ABSENT: distended, guarding, mass, organolmegaly, rebound, tenderness Extremities exam: PRESENT: full ROM. ABSENT: calf tenderness, clubbing, pedal edema Neurological exam: PRESENT: alert, awake, CN II-XII grossly intact, other - Patient awake and alert, does not provide any history and prefers for her to provide history. Skin exam: PRESENT: dry, intact, warm. ABSENT: cyanosis, rash Results Laboratory Results: 07/11/20 11:09 07/11/20 11:09 07/11/20 07/11/20 07/11/20 11:09 11:09 11:09 WBC 19.4 H RBC 4.53 Hgb 10.7 L Hct 34.4 L MCV 76 L MCH 23.5 L MCHC 31.0 L RDW 19.4 H Plt Count 627 H Seg Neutrophils % 83.0 H VBG pH 7.45 H VBG pCO2 54.1 VBG HCO3 36.9 H VBG Base Excess 11.2 Sodium 135.4 L Potassium 3.7 Chloride 92 L Carbon Dioxide 34 H Anion Gap 9 BUN 27 H Creatinine 0.54 Est GFR ( Amer) > 60 Glucose 97 Lactic Acid Calcium 14.7 H* Total Bilirubin 0.8 AST 24 Alkaline Phosphatase 292 H Total Protein 6.8 Albumin 2.9 L Urine Color Urine Appearance Urine pH Ur Specific [place] Urine Protein Urine Glucose (UA) Urine Ketones Urine Blood Urine RBC (Auto) 07/11/20 07/11/20 07/11/20 11:09 11:09 13:39 WBC RBC Hgb Hct MCV MCH MCHC RDW Plt Count Seg Neutrophils % VBG pH VBG pCO2 VBG HCO3 VBG Base Excess Sodium Potassium Chloride Carbon Dioxide Anion Gap BUN Creatinine Est GFR ( Amer) Glucose Lactic Acid 1.7 1.1 Calcium Total Bilirubin AST Alkaline Phosphatase Total Protein Albumin Urine Color YELLOW Urine Appearance CLEAR Urine pH 5.0 Ur Specific [place] 1.018 Urine Protein NEGATIVE Urine Glucose (UA) NEGATIVE Urine Ketones NEGATIVE Urine Blood NEGATIVE Urine RBC (Auto) 1 07/11/20 11:09 Troponin I < 0.012 Impressions: Chest X-Ray 07/11/20 10:40 IMPRESSION: Increasing left-sided opacification consistent with known mass along with effusion and atelectasis. Right upper lobe pulmonary nodule consistent with metastatic disease. Head CT 07/11/20 12:03 IMPRESSION: Stable cerebral metastases. No acute intracranial imaging finding. EVIDENCE OF ACUTE STROKE: NO. Assessment and Plan - Diagnosis (1) Hypercalcemia Is this a current diagnosis for this admission?: Yes Plan: Likely hypercalcemia of malignancy. Corrected calcium is about 15. Patient already received Zometa in ED. We will continue aggressive fluid resuscitation guided by volume status and BMP every 6 hours. (2) Metastatic breast cancer Is this a current diagnosis for this admission?: Yes Plan: Recently diagnosed metastatic brain cancer. Followed by Dr. Connors. Last brain radiation 2 weeks ago. Oncology consulted. Patient and family considering hospice care. They would like to talk to Dr. Connors first before making final decisions. (3) Carotid stenosis, left Is this a current diagnosis for this admission?: Yes Plan: Status post endarterectomy. Continue statins. (4) Hypertension Qualifiers: Is this a current diagnosis for this admission?: Yes Plan: Appears very dry, normotensive. Resume home meds. Adjust meds as needed. Outpatient PCP follow-up. - Time Time Spent with patient: 35 or more minutes Medications reviewed and adjusted accordingly: Yes Anticipated Discharge Disposition: Hospice Center Anticipated Discharge Timeframe: when bed available
[2020-07-11] MEDS: INSULIN LISPRO 100 UNIT/ML 3 ML VIAL SUBCUT SCH ×2 (16:32→21:49)
[2020-07-11] MEDS: MORPHINE SULFATE 10 MG/ML INJ IV PRN ×2 (16:37→19:01)
[2020-07-11] MEDS: NORMAL SALINE 1000 ML 1,000 ML IV PRN (19:02)
[2020-07-11] MEDS: DEXAMETHASONE 4 MG TABLET PO SCH (19:02)
--- NOTE | 2020-07-11 19:51 | EKG REPORT ---
SEVERITY:- BORDERLINE ECG - SINUS TACHYCARDIA BORDERLINE T ABNORMALITIES, DIFFUSE LEADS : Confirmed by: Aroldo Burkett 11-Jul-2020 19:51:00
[2020-07-11] MEDS: LEVETIRACETAM 1000 MG/NACL-ISO 1,000 MG/100 ML RTUPB IV SCH (21:55)
[2020-07-11] MEDS: FAMOTIDINE INJ/PF 20 MG/2 ML SDV IV SCH (21:55)
[2020-07-11] MEDS ORDERED: FAMOTIDINE INJ/PF 20 MG/2 ML SDV IV SCH (22:00)
[2020-07-11] MEDS ORDERED: POTASSIUM CHLORIDE 10 MEQ TABLET.ER PO ONE (23:00)
[2020-07-11 23:02] LABS: ANION GAP 8 (5-19); BLOOD UREA NITROGEN 19 mg/dL (7-20); CARBON DIOXIDE 29 mmol/L (22-30); CHLORIDE 100 mmol/L (98-107); GLUCOSE 111 mg/dL (75-110)
[2020-07-11 23:23] LABS: CALCIUM 12.8 mg/dL (8.4-10.2); POTASSIUM 2.9 mmol/L (3.6-5.0)
[2020-07-12] MEDS: POTASSIUM CHLORIDE 20 MEQ/50 ML RTU IV SCH ×2 (00:19→01:45)
[2020-07-12] MEDS: MORPHINE SULFATE 10 MG/ML INJ IV PRN ×5 (00:58→19:59)
[2020-07-12] MEDS: NORMAL SALINE 1000 ML 1,000 ML IV PRN ×2 (01:46→06:50)
--- NOTE | 2020-07-12 08:03 | ADVANCED CARE ---
- Diagnosis (1) Metastatic breast cancer Diagnosis Current: Yes Attendance: D/w , agrees w DNR Resuscitation Status: Do Not Resuscitate
--- NOTE | 2020-07-12 08:09 | PDOC CONSULTATION ---
Consultation Consult Date: 07/12/20 Attending physician:: ENZO FRIEDMAN Provider Consulted: MAURICE GREGG Consult reason:: Stage IV breast cancer, weakness, confusion History of Present Illness Admission Date/PCP: 07/11/20 14:06 OLIVIA MATA NP Patient complains of: Weakness, confusion History of Present Illness: PAULA JOHNSON is a 54 year old female w/ widely metastatic breast cancer, newly dx brain mets. Completed only 7/10 days of WB-XRT last dose 3 weeks ago and could not tolerated any further, now has been bed bound for about 10 days now, over last 2 days confused and having increasing pain. See my note from 06/04/20 for more details of cancer condition. This am, pt not really responsive to me. But did receive morphine at 4 am, per nursing has been crying out in pain and that is why she received the meds. I discussed condition w/ who is POA and understands her condition and agrees that hospice is appropriate. Past Medical History Cardiac Medical History: Reports: Hypertension Denies: Atrial Fibrillation, Congestive Heart Failure, Coronary Artery Disease, DVT, Myocardial Infarction, Hyperlipidema, Pulmonary Embolism Pulmonary Medical History: Reports: Chronic Obstructive Pulmonary Disease (COPD) Denies: Asthma Neurological Medical History: Denies: Seizures Endocrine Medical History: Denies: Diabetes Mellitus Type 1, Diabetes Mellitus Type 2, Hyperthyroidism, Hypothyroidism Malignancy Medical History: Reports: Brain Cancer GI Medical History: Denies: Cirrhosis, Crohn's Disease, Gastroesophageal Reflux Disease, Hepatitis, Ulcerative Colitis Musculoskeltal Medical History: Denies: Arthritis - Chronic degenerative spinal disc disease with chronic back pain, Gout Skin Medical History: Denies: Eczema, Psoriasis Psychiatric Medical History: Reports: Depression Hematology: Denies: Anemia, Bleeding Tendencies Past Surgical History Past Surgical History: Reports: Carotid Endarterectomy, Orthopedic Surgery - Back surgery Social History Information Source: Patient Smoking Status: Unknown if Ever Smoked Frequency of Alcohol Use: None Hx Recreational Drug Use: No Drugs: None Hx Prescription Drug Abuse: No - Advance Directive Resuscitation Status: Do Not Resuscitate Family History Family History: Reviewed & Not Pertinent, CAD, CVA Parental Family History Reviewed: Yes Children Family History Reviewed: Yes Sibling(s) Family History Reviewed.: Yes Medication/Allergy Home Medications: Lansoprazole 30 mg PO Q6AM 11/20/19 Pregabalin [Lyrica 50 mg Capsule] 50 mg PO TID 11/20/19 Clonazepam [Klonopin] 0.5 mg PO BIDP PRN 06/03/20 Dexamethasone [Decadron 4 mg Tablet] 4 mg PO BID 06/03/20 Mirtazapine [Remeron 15 mg Tablet] 15 mg PO QHS 06/03/20 Albuterol Sulfate [Ventolin Hfa 8 gm Mdi] 1 puff IH QAM 07/11/20 Aspirin [Aspirin 81 mg Chewable Tablet] 81 mg PO DAILY 07/11/20 Cyclobenzaprine HCl 5 mg PO Q8HP PRN 07/11/20 Fluticasone/Vilanterol [Breo 100-25 Mcg Ellipta 14 Dose/Dpi] 1 puff IH DAILY 07/11/20 Levetiracetam [Keppra Xr] 750 mg PO Q12 07/11/20 Oxycodone HCl [Oxy-Ir 5 mg Tablet] 10 mg PO Q4HP PRN 07/11/20 Allergies/Adverse Reactions: ibuprofen Allergy (Verified 07/11/20 10:41) Penicillins Allergy (Verified 07/11/20 10:41) Review of Systems Constitutional: ABSENT: chills, fever(s), headache(s), weight gain, weight loss Eyes: ABSENT: visual disturbances Ears: ABSENT: hearing changes Cardiovascular: ABSENT: chest pain, dyspnea on exertion, edema, orthropnea, palpitations Respiratory: ABSENT: cough, hemoptysis Gastrointestinal: ABSENT: abdominal pain, constipation, diarrhea, hematemesis, hematochezia, nausea, vomiting Genitourinary: ABSENT: dysuria, hematuria Musculoskeletal: ABSENT: joint swelling Integumentary: ABSENT: rash, wounds Neurological: ABSENT: abnormal gait, abnormal speech, confusion, dizziness, focal weakness, syncope Psychiatric: ABSENT: anxiety, depression, homidical ideation, suicidal ideation Endocrine: ABSENT: cold intolerance, heat intolerance, polydipsia, polyuria Hematologic/Lymphatic: ABSENT: easy bleeding, easy bruising Physical Exam Vital Signs: Temp Pulse Resp BP Pulse Ox 97.3 F 98 12 108/63 89 L 07/12/20 00:19 07/12/20 02:00 07/12/20 00:19 07/12/20 00:19 07/12/20 00:19 Intake & Output 07/11/20 07/12/20 07/13/20 06:59 06:59 06:59 Intake Total 4186 Output Total 920 Balance 3266 Weight 53 kg General appearance: PRESENT: no acute distress, well-developed, well-nourished Head exam: PRESENT: atraumatic, normocephalic Eye exam: PRESENT: conjunctiva pink, EOMI, PERRLA. ABSENT: scleral icterus Ear exam: PRESENT: normal external ear exam Mouth exam: PRESENT: moist, tongue midline Neck exam: ABSENT: carotid bruit, JVD, lymphadenopathy, thyromegaly Respiratory exam: PRESENT: clear to auscultation josé luis. ABSENT: rales, rhonchi, wheezes Cardiovascular exam: PRESENT: RRR. ABSENT: diastolic murmur, rubs, systolic murmur Pulses: PRESENT: normal dorsalis pedis pul Vascular exam: PRESENT: normal capillary refill GI/Abdominal exam: PRESENT: normal bowel sounds, soft. ABSENT: distended, guarding, mass, organolmegaly, rebound, tenderness Rectal exam: PRESENT: deferred Extremities exam: PRESENT: full ROM. ABSENT: calf tenderness, clubbing, pedal edema Neurological exam: PRESENT: alert, awake, oriented to person, oriented to place, oriented to time, oriented to situation, CN II-XII grossly intact. ABSENT: motor sensory deficit Psychiatric exam: PRESENT: appropriate affect, normal mood. ABSENT: homicidal ideation, suicidal ideation Skin exam: PRESENT: dry, intact, warm. ABSENT: cyanosis, rash Results Laboratory Results: 07/11/20 07/11/20 07/11/20 11:09 11:09 11:09 WBC 19.4 H RBC 4.53 Hgb 10.7 L Hct 34.4 L MCV 76 L MCH 23.5 L MCHC 31.0 L RDW 19.4 H Plt Count 627 H Seg Neutrophils % 83.0 H VBG pH 7.45 H VBG pCO2 54.1 VBG HCO3 36.9 H VBG Base Excess 11.2 Sodium 135.4 L Potassium 3.7 Chloride 92 L Carbon Dioxide 34 H Anion Gap 9 BUN 27 H Creatinine 0.54 Est GFR ( Amer) > 60 Glucose 97 Lactic Acid Calcium 14.7 H* Total Bilirubin 0.8 AST 24 Alkaline Phosphatase 292 H Total Protein 6.8 Albumin 2.9 L Urine Color Urine Appearance Urine pH Ur Specific [place] Urine Protein Urine Glucose (UA) Urine Ketones Urine Blood Urine RBC (Auto) 07/11/20 07/11/20 07/11/20 11:09 11:09 13:39 WBC RBC Hgb Hct MCV MCH MCHC RDW Plt Count Seg Neutrophils % VBG pH VBG pCO2 VBG HCO3 VBG Base Excess Sodium Potassium Chloride Carbon Dioxide Anion Gap BUN Creatinine Est GFR ( Amer) Glucose Lactic Acid 1.7 1.1 Calcium Total Bilirubin AST Alkaline Phosphatase Total Protein Albumin Urine Color YELLOW Urine Appearance CLEAR Urine pH 5.0 Ur Specific [place] 1.018 Urine Protein NEGATIVE Urine Glucose (UA) NEGATIVE Urine Ketones NEGATIVE Urine Blood NEGATIVE Urine RBC (Auto) 1 07/11/20 07/11/20 22:35 22:35 WBC RBC Hgb Hct MCV MCH MCHC RDW Plt Count Seg Neutrophils % VBG pH VBG pCO2 VBG HCO3 VBG Base Excess Sodium 136.6 L Potassium 2.9 L* Chloride 100 Carbon Dioxide 29 Anion Gap 8 BUN 19 Creatinine 0.30 L Est GFR ( Amer) > 60 Glucose 111 H Lactic Acid 0.9 Calcium 12.8 H* Total Bilirubin AST Alkaline Phosphatase Total Protein Albumin Urine Color Urine Appearance Urine pH Ur Specific [place] Urine Protein Urine Glucose (UA) Urine Ketones Urine Blood Urine RBC (Auto) 07/11/20 11:09 Troponin I < 0.012 Impressions: Chest X-Ray 07/11/20 10:40 IMPRESSION: Increasing left-sided opacification consistent with known mass along with effusion and atelectasis. Right upper lobe pulmonary nodule consistent with metastatic disease. Head CT 07/11/20 12:03 IMPRESSION: Stable cerebral metastases. No acute intracranial imaging finding. EVIDENCE OF ACUTE STROKE: NO. Assessment & Plan - Diagnosis (1) Metastatic breast cancer Is this a current diagnosis for this admission?: Yes Plan: No further treatment possible, life expectancy less than 6m. Plan home hospice. D/w family who agrees. Per has hospital bed and other items at home but will have d/c planning confirm. DNR placed on chart. - Time Time Spent: Greater than 70 Minutes
[2020-07-12 08:32] LABS: ABSOLUTE LYMPHOCYTES (AUTO) 1.8 10^3/uL (0.5-4.7); ABSOLUTE MONOCYTES (AUTO) 1.3 10^3/uL (0.1-1.4); ABSOLUTE NEUT (AUTO) 13.7 10^3/uL (1.7-8.2); BASOPHILS % (AUTO) 0.3 % (0-2); HEMATOCRIT 34.8 % (36.0-47.0); HEMOGLOBIN 11.1 g/dL (12.0-15.5); LYMPHOCYTES % (AUTO) 10.8 % (13-45); MEAN CORPUSCULAR HGB CONC 31.9 g/dL (32.0-36.0); MEAN CORPUSCULAR VOLUME 75 fl (80-97); MONOCYTES % (AUTO) 7.5 % (3-13); PLATELET COUNT 532 10^3/uL (150-450); RED BLOOD COUNT 4.63 10^6/uL (3.72-5.28); RED CELL DISTRIBUTION WIDTH 19.3 % (11.5-14.0); SEGMENTED NEUTROPHILS % (AUTO) 81.4 % (42-78); TOTAL CELLS COUNTED % (AUTO) 100 %; WHITE BLOOD COUNT 16.9 10^3/uL (4.0-10.5)
[2020-07-12] MEDS: INSULIN LISPRO 100 UNIT/ML 3 ML VIAL SUBCUT SCH ×4 (09:58→22:00)
[2020-07-12] MEDS: DOCUSATE SODIUM 100 MG CAPSULE PO SCH (09:59)
[2020-07-12] MEDS: LEVETIRACETAM 1000 MG/NACL-ISO 1,000 MG/100 ML RTUPB IV SCH ×2 (10:25→21:53)
[2020-07-12] MEDS: FAMOTIDINE INJ/PF 20 MG/2 ML SDV IV SCH ×2 (11:23→21:58)
[2020-07-12] MEDS: ENOXAPARIN SODIUM INJ 40 MG/0.4 ML DISP.SYRIN SUBCUT SCH (11:24)
[2020-07-12] MEDS: DEXAMETHASONE 4 MG TABLET PO SCH ×2 (11:24→17:13)
[2020-07-12 12:01] LABS: ANION GAP 8 (5-19); BLOOD UREA NITROGEN 12 mg/dL (7-20); CALCIUM 11.7 mg/dL (8.4-10.2); CARBON DIOXIDE 29 mmol/L (22-30); CHLORIDE 100 mmol/L (98-107); GLUCOSE 88 mg/dL (75-110); POTASSIUM 3.3 mmol/L (3.6-5.0)
[2020-07-12] MEDS ORDERED: FENTANYL 100 MCG/HR PATCH.TD72 TD SCH (12:30)
[2020-07-12] MEDS ORDERED: (PENDING PHARMACY ID) (Cyclobenzaprine Hcl [Cyclobenzaprine Hcl] 5 MG) PO PRN (16:50)
[2020-07-12] MEDS ORDERED: (PENDING PHARMACY ID) (Clonazepam [Klonopin] 0.5 MG) PO PRN (16:50)
--- NOTE | 2020-07-12 16:50 | PDOC PROGRESS REPORT ---
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, carotid stenosis status post carotid enterectomy who was recently admitted to [facility] for status epilepticus and subsequently transferred to [facility] where as per she stayed for 5 days and no intervention was done, patient was discharged home and was doing well, but about 2 weeks ago she received her radiation therapy she has been going down, who is present at the room is the source of history as patient is not providing any history due to severe generalized pain, as per patient having generalized pain, low appetite, low energy, dysphagia for solids, and weight loss. Patient has not had any fever, chills, nausea, vomiting, diarrhea, chest pain, shortness of breath or any seizure since being discharged from [facility]. In ED repeat head CT was unchanged from previous admission and on CMP calcium was noted to be above 15. Hospital was consulted for admission. 07/12/2020. Unfortunately no significant improvement of patient's pain, still complaining of generalized pain, and is awake and alert but unfortunately patient does not communicate much and when physical examination attempted patient cries in pain, patient is currently DNR after discussion with patient, and Dr. Connors her oncologist. Reason For Visit: HYPERCALCEMIA OF CML OF MALIGNANCY, METASTATIC Physical Exam Vital Signs: Temp Pulse Resp BP Pulse Ox 97.6 F 92 14 100/58 L 94 07/12/20 10:57 07/12/20 11:02 07/12/20 11:02 07/12/20 10:57 07/12/20 11:02 Intake & Output 07/11/20 07/12/20 07/13/20 06:59 06:59 06:59 Intake Total 4186 0 Output Total 920 1600 Balance 3266 -1600 Weight 53 kg General appearance: PRESENT: mild distress, other - Seems to be in a lot of pa in. Head exam: PRESENT: atraumatic, normocephalic Cardiovascular exam: PRESENT: RRR Extremities exam: PRESENT: other - Diffuse tenderness all over. Neurological exam: PRESENT: alert, awake, other - Patient does not provide much history, does not allow physical exam due to extreme pain. Results Laboratory Results: 07/12/20 05:44 07/12/20 11:00 1007/11/20 07/12/20 22:35 22:35 05:44 WBC 16.9 H RBC 4.63 Hgb 11.1 L Hct 34.8 L MCV 75 L MCH 24.0 L MCHC 31.9 L RDW 19.3 H Plt Count 532 H Seg Neutrophils % 81.4 H Sodium 136.6 L Potassium 2.9 L* Chloride 100 Carbon Dioxide 29 Anion Gap 8 BUN 19 Creatinine 0.30 L Est GFR ( Amer) > 60 Est GFR (Non-Af Amer) Glucose 111 H Lactic Acid 0.9 Calcium 12.8 H* Magnesium 07/12/20 07/12/20 07/12/20 05:44 09:38 11:00 WBC RBC Hgb Hct MCV MCH MCHC RDW Plt Count Seg Neutrophils % Sodium Cancelled Cancelled 137.3 Potassium Cancelled Cancelled 3.3 L Chloride Cancelled Cancelled 100 Carbon Dioxide Cancelled Cancelled 29 Anion Gap Cancelled Cancelled 8 BUN Cancelled Cancelled 12 Creatinine Cancelled Cancelled 0.33 L Est GFR ( Amer) Cancelled Cancelled > 60 Est GFR (Non-Af Amer) Cancelled Cancelled Glucose Cancelled Cancelled 88 Lactic Acid Calcium Cancelled Cancelled 11.7 H Magnesium Cancelled Cancelled 2.1 07/11/20 11:09 Troponin I < 0.012 Impressions: Chest X-Ray 07/11/20 10:40 IMPRESSION: Increasing left-sided opacification consistent with known mass along with effusion and atelectasis. Right upper lobe pulmonary nodule consistent with metastatic disease. Head CT 07/11/20 12:03 IMPRESSION: Stable cerebral metastases. No acute intracranial imaging finding. EVIDENCE OF ACUTE STROKE: NO. Assessment and Plan - Diagnosis (1) Hypercalcemia Is this a current diagnosis for this admission?: Yes Plan: Improving. Not optimized. Likely hypercalcemia of malignancy. Presented with corrected calcium of more than 15. Status post patient Malachi patient in ED on 07/11/2020. She was placed on IV fluids but noted to be hypoxic, IV fluids currently on hold. Resume IV fluids once appropriate, continue monitoring calcium, every 8 daily B MP. (2) Metastatic breast cancer Is this a current diagnosis for this admission?: Yes Plan: Recently diagnosed metastatic brain cancer. Followed by Dr. Connors. Last brain radiation 2 weeks ago. Patient is currently DNR as per discussion with Dr. Connors, and her . Patient is pending transfer to home hospice. (3) Carotid stenosis, left Is this a current diagnosis for this admission?: Yes Plan: Status post endarterectomy. Continue statins. (4) Hypertension Qualifiers: Is this a current diagnosis for this admission?: Yes Plan: Appears very dry, normotensive. Resume home meds. Adjust meds as needed. Outpatient PCP follow-up. (5) Pain of metastatic malignancy Is this a current diagnosis for this admission?: Yes Plan: Patient is complaining of generalized severe pain, would not allow physical examination as it increases her pain. Started on fentanyl patch with IV morphine as breakthrough. Continue current regimen, increase as needed, currently pending transfer to home hospice. - Time Time Spent with patient: 25-34 minutes Medications reviewed and adjusted accordingly: Yes Anticipated Discharge Disposition: Hospice Center Anticipated Discharge Timeframe: within 24 hours
[2020-07-12] MEDS ORDERED: CLONAZEPAM 1 MG TABLET PO PRN (16:55)
[2020-07-12] MEDS ORDERED: CYCLOBENZAPRINE HCL 10 MG TABLET PO PRN (16:56)
[2020-07-12] MEDS ORDERED: POTASSI CL 20 MEQ/50 ML RIDER 20 MEQ/50 ML RTUPB IV ONE (17:00)
[2020-07-12] MEDS: PREGABALIN 50 MG CAPSULE PO SCH (21:59)
[2020-07-12] MEDS ORDERED: MIRTAZAPINE 15 MG TABLET PO SCH (22:00)
[2020-07-12 23:31] LABS: ANION GAP 7 (5-19); BLOOD UREA NITROGEN 11 mg/dL (7-20); CALCIUM 11.6 mg/dL (8.4-10.2); CARBON DIOXIDE 31 mmol/L (22-30); CHLORIDE 99 mmol/L (98-107); GLUCOSE 84 mg/dL (75-110); POTASSIUM 3.4 mmol/L (3.6-5.0)
[2020-07-13] MEDS: MORPHINE SULFATE 10 MG/ML INJ IV PRN ×4 (00:30→12:40)
[2020-07-13] MEDS: PREGABALIN 50 MG CAPSULE PO SCH (05:35)
--- NOTE | 2020-07-13 08:19 | PDOC PROGRESS REPORT ---
Subjective Progress Note for:: 07/13/20 Subjective:: Home hospice should be in place, pt should d/c home today Reason For Visit: HYPERCALCEMIA OF CML OF MALIGNANCY, METASTATIC Physical Exam Vital Signs: Temp Pulse Resp BP Pulse Ox 97.7 F 108 H 18 98/61 L 96 07/13/20 00:10 07/13/20 07:00 07/13/20 00:10 07/13/20 00:10 07/13/20 00:10 Intake & Output 07/12/20 07/13/20 07/14/20 06:59 06:59 06:59 Intake Total 4186 1250 Output Total 920 2925 Balance 3266 -0997 Weight 53 kg 55 kg Results Laboratory Results: 07/12/20 05:44 07/12/20 22:48 07/12/20 07/12/20 07/12/20 05:44 05:44 09:38 WBC 16.9 H RBC 4.63 Hgb 11.1 L Hct 34.8 L MCV 75 L MCH 24.0 L MCHC 31.9 L RDW 19.3 H Plt Count 532 H Seg Neutrophils % 81.4 H Sodium Cancelled Cancelled Potassium Cancelled Cancelled Chloride Cancelled Cancelled Carbon Dioxide Cancelled Cancelled Anion Gap Cancelled Cancelled BUN Cancelled Cancelled Creatinine Cancelled Cancelled Est GFR ( Amer) Cancelled Cancelled Est GFR (Non-Af Amer) Cancelled Cancelled Glucose Cancelled Cancelled Calcium Cancelled Cancelled Magnesium Cancelled Cancelled 07/12/20 07/12/20 11:00 22:48 WBC RBC Hgb Hct MCV MCH MCHC RDW Plt Count Seg Neutrophils % Sodium 137.3 136.8 L Potassium 3.3 L 3.4 L Chloride 100 99 Carbon Dioxide 29 31 H Anion Gap 8 7 BUN 12 11 Creatinine 0.33 L 0.36 L Est GFR ( Amer) > 60 > 60 Est GFR (Non-Af Amer) Glucose 88 84 Calcium 11.7 H 11.6 H Magnesium 2.1 07/11/20 11:09 Troponin I < 0.012 Impressions: Chest X-Ray 07/11/20 10:40 IMPRESSION: Increasing left-sided opacification consistent with known mass along with effusion and atelectasis. Right upper lobe pulmonary nodule consistent with metastatic disease. Head CT 10/12/20 12:03 IMPRESSION: Stable cerebral metastases. No acute intracranial imaging finding. EVIDENCE OF ACUTE STROKE: NO. Assessment & Plan - Diagnosis (1) Metastatic breast cancer Is this a current diagnosis for this admission?: Yes Plan: No further rx planned, d/c w/ home hospice today hopefully. - Time Time Spent with patient: 15-24 minutes
[2020-07-13] MEDS: INSULIN LISPRO 100 UNIT/ML 3 ML VIAL SUBCUT SCH ×2 (09:34→11:57)
[2020-07-13] MEDS: DOCUSATE SODIUM 100 MG CAPSULE PO SCH (09:35)
[2020-07-13] MEDS: DEXAMETHASONE 4 MG TABLET PO SCH (09:35)
[2020-07-13] MEDS: ENOXAPARIN SODIUM INJ 40 MG/0.4 ML DISP.SYRIN SUBCUT SCH (09:35)
[2020-07-13] MEDS: LEVETIRACETAM 1000 MG/NACL-ISO 1,000 MG/100 ML RTUPB IV SCH (09:39)
[2020-07-13] MEDS: FAMOTIDINE INJ/PF 20 MG/2 ML SDV IV SCH (09:39)
[2020-07-13] MEDS ORDERED: FLUTICASONE/VILANTEROL 100-25 MCG/DOSE IH SCH (10:00)
[2020-07-13] MEDS ORDERED: INFLUENZA QUAD (6MOS+) 2020-21 VAC 0.5 ML SYR IM ONE (12:30)
[2020-07-13 13:10] VITALS: BP 101/62
--- NOTE | 2020-07-13 17:31 | PDOC DISCHARGE SUMMARY ---
Impression - Admit/DC Date/PCP Admission Date/Primary Care Provider: 07/11/20 14:06 OLIVIA MATA NP Discharge Date: 07/13/20 - Discharge Diagnosis (1) Metastatic breast cancer Is this a current diagnosis for this admission?: Yes (2) Hypercalcemia Is this a current diagnosis for this admission?: Yes (3) Carotid stenosis, left Is this a current diagnosis for this admission?: Yes (4) Hypercholesterolemia Is this a current diagnosis for this admission?: Yes (5) Hypertension Is this a current diagnosis for this admission?: Yes (6) Pain of metastatic malignancy Is this a current diagnosis for this admission?: Yes - Additional Information Resuscitation Status: Do Not Resuscitate Discharge Diet: As Tolerated Discharge Activity: Bedrest Referrals: [facility] [Outside] Prescriptions: Fentanyl [Duragesic 100 Mcg/Hr Transdermal Patch] 1 each TD Q3D@1000 #2 patch.[id number] Home Medications: Lansoprazole 30 mg PO Q6AM 11/20/19 Pregabalin [Lyrica 50 mg Capsule] 50 mg PO TID 11/20/19 Clonazepam [Klonopin] 0.5 mg PO BIDP PRN 06/03/20 Dexamethasone [Decadron 4 mg Tablet] 4 mg PO BID 06/03/20 Mirtazapine [Remeron 15 mg Tablet] 15 mg PO QHS 06/03/20 Albuterol Sulfate [Ventolin Hfa 8 gm Mdi] 1 puff IH QAM 07/11/20 Cyclobenzaprine HCl 5 mg PO Q8HP PRN 07/11/20 Fluticasone/Vilanterol [Breo 100-25 Mcg Ellipta 14 Dose/Dpi] 1 puff IH DAILY 07/11/20 Levetiracetam [Keppra Xr] 750 mg PO Q12 07/11/20 Oxycodone HCl [Oxy-Ir 5 mg Tablet] 10 mg PO Q4HP PRN 07/11/20 Fentanyl [Duragesic 100 Mcg/Hr Transdermal Patch] 1 each TD Q3D@1000 #2 patch.[id number] 07/13/20 History of Present Illiness History of Present Illness: PAULA JOHNSON is a 54 year old female with past medical history of stage IV breast cancer, seizure disorder secondary to brain metastasis, carotid stenosis status post carotid enterectomy who was recently admitted to [facility] for status epilepticus and subsequently transferred to [facility] where as per she stayed for 5 days and no intervention was done, patient was discharged home and was doing well, but about 2 weeks ago she received her radiation therapy she has been going down, who is present at the room is the source of history as patient is not providing any history due to severe generalized pain, as per patient having generalized pain, low appetite, low energy, dysphagia for solids, and weight loss. Patient has not had any fever, chills, nausea, vomiting, diarrhea, chest pain, shortness of breath or any seizure since being discharged from [facility]. In ED repeat head CT was unchanged from previous admission and on CMP calcium was noted to be above 15. Hospital was consulted for admission. Hospital Course Hospital Course: After she was admitted she was seen in consultation by Dr. Connors who recommended hospice for her. We have increased some of her pain medication by adding a fentanyl patch. Her family was in agreement with the plan for hospice. The appropriate arrangements were made for her, we received notification that everything was ready today and she was discharged this morning. Physical Exam Vital Signs: Temp Pulse Resp BP Pulse Ox 97.7 F 108 H 18 115/58 L 96 07/13/20 12:24 07/13/20 12:24 07/13/20 12:24 07/13/20 12:24 07/13/20 12:24 Intake & Output 07/12/20 07/13/20 07/14/20 06:59 06:59 06:59 Intake Total 4186 1250 Output Total 920 2925 Balance 3266 -1675 Weight 53 kg 55 kg General appearance: PRESENT: mild distress, other -even when she rests she appears to have a bit of a grimace. Head exam: PRESENT: atraumatic, normocephalic Cardiovascular exam: PRESENT: RRR Extremities exam: PRESENT: other - Diffuse tenderness all over. Neurological exam: PRESENT: alert, awake, other - Patient does not provide much history, does not allow physical exam due to extreme pain. Results Laboratory Results: WBC 16.9 10^3/uL (4.0-10.5) H 07/12/20 05:44 RBC 4.63 10^6/uL (3.72-5.28) 07/12/20 05:44 Hgb 11.1 g/dL (12.0-15.5) L 07/12/20 05:44 Hct 34.8 % (36.0-47.0) L 07/12/20 05:44 MCV 75 fl (80-97) L 07/12/20 05:44 MCH 24.0 pg (27.0-33.4) L 07/12/20 05:44 MCHC 31.9 g/dL (32.0-36.0) L 07/12/20 05:44 RDW 19.3 % (11.5-14.0) H 07/12/20 05:44 Plt Count 532 10^3/uL (150-450) H 07/12/20 05:44 Lymph % (Auto) 10.8 % (13-45) L 07/12/20 05:44 [place] % (Auto) 7.5 % (3-13) 07/12/20 05:44 Eos % (Auto) 0.0 % (0-6) 07/12/20 05:44 Baso % (Auto) 0.3 % (0-2) 07/12/20 05:44 Absolute Neuts (auto) 13.7 10^3/uL (1.7-8.2) H 07/12/20 05:44 Absolute Lymphs (auto) 1.8 10^3/uL (0.5-4.7) 07/12/20 05:44 Absolute Monos (auto) 1.3 10^3/uL (0.1-1.4) 07/12/20 05:44 Absolute Eos (auto) 0.0 10^3/uL (0.0-0.6) 07/12/20 05:44 Absolute Basos (auto) 0.0 10^3/uL (0.0-0.2) 07/12/20 05:44 Seg Neutrophils % 81.4 % (42-78) H 07/12/20 05:44 PT 13.8 SEC (11.4-15.4) 07/11/20 11:09 INR 1.04 07/11/20 11:09 VBG pH 7.45 (7.30-7.42) H 07/11/20 11:09 VBG pCO2 54.1 mmHg (35-63) 07/11/20 11:09 VBG HCO3 36.9 mmol/L (20-32) H 07/11/20 11:09 VBG Base Excess 11.2 mmol/L 07/11/20 11:09 Sodium 136.8 mmol/L (137-145) L 07/12/20 22:48 Potassium 3.4 mmol/L (3.6-5.0) L 07/12/20 22:48 Chloride 99 mmol/L (98-107) 07/12/20 22:48 Carbon Dioxide 31 mmol/L (22-30) H 07/12/20 22:48 Anion Gap 7 (5-19) 07/12/20 22:48 BUN 11 mg/dL (7-20) 07/12/20 22:48 Creatinine 0.36 mg/dL (0.52-1.25) L 07/12/20 22:48 Est GFR ( Amer) > 60 (>60) 07/12/20 22:48 Est GFR (Non-Af Amer) Cancelled 07/12/20 09:38 Est GFR (MDRD) Non-Af > 60 (>60) 07/12/20 22:48 Glucose 84 mg/dL (75-110) 07/12/20 22:48 POC Glucose 89 mg/dL (70-110) 07/13/20 06:17 Lactic Acid 0.9 mmol/L (0.7-2.1) 07/11/20 22:35 Calcium 11.6 mg/dL (8.4-10.2) H 07/12/20 22:48 Magnesium 2.1 mg/dL (1.6-2.3) 07/12/20 11:00 Total Bilirubin 0.8 mg/dL (0.2-1.3) 07/11/20 11:09 Direct Bilirubin 0.5 mg/dL (0.0-0.4) H 07/11/20 11:09 Neonat Total Bilirubin Not Reportable 07/11/20 11:09 Neonat Direct Bilirubin Not Reportable 07/11/20 11:09 Neonat Indirect Bili Not Reportable 07/11/20 11:09 AST 24 U/L (14-36) 07/11/20 11:09 ALT 31 U/L (<35) 07/11/20 11:09 Alkaline Phosphatase 292 U/L (38-126) H 07/11/20 11:09 Troponin I < 0.012 ng/mL 07/11/20 11:09 Total Protein 6.8 g/dL (6.3-8.2) 07/11/20 11:09 Albumin 2.9 g/dL (3.5-5.0) L 07/11/20 11:09 EGFR Cancelled 07/12/20 09:38 Urine Color YELLOW 07/11/20 11:09 Urine Appearance CLEAR 07/11/20 11:09 Urine pH 5.0 (5.0-9.0) 07/11/20 11:09 Ur Specific [place] 1.018 07/11/20 11:09 Urine Protein NEGATIVE mg/dL (NEGATIVE) 07/11/20 11:09 Urine Glucose (UA) NEGATIVE mg/dL (NEGATIVE) 07/11/20 11:09 Urine Ketones NEGATIVE mg/dL (NEGATIVE) 07/11/20 11:09 Urine Blood NEGATIVE (NEGATIVE) 07/11/20 11:09 Urine Nitrite (Reflex) NEGATIVE (NEGATIVE) 07/11/20 11:09 Urine Bilirubin NEGATIVE (NEGATIVE) 07/11/20 11:09 Urine Urobilinogen 2.0 mg/dL (<2.0) H 07/11/20 11:09 Leukocyte Esterase Rfl NEGATIVE (NEGATIVE) 07/11/20 11:09 Urine RBC (Auto) 1 /HPF 07/11/20 11:09 Urine Bacteria (Auto) 1+ /HPF 07/11/20 11:09 Urine WBC (Reflex) 4 /HPF 07/11/20 11:09 Squamous Epi Cells Auto 2 /HPF 07/11/20 11:09 Urine Mucus (Auto) RARE /LPF 07/11/20 11:09 Urine Ascorbic Acid NEGATIVE (NEGATIVE) 07/11/20 11:09 07/11/20 11:09 Troponin I < 0.012 Impressions: Chest X-Ray 07/11/20 10:40 IMPRESSION: Increasing left-sided opacification consistent with known mass along with effusion and atelectasis. Right upper lobe pulmonary nodule consistent with metastatic disease. Head CT 07/11/20 12:03 IMPRESSION: Stable cerebral metastases. No acute intracranial imaging finding. EVIDENCE OF ACUTE STROKE: NO. Plan Time Spent: Greater than 30 Minutes Stroke Is this a Stroke Patient?: No Acute Heart Failure Is this a Heart Failure Patient?: No
[2020-07-14] MEDS ORDERED: INFLUENZA QUAD (6MOS+) 2020-21 VAC 0.5 ML SYR IM ONE (08:00)
== END 2020-07-13 13:05 | disposition hospice, inpatient (51) | DRG 641 ==
LOC: ER 10:35 → EH 14:06 → 4N 17:03
PROVIDERS: ADMIT Internal Medicine; ATTEND Family Medicine
DX: E83.52 Hypercalcemia (principal); C79.31 Secondary malignant neoplasm of brain; I10 Essential (primary) hypertension; C50.919 Malignant neoplasm of unspecified site of unspecified female breast; G89.3 Neoplasm related pain (acute) (chronic); I65.22 Occlusion and stenosis of left carotid artery; G40.909 Epilepsy, unspecified, not intractable, without status epilepticus; R13.10 Dysphagia, unspecified; Z66 Do not resuscitate; Z79.899 Other long term (current) drug therapy; Z86.73 Personal history of transient ischemic attack (TIA), and cerebral infarction without residual deficits; Z88.6 Allergy status to analgesic agent; Z88.0 Allergy status to penicillin; Z23 Encounter for immunization
CPT/HCPCS: 36415; 70450; 71045; 80048; 80053; 81001; 82803; 82962; 83605; 83735; 84484; 85025; 85610; 87040; 90471; 90686; 93005; 93010; 96361; 96374; 96375; 99285; G0008; J1953; J2270; J3480; J3489; J3490; J7030; J8540; S0028